=== PATIENT | female | born 1945 | race Caucasian/White ===

== ENCOUNTER 2020-10-18 05:17 | Emergency (ER) | payer MEDICARE, MEDICAID, SELFPAY ==
--- NOTE | ~2020-10-18 | CT_ITS ---
EXAMINATION: NONCONTRAST HEAD CT NONCONTRAST CERVICAL SPINE CT INDICATION INFORMATION: Fall COMPARISON: None TECHNIQUE: Separate noncontrast CT examinations of the head and cervical spine were performed. Coronal and sagittal images were created for each examination at the technologist workstation. This CT examination was performed using dose optimization techniques as appropriate, variously including the following: *Automated exposure control *Adjustment of mA and/or kV according to patient size (this includes techniques or standardized protocols for targeted exams where dose is matched to indication/reason for exam; i.e. extremities or head) *Use of iterative reconstruction technique DLP: 1184 mGy-cm FINDINGS: Head: There is no evidence of acute intracranial hemorrhage or territorial infarction. No abnormal mass effect or midline shift is seen. Osborne to white matter differentiation is well preserved. No extra-axial fluid collections are identified. No hydrocephalus. No significant volume loss. Patchy periventricular and deep white matter hypoattenuation is consistent with mild small vessel ischemic changes. No acute osseous or soft tissue abnormality. The mastoid air cells and visualized portions of the paranasal sinuses are well aerated. Cervical spine: Straightening of the normal cervical lordosis. There is otherwise anatomic alignment of the vertebral bodies and posterior elements. The atlantoaxial and atlantooccipital articulations are intact. Vertebral body heights are maintained. There is multilevel intervertebral disc space narrowing with endplate osteophyte formation and facet arthropathy. No evidence of acute fracture. No prevertebral soft tissue swelling. Emphysema noted at the lung apices.. The thyroid gland is unremarkable. CT/CT cervical spine wo con IMPRESSION: 1. No acute intracranial finding. 2. No fracture or malalignment of the cervical spine. Moderate degenerative change.
--- NOTE | ~2020-10-18 | XR_ITS ---
EXAMINATION: XR FOOT, RIGHT CLINICAL INFORMATION: Pain at the midfoot after fall COMPARISON: 07/18/2016 TECHNIQUE: AP, lateral, and oblique views of the right foot. FINDINGS: There is no fracture or dislocation. Alignment is maintained. Mild soft tissue swelling at the ankle and midfoot. Joint spaces are maintained. XR/XR foot RT 2V IMPRESSION: Soft tissue swelling. No fracture or malalignment.
[2020-10-18 05:33] VITALS: BP 108/72; BP 136/74; PULSE 71; PULSE 76; RESP 16; TEMP 36.4; O2SAT 94; O2SAT 95; BMI 31.9
--- NOTE | 2020-10-18 05:35 | ED.FALL ---
HPI - Fall General Chief Complaint: Fall Stated Complaint: FALL FROM WHEELCHAIR Time Seen by Provider: 10/18/20 05:33 Source: patient Mode of arrival: EMS History of Present Illness HPI Narrative: This is a 75-year-old female with history of cerebral palsy and lives at home alone and gets around the home with a wheelchair. Patient states that she takes a lot of medication at bedtime and when she got up to use the restroom states that she became weak resulting in her ?sliding out of her wheelchair and landing on the hard floor?. She denies head strike or loss of consciousness but states that her right foot hurts. Otherwise, she denies any recent fever, chills, cough, shortness of breath/chest pain, GI symptoms, or urinary pain/burning/frequency. Related Data Home Medications Medication Instructions Recorded Confirmed cyclobenzaprine 1 tab PO BID 10/18/20 10/18/20 diazepam 1 tab PO TID 10/18/20 10/18/20 gabapentin 1 - 2 cap PO BEDTIME PRN 10/18/20 10/18/20 metoprolol succinate 1 tab PO DAILY 10/18/20 10/18/20 simvastatin 1 tab PO DAILY 10/18/20 10/18/20 sulindac 1 tab PO BID 10/18/20 10/18/20 Allergies Allergy/AdvReac Type Severity Reaction Status Date / Time No Known Allergies Allergy Verified 10/18/20 05:39 [No Known Allergies*] Review of Systems Review of Systems: Pertinent positives and negatives as stated in HPI 10 point review of systems is otherwise negative. PMFSH Past Medical History Source: nursing notes reviewed Social History Social History Advance Directives: No Physical Exam Vital Signs: Vital Signs: Last Vital Signs Temp 97.6 F 10/18/20 05:33 Pulse 71 10/18/20 05:33 Resp 16 10/18/20 05:33 BP 108/72 10/18/20 05:33 Pulse Ox 94 10/18/20 05:33 Body Mass Index 31.9 VITAL SIGNS: Reviewed. GENERAL: Well developed, well nourished, in no acute distress. HEAD: Normocephalic/atraumatic, EYES: PERRLA, EOMI NOSE: Nares patent bilateral OROPHARYNX: no oral lesions noted, posterior pharynx clear NECK: C-collar in place without midline cervical spine tenderness on palpation LUNGS: Normal breath sounds. SpO2<> CARDIOVASCULAR: Regular rate and rhythm without noted murmurs ABDOMEN: Soft, non-tender, non-distended with bowel sounds. RIGHT FOOT: NO TENDERNESS ON PALPATION TO MEDIAL/LATERAL MALLEOLI/HEEL, BUT MID FOOT TENDERNESS NOTED WITHOUT OBVIOUS DEFORMITY, NO TOE TENDERNESS ON PALPATION, OTHERWISE NEUROVASCULARLY INTACT WITH CAPILLARY REFILL LESS THAN 3 SECONDS AND PALPABLE DP/PT. SKIN: Inspection of the skin reveals no rashes NEUROLOGIC: Alert and oriented x 4. Course Course Course Narrative: This is a 75-year-old female with history and clinical presentation consistent with minor fall from wheelchair without head strike or loss of consciousness, will evaluate for evidence of infection/anemia/arrhythmia for possible etiologies as she does live at home by herself. In addition, will obtain CT head/C-spine as well as x-ray of right foot. Signed out to Dr Gil: Plan to f/u labs/CT/EKG/UA and likely discharge to home. Discharge Plan Discharge Prescriptions: No Action metoprolol succinate 100 mg tablet extended release 24 hr 1 tab PO DAILY RF: 0 simvastatin 80 mg tablet 1 tab PO DAILY RF: 0 gabapentin 300 mg capsule 1 - 2 cap PO BEDTIME PRN (Reason: insomnia) RF: 0 sulindac 200 mg tablet 1 tab PO BID RF: 0 diazepam 5 mg tablet 1 tab PO TID RF: 0 cyclobenzaprine 5 mg tablet 1 tab PO BID RF: 0
--- NOTE | 2020-10-18 05:41 | ECG_ITS ---
Test Reason : FALL Blood Pressure : / mmHG Vent. Rate : 072 BPM Atrial Rate : 072 BPM P-R Int : 148 ms QRS Dur : 086 ms QT Int : 400 ms P-R-T Axes : 044 045 043 degrees QTc Int : 438 ms Normal sinus rhythm Normal ECG When compared with ECG of 01-MAR-2020 13:12, Vent. rate has decreased BY [address] elevation now present in Inferior leads Nonspecific T wave abnormality has replaced inverted T waves in Inferior leads Referred By: Heather Frias Electronically Signed By:DAPHNEY PORTER MD
[2020-10-18 06:00] VITALS: BP 127/55; PULSE 70; RESP 16; TEMP 37.1; O2SAT 95
[2020-10-18 06:31] LABS: Basophils Percent Auto 0.4 % (0-2); Eosinophils Absolute Auto 0.1 X10*3/uL (0.0-0.4); Eosinophils Percent Auto 2.1 % (0-4); Hematocrit 40.6 % (37-47); Hemoglobin 13.5 g/dl (12.0-16.0); Imm Gran Abs Auto 0.02 X10*3/uL (0.00-0.03); Imm Gran Pct Auto 0.3 % (0.0-0.4); Lymphocytes Absolute Auto 1.6 X10*3/uL (1.2-4.9); Lymphocytes Percent Auto 23.7 % (20-40); MANUAL DIFF FLAG NO; Mean Corpuscular HGB Conc 33.3 g/dl (31.0-35.0); Mean Corpuscular Hemoglobin 29.9 pg (27.0-33.0); Mean Platelet Volume 8.8 fL (9.4-12.3); Monocytes Absolute Auto 0.6 X10*3/uL (0.1-1.2); Monocytes Percent Auto 8.7 % (2-11); Neutrophils Absolute Auto 4.4 X10*3/uL (2.0-8.3); Neutrophils Percent Auto 64.8 % (45-73); Platelet Count 201 X10*3/uL (160-400); Red Blood Count 4.51 X10*6/uL (4.20-5.50); Red Cell Distribution Width 12.4 % (11.0-16.0); White Blood Count 6.8 X10*3/uL (4.8-10.8)
[2020-10-18 06:34] LABS: Glucose Urine UA NEG (NEG); Leukocyte Esterase Urine NEG (NEG); Nitrite Urine NEG (NEG); Specific Gravity - Urine >= 1.030 (1.005-1.025); Urine Blood NEG (NEG); Urine Ketones NEG (NEG); Urine Protein NEG (NEG-TRACE)
[2020-10-18 06:36] LABS: Appearance Urine CLEAR; Color Urine YELLOW
[2020-10-18 07:02] LABS: Alanine Aminotransferase 15 U/L (0-31); Albumin Level 4.1 g/dL (3.5-5.0); Alkaline Phosphatase 102 U/L (39-117); Anion Gap 10 (12-20); Aspartate Amino Transferase 15 U/L (5-31); Bilirubin Total 0.6 mg/dL (0.0-1.0); Blood Urea Nitrogen 19 mg/dL (9-16); Carbon Dioxide 26 mmol/L (22-29); Chloride 109 mmol/L (96-108); Creatinine Clr Calc Pharmacy 69.5; Estimated Glomerular Filt Rate > 60; Glucose Random 94 mg/dL (60-115); Sodium 141 mmol/L (135-145); Total Protein 6.3 g/dL (6.5-8.0)
[2020-10-18 10:16] VITALS: BP 127/55; PULSE 70; O2SAT 95
--- NOTE | 2020-10-18 10:18 | MHC.CM.ED ---
pt lives in [facility], she is wc bound, but trnfrs independently from bed to wc to toilet, etc...she does not use or own a walker c trnfrs. PT did see patient and they are recommending Acute Rehab, however despite this recommendation pt is choosing to return home c vna for nsg and home PT. a ref. for this has been made. pt says she will need ambulance c stretcher for transport back, she also says there is nobody we at [facility] need to contact at her [facility] prior to her returning. pt has [facility] for [employer] 4d/wk - 1-2 hrs per visit. she is also eligible for MOW which she may chose to start to recieve. dc plan is home c vna for nsg and home PT. [facility] and . are aware of this dc plan cm to cont to follow.
== END 2020-10-18 12:06 | disposition home or self-care (01) ==
PROVIDERS: Student in an Organized Health Care Education/Training Program; Emergency Provider Emergency Medicine Emergency Medical Services; PCP Internal Medicine
DX: S99.921A Unspecified injury of right foot, initial encounter (principal); M54.2 Cervicalgia; M79.671 Pain in right foot; G44.309 Post-traumatic headache, unspecified, not intractable; G80.9 Cerebral palsy, unspecified; W05.0XXA Fall from non-moving wheelchair, initial encounter; Y93.9 Activity, unspecified; Y92.002 Bathroom of unspecified non-institutional (private) residence as the place of occurrence of the external cause; Y99.9 Unspecified external cause status; Z79.899 Other long term (current) drug therapy
CPT/HCPCS: 36415; 51702; 70450; 72125; 73620; 80053; 81003; 85025; 93005; 97162; 99283; 99284

== ENCOUNTER 2021-04-27 18:27 | Emergency (ER) | payer MEDICARE, OTHER, SELFPAY ==
--- NOTE | ~2021-04-27 | CT_ITS ---
EXAMINATION: CT HEAD WITHOUT CONTRAST CLINICAL INFORMATION: Severe dizziness COMPARISON: 10/18/2020 TECHNIQUE: Contiguous axial imaging was performed from the skull base to vertex without intravenous administration of contrast. This CT examination was performed using dose optimization techniques as appropriate, variously including the following: *Automated exposure control *Adjustment of mA and/or kV according to patient size (this includes techniques or standardized protocols for targeted exams where dose is matched to indication/reason for exam; i.e. extremities or head) *Use of iterative reconstruction technique DLP: 763 mGy-cm FINDINGS: Cavitation is degraded by patient motion. There is no evidence of acute intracranial hemorrhage or territorial infarction. No abnormal mass effect or midline shift is seen. Chronic and age-related periventricular white matter changes are again seen. Osborne to white matter differentiation is well preserved. No extra-axial fluid collections are identified. The ventricles are normal in size. There is no abnormal attenuation within the brain parenchyma. The osseous structures and soft tissues are normal. The mastoid air cells and visualized portions of the paranasal sinuses are well aerated. CT/CT head/brain wo con IMPRESSION: Although degraded by motion, I do not appreciate any superimposed acute intracranial process. No mass lesion or hemorrhage identified.
--- NOTE | 2021-04-27 18:40 | ED_ITS ---
HPI - Dizziness General Chief Complaint: Dizziness Stated Complaint: Dizziness, Nausea Time Seen by Provider: 04/27/21 18:33 Source: patient Mode of arrival: EMS Limitations: no limitations History of Present Illness HPI Narrative: Patient history of cerebral palsy and dystonia with frequent head movements complaining of been feeling dizzy since a.m. today especially when she lays down associated with nausea no vomiting no focal deficits no headache no fever no chills no cough or shortness of breath Related Data Home Medications Medication Instructions Recorded Confirmed cyclobenzaprine 5 mg tablet 1 tab PO BID 10/18/20 10/18/20 diazepam 5 mg tablet 1 tab PO TID 10/18/20 10/18/20 gabapentin 300 mg capsule 1 - 2 cap PO BEDTIME PRN 10/18/20 10/18/20 metoprolol succinate 100 mg 1 tab PO DAILY 10/18/20 10/18/20 tablet,extended release 24 hr simvastatin 80 mg tablet 1 tab PO DAILY 10/18/20 10/18/20 sulindac 200 mg tablet 1 tab PO BID 10/18/20 10/18/20 Previous Rx's Medication Instructions Recorded meclizine 25 mg tablet 25 mg PO TID PRN #14 tab 04/27/21 Allergies Allergy/AdvReac Type Severity Reaction Status Date / Time No Known Allergies Allergy Verified 10/18/20 05:39 [No Known Allergies*] Review of Systems Review of Systems: Yes all other systems are reviewed and are negative [facility] Past Medical History Medical History (Updated 04/28/21 @ 00:02 by Marry Guallpa) Cerebral palsy Social History Social History Advance Directives: No Advance Directives Information Provided: No Physical Exam Vital Signs: Vital Signs: Last Vital Signs Temp 98.1 F 04/27/21 20:00 Pulse 84 04/27/21 21:27 Resp 20 04/27/21 21:27 BP 142/76 H 04/27/21 21:27 Pulse Ox 98 04/27/21 20:00 Body Mass Index 36.6 Appearance: Alert. Oriented X3. No acute distress. Moving her head frequently secondary dystonia Eyes: PERRLA, No Nystagmus ENT: Pharynx normal. Oral Mucosa moist Neck: Normal inspection. Neck supple. CVS: Normal heart rate and rhythm. Pulses normal. Respiratory: No respiratory distress. Equal air entry bilateral, no wheezing/rales/rhonchi Abdomen: Soft and nontender. Bowel sounds are present, no mass palpable and no CVA tenderness Skin: Skin warm and dry. Normal skin color. Normal skin turgor. Extremities: No lower extremity edema. No calf tenderness Neuro: Oriented X 3. No motor deficit. No sensory deficit.No cerebellar signs , cranial nerves II-XII intact MDM - Dizziness MDM Narrative Medical decision making narrative: Patient clinically with benign positional vertigo CT head is negative no headache no fever no any signs of infection responded to meclizine and Ativan will discharge patient on meclizine patient already taking Valium at home Lab Data Attestation: I reviewed the patient's lab results. Result diagrams: 04/27/21 19:04/27/21 19: Labs: Lab Results 04/27/21 04/27/21 Range/Units 19: 19: WBC 6.3 (4.8-10.8) X10*3/uL RBC 4.36 (4.20-5.50) X10*6/uL Hgb 13.2 (12.0-16.0) g/dl Hct 39.2 (37-47) % MCV 89.9 (80-98) fL MCH 30.3 (27.0-33.0) pg MCHC 33.7 (31.0-35.0) g/dl RDW 12.9 (11.0-16.0) % Plt Count 220 (160-400) X10*3/uL MPV 8.9 L (9.4-12.3) fL Immature Gran % (Auto) 0.3 (0.0-0.4) % Neut % (Auto) 63.3 (45-73) % Lymph % (Auto) 24.6 (20-40) % [place] % (Auto) 8.1 (2-11) % Eos % (Auto) 3.2 (0-4) % Baso % (Auto) 0.5 (0-2) % Lymph # (Auto) 1.5 (1.2-4.9) X10*3/uL [place] # (Auto) 0.5 (0.1-1.2) X10*3/uL Eos # (Auto) 0.2 (0.0-0.4) X10*3/uL Baso # (Auto) 0.0 (0.0-0.2) X10*3/uL Abs Immat Gran (auto) 0.02 (0.00-0.03) X10*3/uL Absolute Neuts (auto) 4.0 (2.0-8.3) X10*3/uL Absolute Nucleated RBC 0.000 (0.0-0.012) X10*3/uL Nucleated RBC % (auto) 0.0 (0.0-0.2) /100WBC Sodium 139 (135-145) mmol/L Potassium 4.0 (3.3-5.1) mmol/L Chloride 107 (96-108) mmol/L Carbon Dioxide 24 (22-29) mmol/L Anion Gap 12 (12-20) BUN 16 (9-16) mg/dL Creatinine 0.73 (0.5-1.4) mg/dL Estim Creat Clear Calc 71.8 Estimated GFR > 60 Random Glucose 105 (60-115) mg/dL Calcium 9.3 (8.4-10.2) mg/dL Discharge Plan Discharge Clinical Impression: Benign paroxysmal positional vertigo Patient Disposition: Home, Self-Care Instructions: Benign Paroxysmal Positional Vertigo (ED) Additional Instructions: Take medication as advised For the PCP if not better Prescriptions: New meclizine 25 mg tablet 25 mg PO TID PRN (Reason: dizziness) Qty: 14 RF: 0 No Action metoprolol succinate 100 mg tablet extended release 24 hr 1 tab PO DAILY RF: 0 simvastatin 80 mg tablet 1 tab PO DAILY RF: 0 gabapentin 300 mg capsule 1 - 2 cap PO BEDTIME PRN (Reason: insomnia) RF: 0 sulindac 200 mg tablet 1 tab PO BID RF: 0 diazepam 5 mg tablet 1 tab PO TID RF: 0 cyclobenzaprine 5 mg tablet 1 tab PO BID RF: 0 Interventions: ED Discharge Assessment Last Done: 04/27/21 21:27 Discharge Date/Time: 04/27/21 21:28
[2021-04-27 18:43] VITALS: BP 150/72; PULSE 77; RESP 16; TEMP 36.6; O2SAT 98; BMI 36.6
[2021-04-27] MEDS: Meclizine HCl 25 MG TABLET PO (19:00)
--- NOTE | 2021-04-27 19:01 | PC.NURSE ---
Pt medicated per OCT. NSR on the monitor. Labs obtained and sent.
[2021-04-27 19:05] LABS: MANUAL DIFF FLAG NO
[2021-04-27 19:17] LABS: Basophils Percent Auto 0.5 % (0-2); Eosinophils Absolute Auto 0.2 X10*3/uL (0.0-0.4); Eosinophils Percent Auto 3.2 % (0-4); Hematocrit 39.2 % (37-47); Hemoglobin 13.2 g/dl (12.0-16.0); Imm Gran Abs Auto 0.02 X10*3/uL (0.00-0.03); Imm Gran Pct Auto 0.3 % (0.0-0.4); Lymphocytes Absolute Auto 1.5 X10*3/uL (1.2-4.9); Lymphocytes Percent Auto 24.6 % (20-40); Mean Corpuscular HGB Conc 33.7 g/dl (31.0-35.0); Mean Corpuscular Hemoglobin 30.3 pg (27.0-33.0); Mean Corpuscular Volume 89.9 fL (80-98); Mean Platelet Volume 8.9 fL (9.4-12.3); Monocytes Absolute Auto 0.5 X10*3/uL (0.1-1.2); Monocytes Percent Auto 8.1 % (2-11); Neutrophils Percent Auto 63.3 % (45-73); Platelet Count 220 X10*3/uL (160-400); Red Blood Count 4.36 X10*6/uL (4.20-5.50); Red Cell Distribution Width 12.9 % (11.0-16.0); White Blood Count 6.3 X10*3/uL (4.8-10.8)
[2021-04-27 19:21] LABS: Anion Gap 12 (12-20); Blood Urea Nitrogen 16 mg/dL (9-16); Calcium 9.3 mg/dL (8.4-10.2); Carbon Dioxide 24 mmol/L (22-29); Chloride 107 mmol/L (96-108); Creatinine Clr Calc Pharmacy 71.8; Estimated Glomerular Filt Rate > 60; Glucose Random 105 mg/dL (60-115); Sodium 139 mmol/L (135-145)
--- NOTE | 2021-04-27 19:46 | PC.NURSE ---
Labs obtained and sent.
[2021-04-27 20:00] VITALS: BP 145/71; PULSE 72; RESP 18; TEMP 36.7; O2SAT 98
[2021-04-27] MEDS: LORazepam 1 MG TABLET PO (20:22)
--- NOTE | 2021-04-27 20:22 | PC.NURSE ---
Pt reports no relief after Meclizine, medicated with Ativan per OCT.
[2021-04-27 21:27] VITALS: BP 142/76; PULSE 84; RESP 20
== END 2021-04-27 21:28 | disposition home or self-care (01) ==
PROVIDERS: Emergency Provider Internal Medicine
DX: H81.13 Benign paroxysmal vertigo, bilateral (principal); Z79.899 Other long term (current) drug therapy
CPT/HCPCS: 36415; 70450; 80048; 85025; 99283; 99284

== ENCOUNTER 2021-11-11 05:38 | Outpatient (REF) | payer MEDICARE, MEDICAID, SELFPAY ==
[2021-11-11 10:33] LABS: MANUAL DIFF FLAG NO
[2021-11-11 10:36] LABS: Basophils Percent Auto 0.5 % (0-2); Eosinophils Absolute Auto 0.2 X10*3/uL (0.0-0.4); Eosinophils Percent Auto 2.3 % (0-4); Hematocrit 41.1 % (37.0-47.0); Hemoglobin 13.4 g/dl (12.0-16.0); Imm Gran Abs Auto 0.03 X10*3/uL (0.00-0.03); Imm Gran Pct Auto 0.5 % (0.0-0.4); Lymphocytes Absolute Auto 1.8 X10*3/uL (1.2-4.9); Mean Corpuscular HGB Conc 32.6 g/dl (31.0-35.0); Mean Corpuscular Hemoglobin 29.5 pg (27.0-33.0); Mean Corpuscular Volume 90.3 fL (80.0-98.0); Mean Platelet Volume 9.7 fL (9.4-12.3); Monocytes Absolute Auto 0.5 X10*3/uL (0.1-1.2); Monocytes Percent Auto 7.3 % (2-11); Neutrophils Absolute Auto 4.1 x10*3/uL (2.0-8.3); Neutrophils Percent Auto 62.4 % (45-73); Platelet Count 221 X10*3/uL (160-400); Red Blood Count 4.55 X10*6/uL (4.20-5.50); Red Cell Distribution Width 12.8 % (11.0-16.0); White Blood Count 6.5 X10*3/uL (4.8-10.8)
[2021-11-11 11:25] LABS: Anion Gap 13 (12-20); Blood Urea Nitrogen 14 mg/dL (9-16); Calcium 9.4 mg/dL (8.4-10.2); Carbon Dioxide 25 mmol/L (22-29); Chloride 108 mmol/L (96-108); Estimated Glomerular Filt Rate > 60; Glucose Fasting 83 mg/dL (60-99); Potassium 4.4 mmol/L (3.3-5.1); Sodium 142 mmol/L (135-145)
[2021-11-11 11:33] LABS: Free T4 (Free Thyroxine) 0.85 ng/dL (0.71-1.85); Thyroid Stimulating Hormone 4.37 uIU/mL (0.32-4.0)
[2021-11-12 14:39] LABS: Alanine Aminotransferase 31 U/L (0-31); Alkaline Phosphatase 118 U/L (39-117); Aspartate Amino Transferase 22 U/L (5-31); Bilirubin Direct 0.3 mg/dL (0.0-0.5); Bilirubin Total 0.9 mg/dL (0.0-1.0); Total Protein 6.3 g/dL (6.5-8.0)
== END 2021-11-11 05:39 | disposition home or self-care (01) ==
LOC: HO.LHD 05:38
PROVIDERS: Visit Provider Internal Medicine
DX: R53.83 Other fatigue (principal); E78.5 Hyperlipidemia, unspecified
CPT/HCPCS: 36415; 80048; 80076; 84439; 84443; 85025

== ENCOUNTER 2022-02-06 06:04 | Outpatient (REF) | payer MEDICARE, MEDICAID, SELFPAY ==
[2022-02-06 09:56] LABS: MANUAL DIFF FLAG NO
[2022-02-06 09:59] LABS: Basophils Percent Auto 0.5 % (0-2); Eosinophils Absolute Auto 0.2 X10*3/uL (0.0-0.4); Eosinophils Percent Auto 2.8 % (0-4); Hemoglobin 13.5 g/dl (12.0-16.0); Imm Gran Abs Auto 0.02 X10*3/uL (0.00-0.03); Imm Gran Pct Auto 0.3 % (0.0-0.4); Lymphocytes Absolute Auto 1.7 X10*3/uL (1.2-4.9); Mean Corpuscular HGB Conc 32.1 g/dl (31.0-35.0); Mean Corpuscular Hemoglobin 29.1 pg (27.0-33.0); Mean Corpuscular Volume 90.5 fL (80.0-98.0); Mean Platelet Volume 9.7 fL (9.4-12.3); Monocytes Absolute Auto 0.4 X10*3/uL (0.1-1.2); Monocytes Percent Auto 7.3 % (2-11); Neutrophils Absolute Auto 3.7 x10*3/uL (2.0-8.3); Neutrophils Percent Auto 61.1 % (45-73); Platelet Count 227 X10*3/uL (160-400); Red Blood Count 4.64 X10*6/uL (4.20-5.50); Red Cell Distribution Width 13.1 % (11.0-16.0)
[2022-02-06 10:56] LABS: Alanine Aminotransferase 39 U/L (0-31); Alkaline Phosphatase 128 U/L (39-117); Anion Gap 11 (12-20); Aspartate Amino Transferase 31 U/L (5-31); Bilirubin Total 0.7 mg/dL (0.0-1.0); Blood Urea Nitrogen 13 mg/dL (9-16); Carbon Dioxide 25 mmol/L (22-29); Chloride 110 mmol/L (96-108); Cholesterol 118 mg/dL; Estimated Glomerular Filt Rate > 60; Glucose Fasting 82 mg/dL (60-99); HDL Cholesterol 42 mg/dL; LDL Cholesterol Calculated 52 mg/dl; Potassium 4.3 mmol/L (3.3-5.1); Sodium 142 mmol/L (135-145); Total Protein 6.3 g/dL (6.5-8.0); Triglycerides 120 mg/dL
[2022-02-06 11:18] LABS: Free T4 (Free Thyroxine) 0.84 ng/dL (0.71-1.85); Thyroid Stimulating Hormone 2.85 uIU/mL (0.32-4.0)
== END 2022-02-06 06:05 | disposition home or self-care (01) ==
LOC: HO.LHD 06:04
PROVIDERS: Visit Provider Internal Medicine
DX: R53.83 Other fatigue (principal); E03.9 Hypothyroidism, unspecified
CPT/HCPCS: 36415; 80053; 80061; 84439; 84443; 85025

== ENCOUNTER 2022-03-09 10:51 | Inpatient (IN) | payer MEDICARE, OTHER, SELFPAY ==
[2022-03-09] VITALS (7 sets, daily range): BP systolic 133–167; BP diastolic 79–99; PULSE 77–124; RESP 18–28; TEMP 37.6; O2SAT 91–100; BMI 32.9
--- NOTE | ~2022-03-09 | XR_ITS ---
EXAMINATION: XR CHEST CLINICAL INFORMATION: Cough. COMPARISON: 03/01/2020 chest radiograph. TECHNIQUE: Frontal view of the chest was obtained. FINDINGS: Opacities are seen in the left lower lung. The right lung is clear. The heart and mediastinal structures are unremarkable. XR/XR chest 1V IMPRESSION: Left lower lung infiltrates.
--- NOTE | ~2022-03-09 | CT_ITS ---
EXAMINATION: CT head/brain wo con CLINICAL INFORMATION: Reason for Exam headache COMPARISON: CT head without contrast 04/27/2021 TECHNIQUE: Contiguous axial imaging was performed from the skull base to vertex without intravenous contrast. Sagittal and coronal reformatted images were obtained. This CT examination was performed using dose optimization techniques as appropriate, variously including the following: * Automated exposure control * Adjustment of mA and/or kV according to patient size (this includes techniques or standardized protocols for targeted exams where dose is matched to indication/reason for exam; i.e. extremities or head) Use of iterative reconstruction technique DLP: 785 mGy-cm FINDINGS: Significantly motion degraded examination. No acute osseous or soft tissue abnormality. The mastoid air cells and visualized portions of the paranasal sinuses are well aerated. There is no evidence of acute intracranial hemorrhage or territorial infarction. No abnormal mass effect or midline shift is seen. Osborne to white matter differentiation is well preserved. No extra-axial fluid collections are identified. No hydrocephalus. No significant volume loss. There is no abnormal attenuation within the brain parenchyma. CT/CT head/brain wo con IMPRESSION: Significantly motion degraded examination. Within this limitation, no acute intracranial abnormality is identified.
--- NOTE | ~2022-03-09 | CT_ITS ---
EXAMINATION: CT CHEST WITHOUT CONTRAST CLINICAL INFORMATION: Pneumonia. COMPARISON: None TECHNIQUE: Multidetector volumetric CT imaging of the chest was done. Axial MIP volume rendering provided. Sagittal and coronal reformatted images were obtained. This CT examination was performed using dose optimization techniques as appropriate, variously including the following: *Automated exposure control *Adjustment of mA and/or kV according to patient size (this includes techniques or standardized protocols for targeted exams where dose is matched to indication/reason for exam; i.e. extremities or head) *Use of iterative reconstruction technique DLP: 260 to mGy-cm FINDINGS: BOOM STICK MAN: There is elevated right hemidiaphragm. LUNGS: The lungs are well-inflated with patchy opacity in the lingular segment suggestive of infiltrate. Minimal stranding/airspace disease seen in the anterior segment of left lower lobe and left upper lobe. The right lung is clear. MEDIASTINUM: The heart size and the great vessels are normal caliber. There is no pericardial effusion. Central trachea and the bronchi are widely patent. Thyroid lobes are symmetrical and normal. No abnormal size mediastinal lymph nodes seen. PLEURA: There is no pleural effusion. No pleural mass or thickening. AXILLA: No lymphadenopathy. UPPER ABDOMEN: Unremarkable. OSSEOUS STRUCTURES: No lytic or sclerotic process seen. CT/CT chest wo con IMPRESSION: Lingular and minimal left upper and lower lower lobe anterior segment infiltrates concordant with chest x-ray findings. Fleischner guidelines were followed.
[2022-03-09 11:39] LABS: Hemoglobin 13.9 g/dl (12.0-16.0); Mean Corpuscular HGB Conc 33.1 g/dl (31.0-35.0); Mean Corpuscular Hemoglobin 28.9 pg (27.0-33.0); Mean Corpuscular Volume 87.3 fL (80.0-98.0); Mean Platelet Volume 9.3 fL (9.4-12.3); Platelet Count 159 X10*3/uL (160-400); Red Blood Count 4.81 X10*6/uL (4.20-5.50); Red Cell Distribution Width 13.2 % (11.0-16.0); White Blood Count 4.1 X10*3/uL (4.8-10.8)
[2022-03-09 11:55] LABS: Alanine Aminotransferase 32 U/L (0-31); Albumin Level 4.3 g/dL (3.5-5.0); Alkaline Phosphatase 134 U/L (39-117); Anion Gap 12 (12-20); Aspartate Amino Transferase 32 U/L (5-31); Bilirubin Total 0.6 mg/dL (0.0-1.0); Blood Urea Nitrogen 15 mg/dL (9-16); COVID-19 Test Negative (Negative); Calcium 8.5 mg/dL (8.4-10.2); Carbon Dioxide 23 mmol/L (22-29); Chloride 106 mmol/L (96-108); Creatinine Clr Calc Pharmacy 59.6; Estimated Glomerular Filt Rate > 60; Glucose Random 107 mg/dL (60-115); IDNOW Serial# 16C4AD1C; Potassium 3.9 mmol/L (3.3-5.1); Sodium 137 mmol/L (135-145)
--- NOTE | 2022-03-09 13:49 | ED_ITS ---
HPI - SOB/Dyspnea General Chief Complaint: Upper Respiratory Symptoms Stated Complaint: CP W/NONPROD COUGH Time Seen by Provider: 03/09/22 13:41 Source: patient Mode of arrival: ambulatory Limitations: no limitations History of Present Illness HPI Narrative: A 76-year-old female presents the emergency department with acute respiratory distress. Patient started with 3 days of productive cough patient had been fartun ting for some time before being brought back to room patient went and wheezing she denies having history of COPD or asthma he does have history of cerebral palsy MD elicited complaint: shortness of breath and cough Related Data Home Medications Medication Instructions Recorded Confirmed cyclobenzaprine 5 mg tablet 1 tab PO BID 10/18/20 03/09/22 metoprolol succinate 100 mg 1 tab PO DAILY 10/18/20 03/09/22 tablet,extended release 24 hr simvastatin 80 mg tablet 1 tab PO DAILY 10/18/20 03/09/22 pregabalin 50 mg capsule 1 cap PO BID 03/09/22 03/09/22 Allergies Allergy/AdvReac Type Severity Reaction Status Date / Time No Known Allergies Allergy Verified 10/18/20 05:39 [No Known Allergies*] Review of Systems Review of Systems: Review of systems: General: Patient denies any fever chills recent illness or falls Musculoskeletal: Denies back pain or body aches or other injuries HEENT: denies headache, runny nose, ear pain Respiratory: shortness of breath, cough Cardiovascular: no chest pain or palpitations : denies dysuria, frequency Abdomen: no nausea vomiting denies abdominal pain Extremities: no swelling, no pain Skin: no diaphoresis Yes all other systems are reviewed and are negative [facility] Past Medical History Attestation statement: The following information was validated with the patient. Medical History (Updated 03/09/22 @ 15:28 by Barrington Trevino DO) Cerebral palsy Social History Social History Advance Directives: Yes Advance Directives Information Provided: Yes Advance Directives on File: No Physical Exam Vital Signs: Vital Signs: Last Vital Signs Temp 99.6 F 03/09/22 15:04 Pulse 124 H 03/09/22 15:04 Resp 24 H 03/09/22 15:04 BP 133/99 H 03/09/22 15:04 Pulse Ox 98 03/09/22 15:04 O2 Del Method 03/09/22 15:04 O2 Flow Rate 4 03/09/22 15:04 Oxygen Flow Rate 4 03/09/22 15:02 BMI result Body Mass Index 32.9 General: Ill-appearing well-nourished in no signs of distress HEENT: Normocephalic atraumatic Neck: No signs of JVD, no masses no tenderness or lymphadenopathy Cardiovascular: Regular rate and rhythm Respiratory: Wheezing with rhonchi bilaterally Abdomen: Soft nontender no masses Extremities: Normal pedal pulses no signs of edema Skin: Dry warm no rashes Back: No tenderness full ROM MDM - SOB/Dyspnea MDM Narrative Medical decision making narrative: Concern for new onset of COPD or asthma exacerbation at least bronchitis x-ray does show infiltrate patient will likely require admission give patient some breathing treatments see things patient feeling better also the patient prednisone and doxycycline. Patient re-evaluated multiple times she did improve with breathing treatments though she is tachycardic now. I will give some ativan and zofran as she has some nausea at this time. She looks better but still with increased work of breathing. I think she will benefit from admission and continued breathing treatments. Differential Diagnosis Differential diagnosis: Likely acute exacerbation of chronic obstructive airways disease, congestive heart failure, pneumonia and asthma with exacerbation Lab Data Result diagrams: 03/09/22 11:28 03/09/22 11:28 Labs: Lab Results 03/09/22 03/09/22 03/09/22 Range/Units 11:28 11:28 11:28 WBC 4.1 L (4.8-10.8) X10*3/uL RBC 4.81 (4.20-5.50) X10*6/uL Hgb 13.9 (12.0-16.0) g/dl Hct 42.0 (37.0-47.0) % MCV 87.3 (80.0-98.0) fL MCH 28.9 (27.0-33.0) pg MCHC 33.1 (31.0-35.0) g/dl RDW 13.2 (11.0-16.0) % Plt Count 159 L D (160-400) X10*3/uL MPV 9.3 L (9.4-12.3) fL Absolute Nucleated RBC 0.000 (0.0-0.012) X10*3/uL Nucleated RBC % (auto) 0.0 (0.0-0.2) /100WBC Sodium 137 (135-145) mmol/L Potassium 3.9 (3.3-5.1) mmol/L Chloride 106 (96-108) mmol/L Carbon Dioxide 23 (22-29) mmol/L Anion Gap 12 (12-20) BUN 15 (9-16) mg/dL Creatinine 0.82 (0.5-1.4) mg/dL Estim Creat Clear Calc 59.6 Estimated GFR > 60 Random Glucose 107 (60-115) mg/dL Lactic Acid (0.5-2.0) mmol/L Calcium 8.5 (8.4-10.2) mg/dL Total Bilirubin 0.6 (0.0-1.0) mg/dL AST 32 H (5-31) U/L ALT 32 H (0-31) U/L Alkaline Phosphatase 134 H (39-117) U/L B-Natriuretic Peptide (<100) pg/mL Total Protein 7.0 (6.5-8.0) g/dL Albumin 4.3 (3.5-5.0) g/dL COVID-19 (LI) Negative (Negative) COVID-19 Clin Com See Note 03/09/22 03/09/22 Range/Units 14:12 14:12 WBC (4.8-10.8) X10*3/uL RBC (4.20-5.50) X10*6/uL Hgb (12.0-16.0) g/dl Hct (37.0-47.0) % MCV (80.0-98.0) fL MCH (27.0-33.0) pg MCHC (31.0-35.0) g/dl RDW (11.0-16.0) % Plt Count (160-400) X10*3/uL MPV (9.4-12.3) fL Absolute Nucleated RBC (0.0-0.012) X10*3/uL Nucleated RBC % (auto) (0.0-0.2) /100WBC Sodium (135-145) mmol/L Potassium (3.3-5.1) mmol/L Chloride (96-108) mmol/L Carbon Dioxide (22-29) mmol/L Anion Gap (12-20) BUN (9-16) mg/dL Creatinine (0.5-1.4) mg/dL Estim Creat Clear Calc Estimated GFR Random Glucose (60-115) mg/dL Lactic Acid 0.8 (0.5-2.0) mmol/L Calcium (8.4-10.2) mg/dL Total Bilirubin (0.0-1.0) mg/dL AST (5-31) U/L ALT (0-31) U/L Alkaline Phosphatase (39-117) U/L B-Natriuretic Peptide 18 (<100) pg/mL Total Protein (6.5-8.0) g/dL Albumin (3.5-5.0) g/dL COVID-19 (LI) (Negative) COVID-19 Clin Com Critical Care Time Critical Care Time Critical Care Time: Yes Total Critical Care Time: 35 Attestation: Patient with increased work of breathing requiring multiple visits patient also struck him some leg cramps had resolved with movement were able to also give the patient multiple breathing treatments and steroids as well as antibiotics for pneumonia. Discharge Plan Discharge Clinical Impression: Bronchitis, Cough, Bilateral wheezing, Pneumonia Patient Disposition: Admitted As Inpatient
[2022-03-09] MEDS: methylPREDNISolone Sod Succ 125 MG/2 ML VIAL IVPUSH (14:22)
[2022-03-09] MEDS: Lactated Ringers 1,000 ML 999 ML IV (14:23)
[2022-03-09 14:32] LABS: B Type Natriuretic Peptide 18 pg/mL (<100); Lactic Acid 0.8 mmol/L (0.5-2.0)
[2022-03-09] MEDS: Albuterol Sulfate (0.083%) 2.5 MG/3 ML VIAL.NEB 10 MG INHALE (14:33)
--- NOTE | 2022-03-09 15:07 | PHA.MEDREC ---
Pharmacy Consult ? Medication Reconciliation Pharmacy has completed the medication reconciliation. Patient brought in RX bottle. Patient reports she is no longer taking sulindac. Reports no OTC medications. Tiffany Kolb, SofiaD
[2022-03-09] MEDS: ondansetron HCL 4 MG/2 ML VIAL IVPUSH (15:23)
[2022-03-09] MEDS: LORazepam 1 MG TABLET PO (15:59)
[2022-03-09] MEDS: cefTRIAXone sodium 1 GM in 0.9 % Sodium Chloride 50 ML IV (16:30)
--- NOTE | 2022-03-09 16:45 | PM.IMHP ---
History of Present Illness Date of Service: 03/09/22 Chief Complaint: cough, dyspnea, wheeze 76yo F with cerebral palsy, HTN, and HLD who has lived at [facility] for the past 5 years. She is wheelchair-dependent. She presents with a 3-day history of worsening cough productive of thick sputum, dyspnea, and wheezing. She does not smoke and has no history of asthma or COPD. No fever, chills, headache, or chills. She does endorse tinnitus and ear pressure. No sore throat. No nausea or vomitin In the ED, she was found to be tachycardic at 111-124 and tachypneic at 24. She was hypoxic, requiring 4L O2 via nasal cannula to maintain normal SaO2. She had extensive inspiratory and expiratory wheezes and was given 125 mg of IV methylprednisolone as well as 10 mg of nebulized albuterol. Review of Systems Review of Systems: Yes all other systems are reviewed and are negative FORMERLY [facility], 1928–1983 Medical History (Updated 03/09/22 @ 16:51 by Macy Aguilera MD) Cerebral palsy Chronic pain Hyperlipidemia Hypertension Surgical History (Updated 03/09/22 @ 16:51 by Macy Aguilera MD) History of orthopedic surgery Social History Advance Directives: Yes Advance Directives Information Provided: Yes Advance Directives on File: No Meds Allergies Allergy/AdvReac Type Severity Reaction Status Date / Time No Known Allergies Allergy Verified 10/18/20 05:39 [No Known Allergies*] Active Medications: Current Medications Albuterol Sulfate (Albuterol Sulfate (0.083%) 2.5 Mg/3 Ml Vial.Neb) 2.5 mg INHALE Q2H PRN PRN Reason: Shortness of Breath/Wheezing Albuterol/Ipratropium (Albuterol/Iprat 2.5/0.5mg 3 Ml Ampul.Neb) 3 ml INHALE RQ4H WHILE AWAKE [facility] Atorvastatin Calcium (Atorvastatin Calcium 40 Mg Tablet) 40 mg PO BEDTIME [facility] Cyclobenzaprine HCl (Cyclobenzaprine Hcl 5 Mg Tablet) 5 mg PO BID [facility] Ceftriaxone Sodium 1 gm/ (Sodium Chloride) 50 mls @ 100 mls/hr IV ONCE ONE Stop: 03/09/22 16:48 Last Admin: 03/09/22 16:30 Dose: 100 mls/hr Ceftriaxone Sodium 1 gm/ (Sodium Chloride) 50 mls @ 100 mls/hr IV Q24H [facility] Doxycycline Hyclate 100 mg/ (Sodium Chloride) 250 mls @ 166.67 mls/hr IV Q12H [facility] Methylprednisolone Sodium Succinate (Methylprednisolone Sod Succ 40 Mg/Ml Vial) 40 mg IVPUSH Q24H [facility] Metoprolol Succinate (Metoprolol Succinate Er 100 Mg Tab.Er.24h) 100 mg PO DAILY [facility]; Protocol Pharmacy Consult (Consult Rx Perform Med Rec) 1 each MISCELLANE ONCE PRN PRN Reason: Consult order Pregabalin (Pregabalin 50 Mg Capsule) 50 mg PO BID [facility] Home Medications Medication Instructions Recorded Confirmed Last Taken Type cyclobenzaprine 5 mg tablet 1 tab PO BID 10/18/20 03/09/22 03/08/22 History metoprolol succinate 100 mg 1 tab PO DAILY 10/18/20 03/09/22 03/09/22 History tablet,extended release 24 hr simvastatin 80 mg tablet 1 tab PO DAILY 10/18/20 03/09/22 03/08/22 History pregabalin 50 mg capsule 1 cap PO BID 03/09/22 03/09/22 03/08/22 History Physical Exam Vital Signs and Narrative: Vital Signs: Last Vital Signs Temp 99.6 F 03/09/22 15:04 Pulse 124 H 03/09/22 15:04 Resp 24 H 03/09/22 15:04 BP 133/99 H 03/09/22 15:04 Pulse Ox 98 03/09/22 15:04 O2 Del Method 03/09/22 15:04 O2 Flow Rate 4 03/09/22 15:04 Oxygen Flow Rate 4 03/09/22 15:02 BMI result Body Mass Index 32.9 Gen: in moderate respiratory distress, awake, conversant HEENT: sclera anicteric, moist mucus membranes Neck: supple Lungs: diffuse expiratory and inspiratory wheezes Heart: tachycardic, no murmurs Abd: soft, non-tender, non-distended Ext: no edema Skin: warm/well-perfused Neuro: alert and oriented x3, multiple contractures Psych: appropriate affect Results Labs CBC and Chem 7: 03/09/22 11:28 03/09/22 11:28 Labs: Laboratory Results - last 24 hr 03/09/22 03/09/22 03/09/22 11:28 11:28 11:28 MCV 87.3 MCH 28.9 MCHC 33.1 RDW 13.2 Plt Count 159 L D MPV 9.3 L Absolute Nucleated RBC 0.000 Nucleated RBC % (auto) 0.0 Anion Gap 12 Estim Creat Clear Calc 59.6 Estimated GFR > 60 Random Glucose 107 Lactic Acid Calcium 8.5 Total Bilirubin 0.6 AST 32 H ALT 32 H Alkaline Phosphatase 134 H B-Natriuretic Peptide Total Protein 7.0 Albumin 4.3 COVID-19 (LI) Negative COVID-19 Clin Com See Note 03/09/22 03/09/22 14:12 14:12 MCV MCH MCHC RDW Plt Count MPV Absolute Nucleated RBC Nucleated RBC % (auto) Anion Gap Estim Creat Clear Calc Estimated GFR Random Glucose Lactic Acid 0.8 Calcium Total Bilirubin AST ALT Alkaline Phosphatase B-Natriuretic Peptide 18 Total Protein Albumin COVID-19 (LI) COVID-19 Clin Com Imaging Radiologist's Impressions: Impressions Chest X-Ray 03/09/22 11:45 IMPRESSION: Left lower lung infiltrates. Assessment and Plan (1) Pneumonia: Status: Acute Plan 76yo F long-term SNF resident with CP, HTN, and HLD presenting with productive cough, dyspnea, and wheezing, found to be septic and hypoxic from pneumonia. # sepsis due to pneumonia - PORT/PSI 74 (risk class III, 0.9-2.8% mortality) but she is hypoxic and thus has to be admitted. admit to M/S, check sputum + blood cultures along with respiratory virus panel and pneumococcal/Legionella urine antigens. give ceftriaxone + doxycycline. given severe wheezing, will also give IV methlylprednisolone and scheduled + prn bronchodilator nebulizations. # acute hypoxic respiratory failure - supplemental O2, wean as tolerated CHRONIC CONDITIONS # HTN: continue metoprolol succinate # HLD: continue statin # chronic pain: continue cyclobenzaprine + pregabalin # VTE prophylaxis: LMWH # code status: DNR/DNI I anticipate that the patient will stay at least 2 midnights in hospital due to the above reasons. It is neither reasonable nor safe to care for them in a less acute setting. Quality Stroke Does the patient have a stroke diagnosis?: No VTE Prior VTE?: No VTE Risk Level:: Medical - moderate - high VTE Device Contraindication: N/A - Device Ordered VTE Drug Contraindication: N/A - Med Ordered
[2022-03-09] MEDS: Enoxaparin Sodium 40 MG/0.4 ML SYRINGE SUBCUT (17:12)
[2022-03-09] MEDS: Albuterol/Iprat 2.5/0.5MG 3 ML AMPUL.NEB INHALE (19:27)
--- NOTE | 2022-03-09 20:10 | PC.NURSE ---
audible wheezing remains after receiving updraft treatment. Sitting up on stretcher, speaks in short sentences. Given soft food, tolerated well.
[2022-03-09] MEDS: Cyclobenzaprine HCl 5 MG TABLET PO (20:13)
[2022-03-09] MEDS: Pregabalin 50 MG CAPSULE PO (20:17)
[2022-03-10] VITALS (10 sets, daily range): BP systolic 111–187; BP diastolic 50–83; PULSE 76–106; RESP 12–23; TEMP 36.3–36.9; O2SAT 90–100
[2022-03-10] MEDS: 0.9 % Sodium Chloride Flush 3 ML SYRINGE IVFLUSH ×3 (02:20→17:30)
[2022-03-10] MEDS: Doxycycline Hyclate 100 MG in 0.9 % Sodium Chloride 250 ML 166.67 MG IV (02:20)
--- NOTE | 2022-03-10 06:47 | PC.NURSE ---
pt a&o, denies any increase of respiratory distress. Pt repositioned for comfort. Pt on bedside monitor. Will continue to monitor.
[2022-03-10 07:25] LABS: Hematocrit 38.1 % (37.0-47.0); Hemoglobin 12.6 g/dl (12.0-16.0); Mean Corpuscular HGB Conc 33.1 g/dl (31.0-35.0); Mean Corpuscular Hemoglobin 29.1 pg (27.0-33.0); Mean Platelet Volume 9.5 fL (9.4-12.3); Platelet Count 150 X10*3/uL (160-400); Red Blood Count 4.33 X10*6/uL (4.20-5.50); Red Cell Distribution Width 13.1 % (11.0-16.0); White Blood Count 3.3 X10*3/uL (4.8-10.8)
[2022-03-10 07:53] LABS: Anion Gap 14 (12-20); Blood Urea Nitrogen 18 mg/dL (9-16); Calcium 8.4 mg/dL (8.4-10.2); Carbon Dioxide 22 mmol/L (22-29); Chloride 108 mmol/L (96-108); Estimated Glomerular Filt Rate > 60; Glucose Random 162 mg/dL (60-115); Potassium 3.9 mmol/L (3.3-5.1); Sodium 140 mmol/L (135-145)
[2022-03-10] MEDS: Cyclobenzaprine HCl 5 MG TABLET PO ×2 (09:35→20:13)
[2022-03-10] MEDS: Metoprolol Succinate ER 100 MG TAB.ER.24H PO (09:35)
--- NOTE | 2022-03-10 09:52 | PC.NURSE ---
called to pharmacy for ella
[2022-03-10] MEDS: Albuterol/Iprat 2.5/0.5MG 3 ML AMPUL.NEB INHALE ×3 (10:04→20:28)
[2022-03-10] MEDS: methylPREDNISolone Sod Succ 40 MG/ML VIAL IVPUSH (11:28)
[2022-03-10] MEDS: ondansetron HCL 4 MG/2 ML VIAL IVPUSH (11:28)
--- NOTE | 2022-03-10 11:28 | MHC.CM.PN ---
CM met with Patient at Bedside and addressed IMM with her; Patient was too shaky to sign but form was discussed verbally with Patient and the original has been given to her and a copy has been placed on the chart.Patient is a LTC Resident of [facility] and the goal is for her to return there once medically cleared.
--- NOTE | 2022-03-10 13:39 | HO.PM.IMPN ---
Subjective Subjective Date of Service: 03/10/22 Interval History: Coughing + wheezing On Oxymask 4L Review of Systems Review of Systems: Yes all other systems are reviewed and are negative Physical Exam Vital Signs: Vital Signs: Last Vital Signs Temp 97.9 F 03/10/22 08:07 Pulse 80 03/10/22 10:12 Resp 15 03/10/22 10:12 BP 113/50 L 03/10/22 08:07 Pulse Ox 100 03/10/22 08:07 O2 Del Method 03/10/22 08:07 O2 Flow Rate 5 03/10/22 08:07 Oxygen Flow Rate 4 03/09/22 15:02 BMI result Body Mass Index 32.9 Gen: in mild respiratory distress, awake HEENT: sclera anicteric, moist mucus membranes Neck: supple Lungs: diffuse expiratory wheezes and inspiratory rhonchi Heart: RRR, no m/r/g Abd: soft, non-tender, non-distended Ext: no edema Skin: warm/well-perfused Neuro: alert and oriented x3, multiple contractures Psych: appropriate affect Objective Data Active Medications Acetaminophen (Acetaminophen 325 Mg Tablet) 650 mg PO Q6H PRN PRN Reason: Pain, Mild (Pain Scale 1-3) Albuterol Sulfate (Albuterol Sulfate (0.083%) 2.5 Mg/3 Ml Vial.Neb) 2.5 mg INHALE Q2H PRN PRN Reason: Shortness of Breath/Wheezing Albuterol/Ipratropium (Albuterol/Iprat 2.5/0.5mg 3 Ml Ampul.Neb) 3 ml INHALE RQ4H WHILE AWAKE [facility] Last Admin: 03/10/22 12:13 Dose: Not Given Documented By: LATOYA Non-Admin Reason: udn given at 1004 Atorvastatin Calcium (Atorvastatin Calcium 40 Mg Tablet) 40 mg PO BEDTIME [facility] Cyclobenzaprine HCl (Cyclobenzaprine Hcl 5 Mg Tablet) 5 mg PO BID [facility] Last Admin: 03/10/22 09:35 Dose: 5 mg Documented By: CECIL Enoxaparin Sodium (Enoxaparin Sodium 40 Mg/0.4 Ml Syringe) 40 mg SUBCUT Q24H [facility] Last Admin: 03/09/22 17:12 Dose: 40 mg Documented By: NADIA Ceftriaxone Sodium 1 gm/ (Sodium Chloride) 50 mls @ 100 mls/hr IV Q24H [facility] Doxycycline Hyclate 100 mg/ (Sodium Chloride) 250 mls @ 166.67 mls/hr IV Q12H [facility] Last Infusion: 03/10/22 09:04 Dose: 0 mls/hr Documented By: CECIL Methylprednisolone Sodium Succinate (Methylprednisolone Sod Succ 40 Mg/Ml Vial) 40 mg IVPUSH Q24H [facility] Last Admin: 03/10/22 11:28 Dose: 40 mg Documented By: VIVI Metoprolol Succinate (Metoprolol Succinate Er 100 Mg Tab.Er.24h) 100 mg PO DAILY [facility]; Protocol Last Admin: 03/10/22 09:35 Dose: 100 mg Documented By: CECIL Ondansetron HCl (Ondansetron Hcl 4 Mg/2 Ml Vial) 4 mg IVPUSH Q8H PRN PRN Reason: Nausea and Vomiting Last Admin: 03/10/22 11:28 Dose: 4 mg Documented By: VIVI Pharmacy Consult (Consult Rx Perform Med Rec) 1 each MISCELLANE ONCE PRN PRN Reason: Consult order Pregabalin (Pregabalin 50 Mg Capsule) 50 mg PO BID [facility] Last Admin: 03/10/22 11:16 Dose: Not Given Documented By: VIVI Non-Admin Reason: Med Not Available Sodium Chloride (0.9 % Sodium Chloride Flush 3 Ml Syringe) 3 ml IVFLUSH QSHIFT [facility] Last Admin: 03/10/22 09:35 Dose: 3 ml Documented By: CECIL Labs CBC & Chem 7: 03/10/22 07:09 03/10/22 07:09 Labs: Laboratory Results - last 24 hr 03/09/22 03/09/22 03/09/22 11:28 14:12 14:12 MCV MCH MCHC RDW Plt Count MPV Absolute Nucleated RBC Nucleated RBC % (auto) Anion Gap Estim Creat Clear Calc Estimated GFR Random Glucose Lactic Acid 0.8 Calcium B-Natriuretic Peptide 18 Procalcitonin 0.10 03/10/22 03/10/22 07:09 07:09 MCV 88.0 MCH 29.1 MCHC 33.1 RDW 13.1 Plt Count 150 L MPV 9.5 Absolute Nucleated RBC 0.000 Nucleated RBC % (auto) 0.0 Anion Gap 14 Estim Creat Clear Calc 61.0 Estimated GFR > 60 Random Glucose 162 H Lactic Acid Calcium 8.4 B-Natriuretic Peptide Procalcitonin Assessment and Plan (1) Pneumonia: Status: Acute Assessment and Plan: hospital d#2 76yo F long-term SNF resident with CP, HTN, and HLD presenting with productive cough, dyspnea, and wheezing, found to be septic and hypoxic from pneumonia # sepsis due to pneumonia - d#2 ceftriaxone + doxycycline - follow sputum + blood cultures along with respiratory virus panel and pneumococcal/Legionella urine antigens - IV methlylprednisolone and scheduled + prn bronchodilator nebulizations due to persistent wheezing # acute hypoxic respiratory failure - supplemental O2, wean as tolerated CHRONIC CONDITIONS # HTN: continue metoprolol succinate # HLD: continue statin # chronic pain: continue cyclobenzaprine + pregabalin # VTE prophylaxis: LMWH In my clinical judgment, the patient requires continued hospitalization for the following reasons: IV ABX, hypoxia Quality Stroke Does the patient have a stroke diagnosis?: No VTE Prior VTE?: No VTE Risk Level:: Medical - moderate - high VTE Device Contraindication: N/A - Device Ordered VTE Drug Contraindication: N/A - Med Ordered
[2022-03-10] MEDS: cefTRIAXone sodium 1 GM in 0.9 % Sodium Chloride 50 ML IV (17:30)
[2022-03-10] MEDS: Enoxaparin Sodium 40 MG/0.4 ML SYRINGE SUBCUT (18:51)
[2022-03-10] MEDS: Pregabalin 50 MG CAPSULE PO (20:13)
[2022-03-10] MEDS: amLODIPine Besylate 5 MG TABLET PO (20:14)
[2022-03-10] MEDS: Atorvastatin Calcium 40 MG TABLET PO (20:14)
--- NOTE | 2022-03-10 21:50 | PC.NURSE ---
Reported to Dr Maedra that patient did not tolerate head CT due to Cerebral palsy and twitching. Also notified him of possibility of patient aspirating with meals, gave verbal order for swallow eval.
[2022-03-11] VITALS (10 sets, daily range): BP systolic 101–151; BP diastolic 62–85; PULSE 57–87; RESP 16–20; TEMP 36.3–36.7; O2SAT 92–96
[2022-03-11] MEDS: 0.9 % Sodium Chloride Flush 3 ML SYRINGE IVFLUSH ×4 (01:23→23:54)
[2022-03-11] MEDS: Doxycycline Hyclate 100 MG in 0.9 % Sodium Chloride 250 ML 166.67 MG IV ×2 (02:33→13:46)
[2022-03-11 06:41] LABS: Hematocrit 38.5 % (37.0-47.0); Hemoglobin 12.5 g/dl (12.0-16.0); Mean Corpuscular HGB Conc 32.5 g/dl (31.0-35.0); Mean Corpuscular Hemoglobin 28.8 pg (27.0-33.0); Mean Corpuscular Volume 88.7 fL (80.0-98.0); Mean Platelet Volume 9.5 fL (9.4-12.3); Platelet Count 188 X10*3/uL (160-400); Red Blood Count 4.34 X10*6/uL (4.20-5.50); Red Cell Distribution Width 13.2 % (11.0-16.0); White Blood Count 7.3 X10*3/uL (4.8-10.8)
[2022-03-11 07:23] LABS: Procalcitonin 0.04 ng/mL
[2022-03-11] MEDS: Albuterol/Iprat 2.5/0.5MG 3 ML AMPUL.NEB INHALE ×4 (08:02→20:09)
[2022-03-11] MEDS: ondansetron HCL 4 MG/2 ML VIAL IVPUSH (09:32)
[2022-03-11] MEDS: Metoprolol Succinate ER 100 MG TAB.ER.24H PO (09:36)
[2022-03-11] MEDS: Cyclobenzaprine HCl 5 MG TABLET PO ×2 (09:36→21:13)
[2022-03-11] MEDS: Pregabalin 50 MG CAPSULE PO ×2 (09:36→21:13)
--- NOTE | 2022-03-11 11:45 | MHC.CM.PN ---
Addendum entered by Sarah Li 03/11/22 12:03: correction- PATIENT LIVES ON CAMPUS AT [facility] IN [facility] FOLLOWING IN THE EVENT A REHAB BED IS RECOMMENDED Original Note: REFERRAL PLACED TO [facility] WHERE PATIENT IS REPORTEDLY LTC UPDATES SENT POSSIBLE RETURN TO FACILITY Wednesday03/12/22
--- NOTE | 2022-03-11 13:38 | MHC.SL.SWA ---
Speech Pathologist Impression: Oropharyngeal dysphagia Risk of Aspiration Due to: Neurological Condition History of Pneumonia Dysphasia Diet Status: Downgrade Liquid Consistency and Strategies for Safe Swallow: Liquid Intake Recommendation: Thin Liquid Intake Strategies: Small Sips Solid Food Consistency: Dietary Recommendations: Grnd/Mech Altered (NDD2) Additional Modifications to Solid Foods: Recommend GROUND/MECH ALTERED diet (NDD2) with THIN liquids (straws ok), pills WHOLE in PUREE. D/t involuntary movements of extremities and head, pt requires total 1:1 assistance with tray set up and feeding. Aspiration precautions apply. Diet order in [facility]panse updated by [facility]. Sent [place] Message w/ recommendations to MD, RN, RD. [facility] will continue to follow. Oral Medication Intake: Whole with Puree Please contact the pharmacy regarding appropriate crushable or liquid drug formulations that are available whenever modified delivery is recommended. Compensatory Strategies and Precautions to be Taken for Safe Swallow: Sitting Upright (90 deg) Small Bites and Sips Alternate Liquids/Solids Rate of Ingestion Change Oral Check Avoid Specific Foods Supervision While Eating and Drinking for Safe Swallow: Total Assistance (1:1) Foods to Avoid: Hard, difficult to chew solids Swallowing Recommended Treatments: Compens. Strategy Educat. Recommendation for Speech: Inpatient Speech Therapy Strategy Associate Clinican/Clinical Fellow: No Supervisory Statement: I have reviewed and agree with the student/clinical fellow's documentation: N/A Speech Language Pathologist: Brittni Jovel M.A., [facility]
[2022-03-11] MEDS: methylPREDNISolone Sod Succ 40 MG/ML VIAL IVPUSH (13:46)
--- NOTE | 2022-03-11 14:06 | HO.PM.IMPN ---
Subjective Subjective Date of Service: 03/11/22 Interval History: In feeling better this morning, complaining of nausea, shortness of breath and coughing worse with with activity and talking, no other acute issues overnight. Review of Systems Review of Systems: Yes all other systems are reviewed and are negative Physical Exam Vital Signs: Vital Signs: Last Vital Signs Temp 97.4 F 03/11/22 11:20 Pulse 74 03/11/22 11:25 Resp 16 03/11/22 11:25 BP 104/79 03/11/22 11:20 Pulse Ox 92 03/11/22 11:20 O2 Del Method 03/11/22 11:20 O2 Flow Rate 2 03/11/22 07:41 Oxygen Flow Rate 4 03/09/22 15:02 BMI result Body Mass Index 32.9 Const: Other: Gen: Awake alert, no acute respiratory distress, HEENT: sclera anicteric, moist mucus membranes Neck: supple Lungs: Diminished breath sound with bilateral expiratory wheeze Heart: RRR, no m/r/g Abd: soft, non-tender, non-distended Ext: no edema Skin: warm/well-perfused Neuro: alert and oriented x3, multiple contractures Psych: appropriate affect Objective Data Active Medications Acetaminophen (Acetaminophen 325 Mg Tablet) 650 mg PO Q6H PRN PRN Reason: Pain, Mild (Pain Scale 1-3) Albuterol Sulfate (Albuterol Sulfate (0.083%) 2.5 Mg/3 Ml Vial.Neb) 2.5 mg INHALE Q2H PRN PRN Reason: Shortness of Breath/Wheezing Albuterol/Ipratropium (Albuterol/Iprat 2.5/0.5mg 3 Ml Ampul.Neb) 3 ml INHALE RQ4H WHILE AWAKE [facility] Last Admin: 03/11/22 11:22 Dose: 3 ml Documented By: RIGOBERTO Atorvastatin Calcium (Atorvastatin Calcium 40 Mg Tablet) 40 mg PO BEDTIME [facility] Last Admin: 03/10/22 20:14 Dose: 40 mg Documented By: AISSATOU Cyclobenzaprine HCl (Cyclobenzaprine Hcl 5 Mg Tablet) 5 mg PO BID [facility] Last Admin: 03/11/22 09:36 Dose: 5 mg Documented By: LENORE Enoxaparin Sodium (Enoxaparin Sodium 40 Mg/0.4 Ml Syringe) 40 mg SUBCUT Q24H [facility] Last Admin: 03/10/22 18:51 Dose: 40 mg Documented By: AISSATOU Ceftriaxone Sodium 1 gm/ (Sodium Chloride) 50 mls @ 100 mls/hr IV Q24H [facility] Last Infusion: 03/10/22 19:30 Dose: 0 mls/hr Documented By: AISSATOU Doxycycline Hyclate 100 mg/ (Sodium Chloride) 250 mls @ 166.67 mls/hr IV Q12H [facility] Last Admin: 03/11/22 13:46 Dose: 166.67 mls/hr Documented By: LENORE Methylprednisolone Sodium Succinate (Methylprednisolone Sod Succ 40 Mg/Ml Vial) 40 mg IVPUSH Q24H [facility] Last Admin: 03/11/22 13:46 Dose: 40 mg Documented By: LENORE Metoprolol Succinate (Metoprolol Succinate Er 100 Mg Tab.Er.24h) 100 mg PO DAILY [facility]; Protocol Last Admin: 03/11/22 09:36 Dose: 100 mg Documented By: LENORE Ondansetron HCl (Ondansetron Hcl 4 Mg/2 Ml Vial) 4 mg IVPUSH Q8H PRN PRN Reason: Nausea and Vomiting Last Admin: 03/11/22 09:32 Dose: 4 mg Documented By: LENORE Pharmacy Consult (Consult Rx Perform Med Rec) 1 each MISCELLANE ONCE PRN PRN Reason: Consult order Pregabalin (Pregabalin 50 Mg Capsule) 50 mg PO BID [facility] Last Admin: 03/11/22 09:36 Dose: 50 mg Documented By: LENORE Sodium Chloride (0.9 % Sodium Chloride Flush 3 Ml Syringe) 3 ml IVFLUSH QSHIFT [facility] Last Admin: 03/11/22 09:36 Dose: 3 ml Documented By: LEONRE Labs CBC & Chem 7: 03/11/22 05:36 03/10/22 07:09 Labs: Laboratory Results - last 24 hr 03/11/22 03/11/22 05:36 05:36 MCV 88.7 MCH 28.8 MCHC 32.5 RDW 13.2 Plt Count 188 D MPV 9.5 Absolute Nucleated RBC 0.000 Nucleated RBC % (auto) 0.0 Procalcitonin 0.04 Microbiology Microbiology Results: Microbiology 03/09/22 14:12 Blood Culture - Preliminary Blood - Venous No growth after 24 hours. 03/09/22 14:06 Blood Culture - Preliminary Blood - Venous No growth after 24 hours. Assessment and Plan (1) Pneumonia: Status: Acute Assessment and Plan: hospital d#3 76yo F long-term SNF resident with CP, HTN, and HLD presenting with productive cough, dyspnea, and wheezing, found to be septic and hypoxic from pneumonia # sepsis due to pneumonia - on IV ceftriaxone + doxycycline day 3 - blood cultures negative so far, respiratory virus panel not sent and pneumococcal/Legionella urine antigens pending -continue IV methlylprednisolone and scheduled + prn bronchodilator nebulizations due to persistent wheezing, add scheduled cough medication # acute hypoxic respiratory failure - supplemental O2, wean as tolerated CHRONIC CONDITIONS # HTN: BP stable, continue metoprolol succinate # HLD: continue statin # chronic pain: continue cyclobenzaprine + pregabalin # VTE prophylaxis: LMWH In my clinical judgment, the patient requires continued hospitalization for IV ABX, and hypoxia Quality Stroke Does the patient have a stroke diagnosis?: No VTE Prior VTE?: No VTE Risk Level:: Medical - moderate - high VTE Device Contraindication: N/A - Device Ordered VTE Drug Contraindication: N/A - Med Ordered
[2022-03-11] MEDS: guaiFENesin DM 100/10/5 ML 5 ML SYRUP 10 ML PO ×2 (14:57→21:14)
[2022-03-11] MEDS: cefTRIAXone sodium 1 GM in 0.9 % Sodium Chloride 50 ML IV (16:59)
[2022-03-11] MEDS: Enoxaparin Sodium 40 MG/0.4 ML SYRINGE SUBCUT (16:59)
[2022-03-11] MEDS: Atorvastatin Calcium 40 MG TABLET PO (21:13)
[2022-03-12] VITALS (12 sets, daily range): BP systolic 140–191; BP diastolic 65–86; PULSE 68–89; RESP 17–22; TEMP 36.1–36.7; O2SAT 92–96
[2022-03-12] MEDS: guaiFENesin DM 100/10/5 ML 5 ML SYRUP 10 ML PO ×4 (02:19→19:54)
[2022-03-12] MEDS: Doxycycline Hyclate 100 MG in 0.9 % Sodium Chloride 250 ML 166.67 MG IV ×2 (02:20→14:15)
[2022-03-12] MEDS: Albuterol/Iprat 2.5/0.5MG 3 ML AMPUL.NEB INHALE ×4 (07:39→19:59)
[2022-03-12] MEDS: methylPREDNISolone Sod Succ 40 MG/ML VIAL IVPUSH ×2 (08:58→16:37)
[2022-03-12] MEDS: Pregabalin 50 MG CAPSULE PO ×2 (08:58→19:54)
[2022-03-12] MEDS: Metoprolol Succinate ER 100 MG TAB.ER.24H PO (08:58)
[2022-03-12] MEDS: Cyclobenzaprine HCl 5 MG TABLET PO ×2 (08:59→19:54)
[2022-03-12] MEDS: 0.9 % Sodium Chloride Flush 3 ML SYRINGE IVFLUSH ×3 (09:08→19:57)
--- NOTE | 2022-03-12 12:47 | HO.PM.IMPN ---
Subjective Subjective Date of Service: 03/12/22 Interval History: Complaining of wheezing/shortness of breath, feels better sitting, denies fever, chills, no other acute issues overnight., Review of Systems Review of Systems: Yes all other systems are reviewed and are negative Physical Exam Vital Signs: Vital Signs: Last Vital Signs Temp 97.8 F 03/12/22 11:20 Pulse 82 03/12/22 11:20 Resp 20 03/12/22 11:20 BP 168/80 H 03/12/22 11:20 Pulse Ox 96 03/12/22 11:20 O2 Del Method 03/12/22 11:20 O2 Flow Rate 2 03/12/22 07:37 Oxygen Flow Rate 4 03/09/22 15:02 BMI result Body Mass Index 32.9 Const: Other: Gen:? Awake alert, no acute respiratory distress, able to talk in full sentences HEENT: sclera anicteric, moist mucus membranes Neck: supple Lungs:? Diminished breath sound with bilateral expiratory wheeze Heart: RRR, no m/r/g Abd: soft, non-tender, non-distended Ext: no edema Skin: warm/well-perfused Neuro: alert and oriented x3, multiple contractures Psych: appropriate affect ? Objective Data Active Medications Acetaminophen (Acetaminophen 325 Mg Tablet) 650 mg PO Q6H PRN PRN Reason: Pain, Mild (Pain Scale 1-3) Albuterol Sulfate (Albuterol Sulfate (0.083%) 2.5 Mg/3 Ml Vial.Neb) 2.5 mg INHALE Q2H PRN PRN Reason: Shortness of Breath/Wheezing Albuterol/Ipratropium (Albuterol/Iprat 2.5/0.5mg 3 Ml Ampul.Neb) 3 ml INHALE RQ4H WHILE AWAKE [facility] Last Admin: 03/12/22 11:16 Dose: 3 ml Documented By: RIGOBERTO Atorvastatin Calcium (Atorvastatin Calcium 40 Mg Tablet) 40 mg PO BEDTIME [facility] Last Admin: 03/11/22 21:13 Dose: 40 mg Documented By: HUE Cyclobenzaprine HCl (Cyclobenzaprine Hcl 5 Mg Tablet) 5 mg PO BID [facility] Last Admin: 03/12/22 08:59 Dose: 5 mg Documented By: LENORE Enoxaparin Sodium (Enoxaparin Sodium 40 Mg/0.4 Ml Syringe) 40 mg SUBCUT Q24H [facility] Last Admin: 03/11/22 16:59 Dose: 40 mg Documented By: HUE Guaifenesin/Dextromethorphan (Guaifenesin Dm 100/10/5 Ml 5 Ml Syrup) 10 ml PO Q6H [facility] Last Admin: 03/12/22 08:58 Dose: 10 ml Documented By: LENORE Ceftriaxone Sodium 1 gm/ (Sodium Chloride) 50 mls @ 100 mls/hr IV Q24H [facility] Last Infusion: 03/11/22 17:46 Dose: 0 mls/hr Documented By: HUE Doxycycline Hyclate 100 mg/ (Sodium Chloride) 250 mls @ 166.67 mls/hr IV Q12H [facility] Last Infusion: 03/12/22 03:51 Dose: 0 mls/hr Documented By: BOY Methylprednisolone Sodium Succinate (Methylprednisolone Sod Succ 40 Mg/Ml Vial) 40 mg IVPUSH Q8H [facility] Last Admin: 03/12/22 08:58 Dose: 40 mg Documented By: LENORE Metoprolol Succinate (Metoprolol Succinate Er 100 Mg Tab.Er.24h) 100 mg PO DAILY [facility]; Protocol Last Admin: 03/12/22 08:58 Dose: 100 mg Documented By: LENORE Ondansetron HCl (Ondansetron Hcl 4 Mg/2 Ml Vial) 4 mg IVPUSH Q8H PRN PRN Reason: Nausea and Vomiting Last Admin: 03/11/22 09:32 Dose: 4 mg Documented By: LENORE Pharmacy Consult (Consult Rx Perform Med Rec) 1 each MISCELLANE ONCE PRN PRN Reason: Consult order Pregabalin (Pregabalin 50 Mg Capsule) 50 mg PO BID [facility] Last Admin: 03/12/22 08:58 Dose: 50 mg Documented By: LENORE Sodium Chloride (0.9 % Sodium Chloride Flush 3 Ml Syringe) 3 ml IVFLUSH QSHIFT [facility] Last Admin: 03/12/22 09:08 Dose: 3 ml Documented By: LENORE Labs CBC & Chem 7: 03/11/22 05:36 03/10/22 07:09 Labs: Laboratory Results - last 24 hr 03/11/22 15:34 Respiratory Panel Garcia See note Adenovirus (Rapid PCR) TNP B.pert (TEM-PCR) TNP B.parapertussis DNA PCR TNP C. pneumoniae DNA (PCR) TNP Coronavirus OC43 (PCR) TNP Coronavirus HKU1 (PCR) TNP Coronavirus 229E (PCR) TNP Coronavirus NL63 (PCR) TNP Human Metapneumovir PCR TNP Influenza A (RT-PCR) TNP Influenza B (RT-PCR) TNP M. pneumoniae (PCR) TNP Parainfluenza 1 (PCR) TNP Parainfluenza 2 (PCR) TNP Parainfluenza 3 (PCR) TNP Parainfluenza 4 (PCR) TNP RSV (PCR) TNP Entero/Rhino (PCR) TNP SARS-CoV-2 RNA (RT-PCR) TNP Microbiology Microbiology Results: Microbiology 03/09/22 14:12 Blood Culture - Preliminary Blood - Venous No growth after 48 hours. 03/09/22 14:06 Blood Culture - Preliminary Blood - Venous No growth after 48 hours. Assessment and Plan (1) Pneumonia: Status: Acute Assessment and Plan: hospital d#3 76yo F long-term SNF resident with CP, HTN, and HLD presenting with productive cough, dyspnea, and wheezing, found to be septic and hypoxic from pneumonia # sepsis due to pneumonia - on IV ceftriaxone + doxycycline day 11/27 - blood cultures negative x48h, respiratory virus panel positive for human metapneumovirus, pneumococcal/Legionella urine antigens pending - continue IV methlylprednisolone increase dose to q.8 hours, continue scheduled + prn bronchodilator nebulizations due to persistent wheezing, continue cough medication, add incentive spirometry # acute hypoxic respiratory failure - supplemental O2, wean as tolerated # HTN: BP elevated on metoprolol succinate 100 mg daily home dose, follow blood pressure and adjust medications # HLD: continue statin # chronic pain: continue cyclobenzaprine + pregabalin # VTE prophylaxis: LMWH In my clinical judgment, the patient requires continued hospitalization for IV ABX, and persistent hypoxia Quality Stroke Does the patient have a stroke diagnosis?: No VTE Prior VTE?: No VTE Risk Level:: Medical - moderate - high VTE Device Contraindication: N/A - Device Ordered VTE Drug Contraindication: N/A - Med Ordered
[2022-03-12] MEDS: cefTRIAXone sodium 1 GM in 0.9 % Sodium Chloride 50 ML IV (16:37)
[2022-03-12 16:40] LABS: Adenovirus PCR Not Detected (Not Detect.); Bordetella parapertussis PCR Not Detected (Not Detect.); Bordetella pertussis PCR Not Detected (Not Detect.); Chlamydia pneumoniae PCR Not Detected (Not Detect.); Coronavirus 229E PCR Not Detected (Not Detect.); Coronavirus HKU1 PCR Not Detected (Not Detect.); Coronavirus NL63 PCR Not Detected (Not Detect.); Coronavirus OC43 PCR Not Detected (Not Detect.); Human metapneumovirus PCR Detected (Not Detect.); Influenza A PCR Not Detected (Not Detect.); Influenza B PCR Not Detected (Not Detect.); Mycoplasma pneumoniae PCR Not Detected (Not Detect.); Parainfluenza 1 PCR Not Detected (Not Detect.); Parainfluenza 2 PCR Not Detected (Not Detect.); Parainfluenza 3 PCR Not Detected (Not Detect.); Parainfluenza 4 PCR Not Detected (Not Detect.); RSV PCR Not Detected (Not Detect.); Rhino/Enterovirus PCR Not Detected (Not Detect.); SARS-CoV-2 PCR Not Detected (Not Detect.)
[2022-03-12] MEDS: Enoxaparin Sodium 40 MG/0.4 ML SYRINGE SUBCUT (16:41)
--- NOTE | 2022-03-12 19:03 | MHC.SL.SWA ---
Speech Pathologist Impression: Risk of Aspiration Due to: Neurological Condition History of Pneumonia Dysphasia Diet Status: Continue on diet of Ground/Mechanical/Altered w/ Thin liquids, Pills whole in puree Liquid Consistency and Strategies for Safe Swallow: Liquid Intake Recommendation: Thin Liquid Intake Strategies: Small Sips Solid Food Consistency: Dietary Recommendations: Grnd/Mech Altered (NDD2) Additional Modifications to Solid Foods: Recommend GROUND/MECH ALTERED diet (NDD2) with THIN liquids (straws ok), pills WHOLE in PUREE. D/t involuntary movements of extremities and head, pt requires total 1:1 assistance with tray set up and feeding. Aspiration precautions apply. Oral Medication Intake: Whole with Puree Please contact the pharmacy regarding appropriate crushable or liquid drug formulations that are available whenever modified delivery is recommended. Compensatory Strategies and Precautions to be Taken for Safe Swallow: Sitting Upright (90 deg) Liquids from Cup Liquids from Straw Alternate Liquids/Solids Rate of Ingestion Change Supervision While Eating and Drinking for Safe Swallow: Intermittent Supervision Foods to Avoid: Hard, difficult to chew solids Swallowing Recommended Treatments: Compens. Strategy Educat. Recommendation for Speech: Inpatient Speech Therapy Comment: Pt seen during lunch. Pt was pleasant and cooperative, but commented that she felt awkward being watched. Offered to assist Pt with feeding, as patient has tremor/fasciculation w/CP, but patient declined, accepting assistance only with holding liquid/straw so that she could access. Pt took forkfuls of ground consistencies, producing mild delay of oral phase, timely swallow, no clinical signs of aspiration. Pt stated that she had liked chicken meat loaf last night and this meal of ground pork was also to her liking. Pt took straw sips of liquid, with good labial closure on straw, good bolus management, timely swallow, no clinical signs of aspiration. Patient is tolerating current diet consistencies well. Frequency/Duration: Date Range for Service Req: Timeline to reassess: Academic Tutor Clinican/Clinical Fellow: No Supervisory Statement: I have reviewed and agree with the student/clinical fellow's documentation: N/A Speech Language Pathologist: Laly Castro M.A., CCC-DIRECTOR SYSTEMS
[2022-03-12] MEDS: Atorvastatin Calcium 40 MG TABLET PO (19:54)
[2022-03-13] VITALS (7 sets, daily range): BP systolic 115–149; BP diastolic 59–80; PULSE 67–88; RESP 16–19; TEMP 36.2–36.7; O2SAT 93–97
[2022-03-13] MEDS: guaiFENesin DM 100/10/5 ML 5 ML SYRUP 10 ML PO ×4 (00:49→21:52)
[2022-03-13] MEDS: Doxycycline Hyclate 100 MG in 0.9 % Sodium Chloride 250 ML 166.67 MG IV ×2 (00:49→13:14)
[2022-03-13] MEDS: methylPREDNISolone Sod Succ 40 MG/ML VIAL IVPUSH ×3 (00:49→21:56)
[2022-03-13] MEDS: Albuterol/Iprat 2.5/0.5MG 3 ML AMPUL.NEB INHALE ×4 (08:41→19:49)
--- NOTE | 2022-03-13 12:43 | MHC.SLORD ---
Speech Language Pathology Order Status: RADIUS CORNER MACHINE OPERATOR attempted to see pt for PO trials this morning- Pt unavailable, on commode waiting for assistance from RN. Pt currently on ground/[facility] altered (NDD2) diet with THIN liquids- appropriate.
[2022-03-13] MEDS: ondansetron HCL 4 MG/2 ML VIAL IVPUSH (13:09)
[2022-03-13] MEDS: Cyclobenzaprine HCl 5 MG TABLET PO ×2 (13:13→21:54)
[2022-03-13] MEDS: 0.9 % Sodium Chloride Flush 3 ML SYRINGE IVFLUSH ×3 (13:13→22:24)
[2022-03-13] MEDS: Pregabalin 50 MG CAPSULE PO ×2 (13:13→21:54)
[2022-03-13] MEDS: Metoprolol Succinate ER 100 MG TAB.ER.24H PO (13:13)
--- NOTE | 2022-03-13 13:43 | HO.PM.IMPN ---
Subjective Subjective Date of Service: 03/13/22 Interval History: feeling little better this morning, less cough and shortness of breath, denies fever chills no other acute issues overnight, stable oxygenation on 2 L, denies nausea vomiting tolerating diet Review of Systems Review of Systems: Yes all other systems are reviewed and are negative Physical Exam Vital Signs: Vital Signs: Last Vital Signs Temp 98.1 F 03/13/22 11:50 Pulse 75 03/13/22 12:26 Resp 18 03/13/22 12:26 BP 149/70 H 03/13/22 03:32 Pulse Ox 93 03/13/22 11:50 O2 Del Method 03/13/22 11:50 O2 Flow Rate 2 03/13/22 03:32 Oxygen Flow Rate 4 03/09/22 15:02 BMI result Body Mass Index 32.9 Const: Other: Gen:? Awake alert, no acute respiratory distress, able to talk in full sentences HEENT: sclera anicteric, moist mucus membranes Neck: supple Lungs:? Diminished breath sound with bilateral expiratory wheeze Heart: RRR, no m/r/g Abd: soft, non-tender, non-distended Ext: no edema Skin: warm/well-perfused Neuro: alert and oriented x3, multiple contractures Psych: appropriate affect ? Objective Data Active Medications Acetaminophen (Acetaminophen 325 Mg Tablet) 650 mg PO Q6H PRN PRN Reason: Pain, Mild (Pain Scale 1-3) Albuterol Sulfate (Albuterol Sulfate (0.083%) 2.5 Mg/3 Ml Vial.Neb) 2.5 mg INHALE Q2H PRN PRN Reason: Shortness of Breath/Wheezing Albuterol/Ipratropium (Albuterol/Iprat 2.5/0.5mg 3 Ml Ampul.Neb) 3 ml INHALE RQ4H WHILE AWAKE [facility] Last Admin: 03/13/22 12:24 Dose: 3 ml Documented By: EVERARDO Atorvastatin Calcium (Atorvastatin Calcium 40 Mg Tablet) 40 mg PO BEDTIME [facility] Last Admin: 03/12/22 19:54 Dose: 40 mg Documented By: ASMITA Cyclobenzaprine HCl (Cyclobenzaprine Hcl 5 Mg Tablet) 5 mg PO BID [facility] Last Admin: 03/13/22 13:13 Dose: 5 mg Documented By: LENORE Enoxaparin Sodium (Enoxaparin Sodium 40 Mg/0.4 Ml Syringe) 40 mg SUBCUT Q24H [facility] Last Admin: 03/12/22 16:41 Dose: 40 mg Documented By: RUFINO Guaifenesin/Dextromethorphan (Guaifenesin Dm 100/10/5 Ml 5 Ml Syrup) 10 ml PO Q6H [facility] Last Admin: 03/13/22 13:13 Dose: 10 ml Documented By: LENORE Ceftriaxone Sodium 1 gm/ (Sodium Chloride) 50 mls @ 100 mls/hr IV Q24H [facility] Last Infusion: 03/12/22 18:19 Dose: 0 mls/hr Documented By: RUFINO Doxycycline Hyclate 100 mg/ (Sodium Chloride) 250 mls @ 166.67 mls/hr IV Q12H [facility] Last Admin: 03/13/22 13:14 Dose: 166.67 mls/hr Documented By: LENORE Methylprednisolone Sodium Succinate (Methylprednisolone Sod Succ 40 Mg/Ml Vial) 40 mg IVPUSH Q8H [facility] Last Admin: 03/13/22 13:11 Dose: 40 mg Documented By: LENORE Metoprolol Succinate (Metoprolol Succinate Er 100 Mg Tab.Er.24h) 100 mg PO DAILY [facility]; Protocol Last Admin: 03/13/22 13:13 Dose: 100 mg Documented By: LENORE Ondansetron HCl (Ondansetron Hcl 4 Mg/2 Ml Vial) 4 mg IVPUSH Q8H PRN PRN Reason: Nausea and Vomiting Last Admin: 03/13/22 13:09 Dose: 4 mg Documented By: LENORE Pharmacy Consult (Consult Rx Perform Med Rec) 1 each MISCELLANE ONCE PRN PRN Reason: Consult order Pregabalin (Pregabalin 50 Mg Capsule) 50 mg PO BID [facility] Last Admin: 03/13/22 13:13 Dose: 50 mg Documented By: LENORE Sodium Chloride (0.9 % Sodium Chloride Flush 3 Ml Syringe) 3 ml IVFLUSH QSHIFT [facility] Last Admin: 03/13/22 13:13 Dose: 3 ml Documented By: LENORE Labs CBC & Chem 7: 03/11/22 05:36 03/10/22 07:09 Labs: Laboratory Results - last 24 hr 03/12/22 14:23 Respiratory Panel Garcia See Note Adenovirus (Rapid PCR) Not Detected B.pert (TEM-PCR) Not Detected B.parapertussis DNA PCR Not Detected C. pneumoniae DNA (PCR) Not Detected Coronavirus OC43 (PCR) Not Detected Coronavirus HKU1 (PCR) Not Detected Coronavirus 229E (PCR) Not Detected Coronavirus NL63 (PCR) Not Detected Human Metapneumovir PCR Detected A Influenza A (RT-PCR) Not Detected Influenza B (RT-PCR) Not Detected M. pneumoniae (PCR) Not Detected Parainfluenza 1 (PCR) Not Detected Parainfluenza 2 (PCR) Not Detected Parainfluenza 3 (PCR) Not Detected Parainfluenza 4 (PCR) Not Detected RSV (PCR) Not Detected Entero/Rhino (PCR) Not Detected SARS-CoV-2 RNA (RT-PCR) Not Detected Assessment and Plan (1) Pneumonia: Status: Acute Assessment and Plan: hospital d#3 76yo F long-term SNF resident with CP, HTN, and HLD presenting with productive cough, dyspnea, and wheezing, found to be septic and hypoxic from pneumonia # sepsis due to pneumonia Slowly improving - on IV ceftriaxone + doxycycline day 12/27, will switch to by mouth doxycycline - blood cultures negative x48h, respiratory virus panel positive for human metapneumovirus, pneumococcal/Legionella urine antigens pending - continue IV methlylprednisolone q.8 hours, continue scheduled + prn bronchodilator nebulizations due to persistent wheezing, continue cough medication, encourage incentive spirometry Will gradually wean steroids recommend out of bed to chair id # acute hypoxic respiratory failure - supplemental O2, wean as tolerated, not on home oxygen # HTN: BP elevated on metoprolol succinate 100 mg daily home dose, follow blood pressure and adjust medications # HLD: continue statin # chronic pain: continue cyclobenzaprine + pregabalin # VTE prophylaxis: LMWH In my clinical judgment, the patient requires continued hospitalization for IV ABX, and persistent hypoxia Quality Stroke Does the patient have a stroke diagnosis?: No VTE Prior VTE?: No VTE Risk Level:: Medical - moderate - high VTE Device Contraindication: N/A - Device Ordered VTE Drug Contraindication: N/A - Med Ordered
[2022-03-13] MEDS: cefTRIAXone sodium 1 GM in 0.9 % Sodium Chloride 50 ML IV (16:19)
[2022-03-13] MEDS: Enoxaparin Sodium 40 MG/0.4 ML SYRINGE SUBCUT (16:19)
[2022-03-13] MEDS: Atorvastatin Calcium 40 MG TABLET PO (21:55)
[2022-03-14] VITALS (10 sets, daily range): BP systolic 140–160; BP diastolic 72–93; PULSE 58–85; RESP 14–20; TEMP 36.2–37.3; O2SAT 93–98
[2022-03-14] MEDS: guaiFENesin DM 100/10/5 ML 5 ML SYRUP 10 ML PO ×4 (02:00→21:23)
[2022-03-14] MEDS: methylPREDNISolone Sod Succ 40 MG/ML VIAL IVPUSH ×2 (04:41→17:04)
[2022-03-14] MEDS: Albuterol/Iprat 2.5/0.5MG 3 ML AMPUL.NEB INHALE ×4 (09:39→19:38)
[2022-03-14] MEDS: Cyclobenzaprine HCl 5 MG TABLET PO ×2 (09:50→21:25)
[2022-03-14] MEDS: Pregabalin 50 MG CAPSULE PO ×2 (09:50→21:27)
[2022-03-14] MEDS: Metoprolol Succinate ER 100 MG TAB.ER.24H PO (09:50)
[2022-03-14] MEDS: 0.9 % Sodium Chloride Flush 3 ML SYRINGE IVFLUSH ×2 (09:50→17:04)
--- NOTE | 2022-03-14 12:56 | HO.PM.IMPN ---
Subjective Subjective Date of Service: 03/14/22 Interval History: Feeling better this morning less shortness of breath, less cough, denies fever, no chills no other acute issues overnight, denies nausea, vomiting , diarrhea tolerating diet. Review of Systems Review of Systems: Yes all other systems are reviewed and are negative Physical Exam Vital Signs: Vital Signs: Last Vital Signs Temp 97.5 F 03/14/22 08:45 Pulse 58 03/14/22 12:08 Resp 20 03/14/22 12:08 BP 152/93 H 03/14/22 08:45 Pulse Ox 97 03/14/22 08:45 O2 Del Method 03/14/22 08:45 O2 Flow Rate 3 03/14/22 08:45 Oxygen Flow Rate 4 03/09/22 15:02 BMI result Body Mass Index 32.9 Const: Other: Gen:? Awake alert, no acute respiratory distress, able to talk in full sentences HEENT: sclera anicteric, moist mucus membranes Neck: supple Lungs:? Good air entry, scattered expiratory wheeze, no crackles, no use of accessory muscles Heart: RRR, no m/r/g Abd: soft, non-tender, non-distended Ext: no edema Skin: warm/well-perfused Neuro: alert and oriented x3, multiple contractures Psych: appropriate affect Objective Data Active Medications Acetaminophen (Acetaminophen 325 Mg Tablet) 650 mg PO Q6H PRN PRN Reason: Pain, Mild (Pain Scale 1-3) Albuterol Sulfate (Albuterol Sulfate (0.083%) 2.5 Mg/3 Ml Vial.Neb) 2.5 mg INHALE Q2H PRN PRN Reason: Shortness of Breath/Wheezing Albuterol/Ipratropium (Albuterol/Iprat 2.5/0.5mg 3 Ml Ampul.Neb) 3 ml INHALE RQ4H WHILE AWAKE [facility] Last Admin: 03/14/22 12:05 Dose: 3 ml Documented By: TOYA Atorvastatin Calcium (Atorvastatin Calcium 40 Mg Tablet) 40 mg PO BEDTIME [facility] Last Admin: 03/13/22 21:55 Dose: 40 mg Documented By: ADAMRINShahid Cyclobenzaprine HCl (Cyclobenzaprine Hcl 5 Mg Tablet) 5 mg PO BID [facility] Last Admin: 03/14/22 09:50 Dose: 5 mg Documented By: MANJU Doxycycline Hyclate (Doxycycline Hyclate 100 Mg Tablet) 100 mg PO Q12H [facility] Last Admin: 03/14/22 09:51 Dose: 100 mg Documented By: MANJU Enoxaparin Sodium (Enoxaparin Sodium 40 Mg/0.4 Ml Syringe) 40 mg SUBCUT Q24H [facility] Last Admin: 03/13/22 16:19 Dose: 40 mg Documented By: LENORE Guaifenesin/Dextromethorphan (Guaifenesin Dm 100/10/5 Ml 5 Ml Syrup) 10 ml PO Q6H [facility] Last Admin: 03/14/22 09:50 Dose: 10 ml Documented By: MANJU Ceftriaxone Sodium 1 gm/ (Sodium Chloride) 50 mls @ 100 mls/hr IV Q24H [facility] Last Infusion: 03/13/22 17:29 Dose: 0 mls/hr Documented By: UDAY-SOFFA Methylprednisolone Sodium Succinate (Methylprednisolone Sod Succ 40 Mg/Ml Vial) 40 mg IVPUSH Q8H [facility] Last Admin: 03/14/22 04:41 Dose: 40 mg Documented By: MORRINL Metoprolol Succinate (Metoprolol Succinate Er 100 Mg Tab.Er.24h) 100 mg PO DAILY [facility]; Protocol Last Admin: 03/14/22 09:50 Dose: 100 mg Documented By: MANJU Ondansetron HCl (Ondansetron Hcl 4 Mg/2 Ml Vial) 4 mg IVPUSH Q8H PRN PRN Reason: Nausea and Vomiting Last Admin: 03/13/22 13:09 Dose: 4 mg Documented By: LENORE Pharmacy Consult (Consult Rx Perform Med Rec) 1 each MISCELLANE ONCE PRN PRN Reason: Consult order Pregabalin (Pregabalin 50 Mg Capsule) 50 mg PO BID [facility] Last Admin: 03/14/22 09:50 Dose: 50 mg Documented By: MANJU Sodium Chloride (0.9 % Sodium Chloride Flush 3 Ml Syringe) 3 ml IVFLUSH QSHIFT [facility] Last Admin: 03/14/22 09:50 Dose: 3 ml Documented By: MANJU Labs CBC & Chem 7: 03/11/22 05:36 03/10/22 07:09 Assessment and Plan (1) Pneumonia: Status: Acute Assessment and Plan: hospital d#3 76yo F long-term SNF resident with CP, HTN, and HLD presenting with productive cough, dyspnea, and wheezing, found to be septic and hypoxic from pneumonia # sepsis due to pneumonia Slowly improving with less shortness of breath - on IV ceftriaxone +po doxycycline day 6/, will change antibiotic to by mouth - blood cultures negative x48h, respiratory virus panel positive for human metapneumovirus, pneumococcal/Legionella urine antigens pending - will wean IV methlylprednisolone 40mg q.8 hours, continue scheduled + prn bronchodilator nebulizations , continue cough medication, encourage incentive spirometry recommend out of bed to chair /recommend ambulation # acute hypoxic respiratory failure - on 2L supplemental O2, wean as tolerated, not on home oxygen # HTN: on metoprolol succinate 100 mg daily home dose, follow blood pressure # HLD: continue statin # chronic pain: continue cyclobenzaprine + pregabalin # VTE prophylaxis: LMWH In my clinical judgment, the patient requires continued hospitalization for IV ABX, and persistent hypoxia. Quality Stroke Does the patient have a stroke diagnosis?: No VTE Prior VTE?: No VTE Risk Level:: Medical - moderate - high VTE Device Contraindication: N/A - Device Ordered VTE Drug Contraindication: N/A - Med Ordered
[2022-03-14] MEDS: Enoxaparin Sodium 40 MG/0.4 ML SYRINGE SUBCUT (17:04)
[2022-03-14] MEDS: Atorvastatin Calcium 40 MG TABLET PO (21:27)
[2022-03-14 22:37] LABS: Strep Pneumo Ag urine Not Detected (Not Detected)
[2022-03-15] MEDS: 0.9 % Sodium Chloride Flush 3 ML SYRINGE IVFLUSH ×4 (01:14→19:54)
[2022-03-15] MEDS: guaiFENesin DM 100/10/5 ML 5 ML SYRUP 10 ML PO ×4 (01:14→19:54)
[2022-03-15 04:00] VITALS: BP 138/72; PULSE 73; RESP 18; TEMP 36.1; O2SAT 99
[2022-03-15] MEDS: methylPREDNISolone Sod Succ 40 MG/ML VIAL IVPUSH (05:01)
[2022-03-15 08:00] VITALS: BP 139/86; PULSE 76; RESP 14; TEMP 36; O2SAT 98
[2022-03-15 08:38] VITALS: PULSE 76; RESP 16; O2SAT 98
[2022-03-15] MEDS: Albuterol/Iprat 2.5/0.5MG 3 ML AMPUL.NEB INHALE ×2 (08:38→15:56)
--- NOTE | 2022-03-15 09:49 | MHC.CM.PN ---
Addendum entered by Sarah Li 03/15/22 09:59: PATIENT'S [facility] CARDIOVASCULAR PHYSICIAN ASSISTANT IS SADIE SELBY Original Note: PATIENT REFUSES REHAB PLACEMENT SHE WANTS TO GO HOME BUT IS UNABLE TO CONTACT HER HOME HEALTH AIDE/DEPUTY SHERIFF GENERALIST/BAILIFF (THROUGH [facility]) T/W EXPERIENCING DIFFICULTY FINDING [facility] IN [place]. CALL TO BE MADE TO HER CARDIOVASCULAR PHYSICIAN ASSISTANT TOMORROW TO RE-SECURE HER SERVICES. PATIENT WILL NEED BLS HOME. IMM 03/15 IN CHART
--- NOTE | 2022-03-15 10:02 | HO.PM.IMPN ---
Subjective Subjective Date of Service: 03/15/22 Interval History: Feeling better this morning, no acute overnight events, no fevers no chills no worsening shortness of breath, shortness of breath and cough has improved, tolerating diet. Review of Systems Review of Systems: Yes all other systems are reviewed and are negative Physical Exam Vital Signs: Vital Signs: Last Vital Signs Temp 96.8 F 03/15/22 08:00 Pulse 76 03/15/22 08:38 Resp 16 03/15/22 08:38 BP 139/86 03/15/22 08:00 Pulse Ox 98 03/15/22 08:00 O2 Del Method 03/15/22 08:00 O2 Flow Rate 3.0 03/15/22 08:00 Oxygen Flow Rate 4 03/09/22 15:02 BMI result Body Mass Index 32.9 Const: Other: Gen:? Awake alert, no acute respiratory distress, able to talk in full sentences HEENT: sclera anicteric, moist mucus membranes Neck: supple Lungs:? Good air entry, few scattered expiratory wheeze, no crackles, no use of accessory muscles Heart: RRR, no m/r/g Abd: soft, non-tender, non-distended Ext: no edema Skin: warm/well-perfused Neuro: alert and oriented x3, multiple contractures Psych: appropriate affect Objective Data Active Medications Acetaminophen (Acetaminophen 325 Mg Tablet) 650 mg PO Q6H PRN PRN Reason: Pain, Mild (Pain Scale 1-3) Albuterol Sulfate (Albuterol Sulfate (0.083%) 2.5 Mg/3 Ml Vial.Neb) 2.5 mg INHALE Q2H PRN PRN Reason: Shortness of Breath/Wheezing Albuterol/Ipratropium (Albuterol/Iprat 2.5/0.5mg 3 Ml Ampul.Neb) 3 ml INHALE RQ4H WHILE AWAKE XIAO Last Admin: 03/15/22 08:38 Dose: 3 ml Documented By: EVERARDO Atorvastatin Calcium (Atorvastatin Calcium 40 Mg Tablet) 40 mg PO BEDTIME [facility] Last Admin: 03/14/22 21:27 Dose: 40 mg Documented By: АННА Cefuroxime Axetil (Cefuroxime Axetil 500 Mg Tablet) 500 mg PO Q12H [facility] Last Admin: 03/15/22 01:14 Dose: 500 mg Documented By: АННА Cyclobenzaprine HCl (Cyclobenzaprine Hcl 5 Mg Tablet) 5 mg PO BID [facility] Last Admin: 03/14/22 21:25 Dose: 5 mg Documented By: АННА Doxycycline Hyclate (Doxycycline Hyclate 100 Mg Tablet) 100 mg PO Q12H [facility] Last Admin: 03/14/22 21:26 Dose: 100 mg Documented By: АННА Enoxaparin Sodium (Enoxaparin Sodium 40 Mg/0.4 Ml Syringe) 40 mg SUBCUT Q24H [facility] Last Admin: 03/14/22 17:04 Dose: 40 mg Documented By: MANJU Guaifenesin/Dextromethorphan (Guaifenesin Dm 100/10/5 Ml 5 Ml Syrup) 10 ml PO Q6H [facility] Last Admin: 03/15/22 01:14 Dose: 10 ml Documented By: АННА Metoprolol Succinate (Metoprolol Succinate Er 100 Mg Tab.Er.24h) 100 mg PO DAILY [facility]; Protocol Last Admin: 03/14/22 09:50 Dose: 100 mg Documented By: MANJU Ondansetron HCl (Ondansetron Hcl 4 Mg/2 Ml Vial) 4 mg IVPUSH Q8H PRN PRN Reason: Nausea and Vomiting Last Admin: 03/13/22 13:09 Dose: 4 mg Documented By: LENORE Pharmacy Consult (Consult Rx Perform Med Rec) 1 each MISCELLANE ONCE PRN PRN Reason: Consult order Prednisone (Prednisone 10 Mg Tablet) 30 mg PO DAILY [facility] Pregabalin (Pregabalin 50 Mg Capsule) 50 mg PO BID [facility] Last Admin: 03/14/22 21:27 Dose: 50 mg Documented By: АННА Sodium Chloride (0.9 % Sodium Chloride Flush 3 Ml Syringe) 3 ml IVFLUSH QSHIFT [facility] Last Admin: 03/15/22 01:14 Dose: 3 ml Documented By: АННА Labs CBC & Chem 7: 03/11/22 05:36 03/10/22 07:09 Labs: Laboratory Results - last 24 hr 03/10/22 12:19 Ur Strep pneumoniae Ag Not Detected Microbiology Microbiology Results: Microbiology 03/09/22 14:12 Blood Culture - Final Blood - Venous No growth after 5 days. 03/09/22 14:06 Blood Culture - Final Blood - Venous No growth after 5 days. Assessment and Plan (1) Pneumonia: Status: Acute Assessment and Plan: hospital d#3 76yo F long-term SNF resident with CP, HTN, and HLD presenting with productive cough, dyspnea, and wheezing, found to be septic and hypoxic from pneumonia # sepsis due to pneumonia Improved significantly, less shortness of breath cough - on by mouth ceftin +po doxycycline day 02/26, - blood cultures negative x48h, respiratory virus panel positive for human metapneumovirus, pneumococcal antigen negative/Legionella urine antigens pending - will dc IV methlylprednisolone and change to by mouth prednisone, continue scheduled + prn bronchodilator nebulizations , continue cough medication, encourage incentive spirometry recommend out of bed to chair Patient lives in independent living use wheelchair for longer duration otherwise ambulate holding on to furniture, refusing to go to rehab # acute hypoxic respiratory failure - DC oxygen, follow finger oximetry, not on home oxygen # HTN: on metoprolol succinate 100 mg daily home dose, follow blood pressure # HLD: continue statin # chronic pain: continue cyclobenzaprine + pregabalin # VTE prophylaxis: LMWH In my clinical judgment, the patient requires continued hospitalization due to hypoxia, pneumonia, viral syndrome, generalized weakness being weaned of Oxygen and to arrange for safe discharge with VNA and hot saw operator services patient declined rehab. Quality Stroke Does the patient have a stroke diagnosis?: No VTE Prior VTE?: No VTE Risk Level:: Medical - moderate - high VTE Device Contraindication: N/A - Device Ordered VTE Drug Contraindication: N/A - Med Ordered
[2022-03-15] MEDS: Pregabalin 50 MG CAPSULE PO ×2 (10:09→19:54)
[2022-03-15] MEDS: Metoprolol Succinate ER 100 MG TAB.ER.24H PO (10:09)
[2022-03-15] MEDS: Cyclobenzaprine HCl 5 MG TABLET PO ×2 (10:09→19:54)
[2022-03-15 11:40] VITALS: BP 132/80; PULSE 59; RESP 16; TEMP 36.2; O2SAT 96
[2022-03-15 15:14] VITALS: BP 150/40; PULSE 67; RESP 16; TEMP 36.2; O2SAT 95
[2022-03-15 15:57] VITALS: PULSE 67; RESP 16; O2SAT 97
[2022-03-15] MEDS: Enoxaparin Sodium 40 MG/0.4 ML SYRINGE SUBCUT (16:13)
[2022-03-15] MEDS: Atorvastatin Calcium 40 MG TABLET PO (19:54)
[2022-03-16] VITALS: BP 150/80; PULSE 62; RESP 20; TEMP 36.2; O2SAT 92
[2022-03-16 04:00] VITALS: BP 124/81; PULSE 65; RESP 17; TEMP 36.4; O2SAT 93
[2022-03-16 08:00] VITALS: BP 144/74; PULSE 59; RESP 15; TEMP 36.4; O2SAT 94
[2022-03-16] MEDS: Metoprolol Succinate ER 100 MG TAB.ER.24H PO (09:29)
[2022-03-16] MEDS: Pregabalin 50 MG CAPSULE PO (09:29)
[2022-03-16] MEDS: guaiFENesin DM 100/10/5 ML 5 ML SYRUP 10 ML PO (09:29)
[2022-03-16] MEDS: predniSONE 10 MG TABLET 30 MG PO (09:30)
[2022-03-16] MEDS: 0.9 % Sodium Chloride Flush 3 ML SYRINGE IVFLUSH (09:30)
[2022-03-16] MEDS: Cyclobenzaprine HCl 5 MG TABLET PO (09:30)
--- NOTE | 2022-03-16 10:24 | PM.DS ---
DS: Providers Provider Date of Service: 03/16/22 Date of admission: 03/09/22 16:39 Primary care physician: Patrick Barron MD DS: Diagnosis Discharge Diagnosis (1) Pneumonia: Status: Acute DS: Summary Hospital Course Hospital Course: Chief Complaint: cough, dyspnea, wheeze 76yo F with cerebral palsy, HTN, and HLD who has lived at [facility] for the past 5 years.? She is wheelchair-dependent.? She presents with a 3-day history of worsening cough productive of thick sputum, dyspnea, and wheezing.? She does not smoke and has no history of asthma or COPD.? No fever, chills, headache, or chills.? She does endorse tinnitus and ear pressure.? No sore throat.? No nausea or vomitin In the ED, she was found to be tachycardic at 111-124 and tachypneic at 24.? She was hypoxic, requiring 4L O2 via nasal cannula to maintain normal SaO2.? She had extensive inspiratory and expiratory wheezes and was given 125 mg of IV methylprednisolone as well as 10 mg of nebulized albuterol. Hospital course: 76yo F long-term SNF resident with CP, HTN, and HLD presenting with productive cough, dyspnea, and wheezing, found to be septic and hypoxic from pneumonia # patient admitted with diagnosis of sepsis due to pneumonia patient treated with IV ceftriaxone and doxycycline, blood cultures came back negative times 48 hours, respiratory viral panel showed human metapneumovirus, Pneumococcal antigen came back negative, Legionella urine antigen remains pending, patient was also treated with IV steroids scheduled and as needed bronchodilators and cough medication patient symptoms of shortness of breath cough and wheezing significantly improved patient oxygenation is stable on room air she finish 7 day course of antibiotics, she is now being discharged home on as needed cough medication 3 more days of steroids Due to hyper reactive airways, she is recommended to continue all other home medications as before patient was recommended to go to rehab but she is adamant she is going to go back to independent living will arrange for VNA services. ? # Acute hypoxic respiratory failure resolved was due to pneumonia # HLD: continue statin # Chronic pain: continue cyclobenzaprine + pregabalin Time Spent with Patient Time attestation: Total time spent providing and/or coordinating discharge services: Discharge coordination time: Greater than 30 minutes Quality: Safe Use of Opioids Does Pt have an Active Cancer Diagnosis on the Problem List?: No Quality: Stroke Does the patient have a stroke diagnosis?: No Physical Exam Vital Signs: Vital Signs: Last Vital Signs Temp 97.5 F 03/16/22 08:00 Pulse 59 03/16/22 08:00 Resp 15 03/16/22 08:00 BP 144/74 H 03/16/22 08:00 Pulse Ox 94 03/16/22 08:00 O2 Del Method 03/16/22 08:00 O2 Flow Rate 3.0 03/15/22 08:00 Oxygen Flow Rate 4 03/09/22 15:02 BMI result Body Mass Index 32.9 Const: Other: Gen:? Awake alert, no acute respiratory distress, able to talk in full sentences HEENT: sclera anicteric, moist mucus membranes Neck: supple Lungs:? Good air entry, no wheeze, no crackles, no use of accessory muscles Heart: RRR, no m/r/g Abd: soft, non-tender, non-distended Ext: no edema Skin: warm/well-perfused Neuro: alert and oriented x3, multiple contractures Psych: appropriate affect Discharge Plan Discharge Patient Disposition: Home Health Service Discharge Diagnosis: Sepsis due to pneumonia Acute hypoxic respiratory failure Hypertension Chronic pain Referrals: Patrick Barron MD [Primary Care Provider] - 1 Week Discharge Medications: New dextromethorphan-guaifenesin 10-100 mg/5 mL Syrup 10 ml PO Q6H PRN (Reason: cough) Qty: 237 0RF prednisone 20 mg tablet 20 mg PO DAILY Qty: 3 0RF Continued metoprolol succinate 100 mg tablet extended release 24 hr 1 tab PO DAILY simvastatin 80 mg tablet 1 tab PO DAILY cyclobenzaprine 5 mg tablet 1 tab PO BID pregabalin 50 mg capsule 1 cap PO BID Discharge Orders: Discharge Order (Routine); Ordered 03/16/22 Ordered By: Fifi Ness Diet: Low fat, low cholesterol Activity on Discharge: As tolerated Stand Alone Forms: Patient Portal Discharge page Care Plan Goals: Take as needed cough syrup, take prednisone 20 mg 1 tablet daily with food for 3 more days, you finished course of antibiotics Health Concerns: Continue all home medication Plan of Treatment: Outpatient follow-up with primary care physician 1 week. Assessment: As per discharge summary
--- NOTE | 2022-03-16 11:39 | W.MHC.F2F ---
Service Date Service Date: 03/16/22 Encounter Date of encounter: 03/16/22 Reasons for Services Signs and symptoms assessed: Shortness of breath, cough, chronic pain Reason for retirement: medication management and teach disease management Homebound: Leaving the home is medically contraindicated at this time without the asist of a device and/or another person due th the listed conditions above and below. Reason homebound: weakness related to hospital stay Certification: Based on the above findings, I certify that this patient is confined to the home and needs intermittent retirement care, physical therapy and/or speech therapy, or continues to need occupational therapy. The patient is under my care, and I have initiated the establishment of the plan of care. The patient will be followed by a physician who will periodically review the plan of care.
--- NOTE | 2022-03-16 11:39 | MHC.CM.PN ---
PATIENT RETURNING HOME TODAY WITH RESUMPTION OF HER HOME HEALTH AIDE SERVICES (THROUGH [facility]). CALL TO [facility] ) DIRECTOR COMMUNITY HEALTH NURSING SADIE SELBY [phone]. SADIE IS NOT AVAILABLE TODAY SO HER COVERING DIRECTOR COMMUNITY HEALTH NURSING GIOVANNY WILL INFORM [facility] AIDE [facility]. SHE WILL ALSO RETURN HOME WITH [facility]. PATIENT AWARE AND IN AGREEMENT ACTION BLS TRANSPORT REQUESTED FOR 1600 TODAY IMM 03/15 IN CHART
[2022-03-16] MEDS: Albuterol/Iprat 2.5/0.5MG 3 ML AMPUL.NEB INHALE (11:45)
--- NOTE | 2022-03-16 11:45 | MHC.SLORD ---
Speech Language Pathology Order Status: Pt on [facility] altered solids (NDD2) with thin liquids. Per chart review, pt tolerating diet; plan for d/c w/ VNA + POCKET SETTER LOCKSTITCH, pt declined rehab. PHERESIS NURSE will continue to follow.
[2022-03-16 11:47] VITALS: BP 144/84; PULSE 62; RESP 17; TEMP 36.3; O2SAT 92
[2022-03-16 11:48] VITALS: PULSE 60; RESP 17; O2SAT 94
--- NOTE | 2022-03-16 11:48 | MHC.SLORD ---
Speech Language Pathology Order Status: Pt on [facility] altered solids (NDD2) with thin liquids. Per chart review, pt tolerating diet; plan for d/c w/ VNA + COOK HELPER JUICE, pt declined rehab.
[2022-03-18 04:57] LABS: Legionella Ag Urine Not Detected (Not Detected)
== END 2022-03-16 16:38 | disposition home health service (06) | DRG 871 ==
LOC: HO.ED 15:28 → HO.EDOVER 17:10 → HO.S3 03-10 13:12
PROVIDERS: Admitting Provider Family Medicine; Emergency Provider Student in an Organized Health Care Education/Training Program; PCP Internal Medicine; Visit Provider Hospitalist
DX: A41.9 Sepsis, unspecified organism (principal); J18.9 Pneumonia, unspecified organism; J96.01 Acute respiratory failure with hypoxia; B97.81 Human metapneumovirus as the cause of diseases classified elsewhere; Z66 Do not resuscitate; G80.9 Cerebral palsy, unspecified; E78.5 Hyperlipidemia, unspecified; I10 Essential (primary) hypertension; G89.29 Other chronic pain; Z99.3 Dependence on wheelchair; Z79.52 Long term (current) use of systemic steroids; Z79.899 Other long term (current) drug therapy
CPT/HCPCS: 36415; 70450; 71045; 71250; 80048; 80053; 83605; 83880; 84145; 85027; 87040; 87449; 87633; 87635; 87899; 92526; 92610; 94640; 94644; 94664; 96361; 96374; 96375; 99285; J0696; J1650; J2405; J2920; J2930

== ENCOUNTER 2022-04-18 09:42 | Emergency (ER) | payer MEDICARE, MEDICAID, SELFPAY ==
--- NOTE | ~2022-04-18 | XR_ITS ---
EXAMINATION: XR CHEST CLINICAL INFORMATION: Dizziness with weakness COMPARISON: March 09, 2022 TECHNIQUE: 2 views of the chest were obtained. FINDINGS: There are small lung volumes present. There appears be some discoid atelectasis present within the right middle lobe with elevation of the right hemidiaphragm. No pneumothorax or pleural effusion. Heart normal size. No evidence of pulmonary edema. There is left subcoracoid calcific bursitis. XR/XR chest 2V IMPRESSION: No significant acute parenchymal disease.
--- NOTE | ~2022-04-18 | CT_ITS ---
EXAMINATION: CT HEAD WITHOUT CONTRAST CLINICAL INFORMATION: Weakness and dizziness COMPARISON: March 10, 2022 TECHNIQUE: Contiguous axial imaging was performed from the skull base to vertex without intravenous administration of contrast. This CT examination was performed using dose optimization techniques as appropriate, variously including the following: *Automated exposure control *Adjustment of mA and/or kV according to patient size (this includes techniques or standardized protocols for targeted exams where dose is matched to indication/reason for exam; i.e. extremities or head) *Use of iterative reconstruction technique DLP: 758 mGy-cm FINDINGS: No intracranial hemorrhage, significant mass effect or midline structure shift, or abnormal intracranial the ventricles, sulci, and cisterns appear unremarkable. Osborne-white matter interface is maintained. No abnormal extra-axial fluid collections identified. Paranasal sinuses and mastoid air cells unremarkable. CT/CT head/brain wo con IMPRESSION: No acute intracranial pathology.
[2022-04-18 09:55] VITALS: BP 137/72; BP 155/87; PULSE 73; PULSE 75; RESP 18; O2SAT 95; O2SAT 96; BMI 36.6
--- NOTE | 2022-04-18 10:16 | ED_ITS ---
HPI - Weakness General Chief complaint: Weakness Stated complaint: WEAKNESS Time Seen by Provider: 04/18/22 10:16 Source: patient and EMS Mode of arrival: EMS Limitations: no limitations History of Present Illness HPI Narrative: Patient is a 76 year old female presenting to the emergency department today with dizziness and general weakness. Patient states that she has a history of vertigo and this feels like another vertigo episode. Patient states that she feels somewhat nauseous. Patient denies any dizziness, lightheadedness, abdominal pain, vomiting, fever, chills, blurry vision, double vision, loss of vision, chest pain, difficulty breathing, shortness of breath, back pain, night sweats, pain with urination, increased urinary frequency, increased urinary urgency, blood in her urine or stool, syncope or a near syncopal episode, recent trauma or falls, bowel incontinence, bladder incontinence, bowel retention, bladder retention, or any other complaints at this time. MD Complaint: generalized weakness Location: generalized Migration: none Severity: mild Relieving factors: none Exacerbating factors: none Associated symptoms: nausea/vomiting Related Data Home Medications Medication Instructions Recorded Confirmed cyclobenzaprine 5 mg tablet 1 tab PO BID 10/18/20 03/09/22 metoprolol succinate 100 mg 1 tab PO DAILY 10/18/20 03/09/22 tablet,extended release 24 hr simvastatin 80 mg tablet 1 tab PO DAILY 10/18/20 03/09/22 pregabalin 50 mg capsule 1 cap PO BID 03/09/22 03/09/22 Previous Rx's Medication Instructions Recorded dextromethorphan-guaifenesin 10 10 ml PO Q6H PRN cough #237 mL 03/16/22 mg-100 mg/5 mL oral syrup prednisone 20 mg tablet 20 mg PO DAILY #3 tabs 03/16/22 Allergies Allergy/AdvReac Type Severity Reaction Status Date / Time No Known Allergies Allergy Verified 10/18/20 05:39 [No Known Allergies*] Review of Systems Constitutional: Constitutional: Reports no additional constitutional complaints, Denies chills, Denies fever(s), Denies night sweats and Reports weakness Eyes: Eyes: Reports no additional eye complaints, Denies blurry vision, Denies change in vision, Denies diplopia, Denies eye discharge, Denies loss of vision and Denies eye pain ENT: Reports dizziness Cardiovascular: Cardiovascular: Reports no additional cardiovascular complaints, Denies chest pain, Denies lightheadedness, Denies Loss of Consciousness and Denies dyspnea Respiratory: Respiratory: Reports no additional respiratory complaints and Denies dyspnea Gastrointestinal: Gastrointestinal: Reports no additional gastrointestinal complaints, Denies abdominal pain, Denies melena, Denies hematochezia, Denies ch pattie in bowel habits, Denies change in stool character, Reports nausea and Reports vomiting Genitourinary: Genitourinary: Denies hematuria, Denies urinary frequency, Denies dysuria, Denies urinary incontinence, Denies urinary hesitancy and Denies urinary urgency Musculoskeletal: Musculoskeletal: Reports no additional musculoskeletal complaints, Denies numbness and Denies tingling Neurologic: Reports dizziness, Denies loss of vision, Denies numbness, Denies tingling and Reports weakness Psychiatric: Psychiatric: Reports no additional psychiatric complaints Endocrine: Endocrine: Reports no additional endocrine complaints Hematologic/Lymphatic: Hematologic/Lymphatic: Reports no additional hemat ologic/lymphatic complaints Allergic/Immunologic: Allergic/Immunologic: Reports no additional allergic/immunologic complaints PMFSH Past Medical History Attestation statement: The following information was validated with the patient. Source: old records reviewed Medical History Cerebral palsy Chronic pain Hyperlipidemia Hypertension Surgical History History of orthopedic surgery Social History Social History Household Members: None Housing: Skilled Nursing Do you presently have visiting nurse or other home services: No (lives in [facility]) Patient Tobacco Use Status: Never used Tobacco Advance Directives: Yes Advance Directives Information Provided: No Advance Directives on File: No service: No Current occupational status: retired Physical Exam Vital Signs: Vital Signs: Last Vital Signs Temp 97.4 F 04/18/22 13:45 Pulse 76 04/18/22 13:45 Resp 20 04/18/22 13:45 BP 126/91 H 04/18/22 13:45 Pulse Ox 96 04/18/22 13:45 O2 Del Method 04/18/22 13:45 BMI result Body Mass Index 36.6 Const: General: cooperative, no acute distress, alert and awake Nutritional Appearance: well nourished Orientation/consciousness: patient oriented x3 Limitations: no limitations HEENT: Head: Yes normal to inspection and Yes atraumatic Ears: hearing grossly normal bilaterally and external ears normal General nose exam: Normal external nose present, no nasal discharge noted and no epistaxis Face and sinus: Yes normal facial exam, No abrasion and No laceration Mouth: Normal oral and palatal mucosa present, no drooling and no muffled voice Eyes: General: appearance normal, both eyes and all related structures Periorbital: periorbital findings normal Eyelids: Yes eyelids normal Conjunctivae: conjunctivae normal Pupils: Equal, round and reactive pupils present EOM: EOMs intact bilaterally Neck: Neck: Yes normal visual inspection, Yes full ROM and Yes no lymphadenopathy Chest: Chest palpation & inspection: normal inspection of the chest Resp: Effort & Inspection: normal respiratory effort and able to speak in complete sentences Auscultation: clear to auscultation bilaterally Cardio: Rate: regular rate Rhythm: regular rhythm GI: Inspection: Yes normal to inspection Palpation (GI): Soft to palpation, not firm, nontender and no guarding Neuro: General: patient oriented x3 and moves all extremities Cranial nerves: Yes Equal, round and reactive pupils present Cognition (Neuro): normal cognition Motor exam (neuro): 5/5 motor strength present throughout Sensory Exam: Normal double simultaneous stimulation for sensation Coordination: [id number] test normal Extrem: General: Yes normal to inspection, Yes full ROM and Yes capillary refill normal Psych: Appearance: grossly normal Mental Status: mental status grossly normal Affect: normal affect Attitude: cooperative Thought process: Normal thought process present Thought content: Normal thought content present Insight: Good insight present (Psych) NIH Stroke Scale Internal: Initial- Upon Arrival Time: 10:16 Level of Consciousness: Alert Level of Consciousness Questions: Answers both questions correctly Level of Consciousness Commands: Performs both tasks correctly Best Gaze: Normal Visual: No visual loss Facial Palsy: Normal Motor Arm (Right): No drift Motor Arm (Left): No drift Motor Leg (Right): No drift Motor Leg (Left): No drift Limb Ataxia: Absent Sensory: Normal Best Language: No aphasia Dysarthia: Normal Extinction and Inattention: No abnormality Score: 0 MDM - Weakness MDM Narrative Medical decision making narrative: Patient is a 76 year old female presenting to the emergency department today with general weakness, nausea, and dizziness. Patient's physical exam was unremarkable. Patient's blood work was unremarkable. Patient's urine showed no acute process. Patient's EKG was unremarkable. Patient's chest x-ray and head CT showed no acute process. I explained my physical exam findings as well as all test results to the patient. I answered all questions asked by the patient. Patient received IV fluids, zofran, and meclazine which she stated helped her symptoms significantly. I stressed the importance of the patient taking her medication as prescribed. I stressed the importance of the patient following up with her primary care provider. I stressed the importance of the patient returning to the emergency department immediately if her symptoms were to worsen or if she were to develop any dizziness, shortness of breath, difficulty breathing, chest pain, blurry vision, loss of vision, nausea, vomiting, abdominal pain, fever, chills, back pain, or any other complaints. Patient verbalized agreement and understanding with this treatment plan and discharge. Medical Records Attestation: I reviewed the patient's medical records. Lab Data Attestation: I reviewed the patient's lab results. Result diagrams: 04/18/22 10:54 04/18/22 10:54 Labs: Lab Results 04/18/22 04/18/22 04/18/22 Range/Units 10:54 10:54 10:54 WBC 9.8 (4.8-10.8) X10*3/uL RBC 4.62 (4.20-5.50) X10*6/uL Hgb 13.4 (12.0-16.0) g/dl Hct 40.9 (37.0-47.0) % MCV 88.5 (80.0-98.0) fL MCH 29.0 (27.0-33.0) pg MCHC 32.8 (31.0-35.0) g/dl RDW 13.6 (11.0-16.0) % Plt Count 232 (160-400) X10*3/uL MPV 9.1 L (9.4-12.3) fL Immature Gran % (Auto) 0.6 H (0.0-0.4) % Neut % (Auto) 81.2 H (45-73) % Lymph % (Auto) 11.5 L (20-40) % Apache % (Auto) 5.7 (2-11) % Eos % (Auto) 0.7 (0-4) % Baso % (Auto) 0.3 (0-2) % Lymph # (Auto) 1.1 L (1.2-4.9) X10*3/uL [place] # (Auto) 0.6 (0.1-1.2) X10*3/uL Eos # (Auto) 0.1 (0.0-0.4) X10*3/uL Baso # (Auto) 0.0 (0.0-0.2) X10*3/uL Abs Immat Gran (auto) 0.06 H (0.00-0.03) X10*3/uL Absolute Neuts (auto) 8.0 (2.0-8.3) x10*3/uL Absolute Nucleated RBC 0.000 (0.0-0.012) X10*3/uL Nucleated RBC % (auto) 0.0 (0.0-0.2) /100WBC Sodium 143 (135-145) mmol/L Potassium 4.4 (3.3-5.1) mmol/L Chloride 107 (96-108) mmol/L Carbon Dioxide 26 (22-29) mmol/L Anion Gap 14 (12-20) BUN 18 H (9-16) mg/dL Creatinine 0.79 (0.5-1.4) mg/dL Estim Creat Clear Calc 65.5 Estimated GFR > 60 Random Glucose 108 (60-115) mg/dL Calcium 9.3 D (8.4-10.2) mg/dL Magnesium 2.3 (1.6-2.6) mg/dL Total Bilirubin 0.7 (0.0-1.0) mg/dL AST 22 (5-31) U/L ALT 27 (0-31) U/L Alkaline Phosphatase 141 H (39-117) U/L Troponin I High Sens < 3.5 (<3.5-17.0) ng/L Total Protein 6.4 L (6.5-8.0) g/dL Albumin 4.1 (3.5-5.0) g/dL Urine Color Urine Appearance Urine pH (5.0-8.0) Ur Specific Lake (1.005-1.025) Urine Protein (Neg-Trace) mg/dL Urine Glucose (UA) (Negative) mg/dL Urine Ketones (Negative) mg/dL Urine Blood (Negative) Urine Nitrite (Negative) Ur Leukocyte Esterase (Negative) Urine RBC (0-2) /HPF Urine WBC (0-5) /HPF Ur Squamous Epith Cells (0-2) /HPF Urine Bacteria (None Seen) Hyaline Casts (0-2) /LPF COVID-19 (LI) (Negative) COVID-19 Clin Com 04/18/22 04/18/22 Range/Units 10:54 12:44 WBC (4.8-10.8) X10*3/uL RBC (4.20-5.50) X10*6/uL Hgb (12.0-16.0) g/dl Hct (37.0-47.0) % MCV (80.0-98.0) fL MCH (27.0-33.0) pg MCHC (31.0-35.0) g/dl RDW (11.0-16.0) % Plt Count (160-400) X10*3/uL MPV (9.4-12.3) fL Immature Gran % (Auto) (0.0-0.4) % Neut % (Auto) (45-73) % Lymph % (Auto) (20-40) % [place] % (Auto) (2-11) % Eos % (Auto) (0-4) % Baso % (Auto) (0-2) % Lymph # (Auto) (1.2-4.9) X10*3/uL [place] # (Auto) (0.1-1.2) X10*3/uL Eos # (Auto) (0.0-0.4) X10*3/uL Baso # (Auto) (0.0-0.2) X10*3/uL Abs Immat Gran (auto) (0.00-0.03) X10*3/uL Absolute Neuts (auto) (2.0-8.3) x10*3/uL Absolute Nucleated RBC (0.0-0.012) X10*3/uL Nucleated RBC % (auto) (0.0-0.2) /100WBC Sodium (135-145) mmol/L Potassium (3.3-5.1) mmol/L Chloride (96-108) mmol/L Carbon Dioxide (22-29) mmol/L Anion Gap (12-20) BUN (9-16) mg/dL Creatinine (0.5-1.4) mg/dL Estim Creat Clear Calc Estimated GFR Random Glucose (60-115) mg/dL Calcium (8.4-10.2) mg/dL Magnesium (1.6-2.6) mg/dL Total Bilirubin (0.0-1.0) mg/dL AST (5-31) U/L ALT (0-31) U/L Alkaline Phosphatase (39-117) U/L Troponin I High Sens (<3.5-17.0) ng/L Total Protein (6.5-8.0) g/dL Albumin (3.5-5.0) g/dL Urine Color Yellow Urine Appearance Clear Urine pH 6.0 (5.0-8.0) Ur Specific Lake 1.015 (1.005-1.025) Urine Protein Negative (Neg-Trace) mg/dL Urine Glucose (UA) Negative (Negative) mg/dL Urine Ketones Negative (Negative) mg/dL Urine Blood Negative (Negative) Urine Nitrite Negative (Negative) Ur Leukocyte Esterase Small (1+) H (Negative) Urine RBC 0-2 (0-2) /HPF Urine WBC 0-5 (0-5) /HPF Ur Squamous Epith Cells 6-10 (0-2) /HPF Urine Bacteria Trace (None Seen) Hyaline Casts 0-2 (0-2) /LPF COVID-19 (LI) Negative (Negative) COVID-19 Clin Com See Note Imaging Data Chest x-ray: Attestation: I personally reviewed and interpreted this imaging study as follows: My impression: No acute process. Radiologist's impression: EXAMINATION: XR CHEST CLINICAL INFORMATION: Dizziness with weakness COMPARISON: March 09, 2022 TECHNIQUE: 2 views of the chest were obtained. FINDINGS: There are small lung volumes present. There appears be some discoid atelectasis present within the right middle lobe with elevation of the right hemidiaphragm. No pneumothorax or pleural effusion. Heart normal size. No evidence of pulmonary edema. There is left subcoracoid calcific bursitis. XR/XR chest 2V IMPRESSION: No significant acute parenchymal disease. Dictated By: Chau Lucas MD Signed By: Electronically signed by Chau Lucas MD 04/18/[address] scan - head: Attestation: I personally reviewed and interpreted this imaging study as follows: My impression: No acute process. Radiologist's impression: EXAMINATION: CT HEAD WITHOUT CONTRAST CLINICAL INFORMATION: Weakness and dizziness? COMPARISON: March 10, 2022 TECHNIQUE: Contiguous axial imaging was performed from the skull base to vertex without intravenous administration of contrast. This CT examination was performed using dose optimization techniques as appropriate, variously including the following: *Automated exposure control *Adjustment of mA and/or kV according to patient size (this includes techniques or standardized protocols for targeted exams where dose is matched to indication/reason for exam; i.e. extremities or head) *Use of iterative reconstruction technique DLP: 758 mGy-cm FINDINGS: No intracranial hemorrhage, significant mass effect or midline structure shift, or abnormal intracranial the ventricles, sulci, and cisterns appear unremarkable. Osborne-white matter interface is maintained. No abnormal extra-axial fluid collections identified. Paranasal sinuses and mastoid air cells unremarkable. ? CT/CT head/brain wo con IMPRESSION: No acute intracranial pathology. Dictated By: Chau Lucas MD Signed By: Electronically signed by Chau Lucas MD 04/18/22 1058 ECG Data Attestation: I personally reviewed and interpreted this ECG as follows: ECG interpretation date: 04/18/22 ECG interpretation time: 10:47 Prior ECG tracings: available for review Interpretation: Vent. Rate: 078 BPM ? ? Atrial Rate: 078 BPM P-R Int: 160 ms? QRS Dur: 080 ms QT Int: 392 ms ? ? ? P-R-T Axes: 054 057 042 degrees QTc Int: 446 ms ? Normal sinus rhythm Normal ECG When compared with ECG of 18-OCT-2020 06:14, No significant change was found Discharge Plan Discharge Clinical Impression: Vertigo Patient Disposition: Home, Self-Care Instructions: Vertigo (ED), Dizziness (ED) Additional Instructions: Follow up with your primary care provider. Return to the emergency department immediately if your symptoms worsen or if you develop any dizziness, shortness of breath, difficulty breathing, chest pain, blurry vision, loss of vision, nausea, vomiting, abdominal pain, fever, chills, back pain, or any other complaints. Prescriptions: No Action metoprolol succinate 100 mg tablet extended release 24 hr 1 tab PO DAILY simvastatin 80 mg tablet 1 tab PO DAILY cyclobenzaprine 5 mg tablet 1 tab PO BID pregabalin 50 mg capsule 1 cap PO BID dextromethorphan-guaifenesin 10-100 mg/5 mL Syrup 10 ml PO Q6H PRN (Reason: cough) Qty: 237 0RF prednisone 20 mg tablet 20 mg PO DAILY Qty: 3 0RF Referrals: Patrick Barron MD [Primary Care Provider] -
--- NOTE | 2022-04-18 10:23 | ECG_ITS ---
Test Reason : weakness Blood Pressure : / mmHG Vent. Rate : 078 BPM Atrial Rate : 078 BPM P-R Int : 160 ms QRS Dur : 080 ms QT Int : 392 ms P-R-T Axes : 054 057 042 degrees QTc Int : 446 ms Normal sinus rhythm Normal ECG When compared with ECG of 18-OCT-2020 06:14, No significant change was found Referred By: Aidee Stiles Electronically Signed By:TREVON MOTA
[2022-04-18] MEDS: 0.9 % Sodium Chloride 1,000 ML 999 ML IV (10:55)
[2022-04-18] MEDS: Meclizine HCl 25 MG TABLET PO (10:56)
[2022-04-18] MEDS: ondansetron HCL 4 MG/2 ML VIAL IVPUSH (10:56)
[2022-04-18 10:59] LABS: MANUAL DIFF FLAG NO
[2022-04-18 11:01] LABS: Basophils Percent Auto 0.3 % (0-2); Eosinophils Absolute Auto 0.1 X10*3/uL (0.0-0.4); Eosinophils Percent Auto 0.7 % (0-4); Hematocrit 40.9 % (37.0-47.0); Hemoglobin 13.4 g/dl (12.0-16.0); Imm Gran Abs Auto 0.06 X10*3/uL (0.00-0.03); Imm Gran Pct Auto 0.6 % (0.0-0.4); Lymphocytes Absolute Auto 1.1 X10*3/uL (1.2-4.9); Lymphocytes Percent Auto 11.5 % (20-40); Mean Corpuscular HGB Conc 32.8 g/dl (31.0-35.0); Mean Corpuscular Volume 88.5 fL (80.0-98.0); Mean Platelet Volume 9.1 fL (9.4-12.3); Monocytes Absolute Auto 0.6 X10*3/uL (0.1-1.2); Monocytes Percent Auto 5.7 % (2-11); Neutrophils Percent Auto 81.2 % (45-73); Platelet Count 232 X10*3/uL (160-400); Red Blood Count 4.62 X10*6/uL (4.20-5.50); Red Cell Distribution Width 13.6 % (11.0-16.0); White Blood Count 9.8 X10*3/uL (4.8-10.8)
[2022-04-18 11:27] LABS: Alanine Aminotransferase 27 U/L (0-31); Albumin Level 4.1 g/dL (3.5-5.0); Alkaline Phosphatase 141 U/L (39-117); Anion Gap 14 (12-20); Aspartate Amino Transferase 22 U/L (5-31); Bilirubin Total 0.7 mg/dL (0.0-1.0); Blood Urea Nitrogen 18 mg/dL (9-16); Calcium 9.3 mg/dL (8.4-10.2); Carbon Dioxide 26 mmol/L (22-29); Chloride 107 mmol/L (96-108); Creatinine Clr Calc Pharmacy 65.5; Estimated Glomerular Filt Rate > 60; Glucose Random 108 mg/dL (60-115); Potassium 4.4 mmol/L (3.3-5.1); Sodium 143 mmol/L (135-145); Total Protein 6.4 g/dL (6.5-8.0)
[2022-04-18 11:29] LABS: COVID-19 Test Negative (Negative); IDNOW Serial# 16C4AD1C
[2022-04-18 11:33] LABS: Magnesium 2.3 mg/dL (1.6-2.6)
[2022-04-18 11:35] LABS: Troponin-I High Sensitivity < 3.5 ng/L (<3.5-17.0)
[2022-04-18 12:52] LABS: Appearance Urine Clear; Color Urine Yellow; Glucose Urine UA Negative (Negative); Leukocyte Esterase Urine Small (1+) (Negative); Nitrite Urine Negative (Negative); Specific Gravity - Urine 1.015 (1.005-1.025); Urine Blood Negative (Negative); Urine Ketones Negative (Negative); Urine Protein Negative (Neg-Trace)
[2022-04-18 13:09] LABS: Bacteria Urine Trace (None Seen); Hyaline Casts Urine 0-2 /LPF (0-2); RBC Urine 0-2 /HPF (0-2); UACC Culture Trigger YES; WBC Urine 0-5 /HPF (0-5)
[2022-04-18 13:45] VITALS: BP 126/91; PULSE 76; RESP 20; TEMP 36.3; O2SAT 96
[2022-04-18 16:00] VITALS: BP 150/54; PULSE 81; RESP 18; O2SAT 97
--- NOTE | 2022-04-18 17:01 | PC.NURSE ---
pt a&ox3, vss, denies any pain at this time, assisted pt onto bedpan. pt pending transport back to [facility].
--- NOTE | 2022-04-18 17:12 | PC.NURSE ---
pt assisted off of bed akhtar - urinated large unmeasured amount.
--- NOTE | 2022-04-18 22:04 | PC.NURSE ---
call out to [facility] @1806 I WAS INITIALLY GIVEN AN ETA OF @2000 [facility] WAS CALLED BACK @2200 AND WAS GIVEN AN ETA OF WITHIN THE HOUR
== END 2022-04-19 00:30 | disposition home or self-care (01) ==
PROVIDERS: Physician Assistant Medical; Emergency Provider Emergency Medicine; PCP Internal Medicine
DX: R42 Dizziness and giddiness (principal); R53.1 Weakness; Z20.822 Contact with and (suspected) exposure to COVID-19; I10 Essential (primary) hypertension; E78.5 Hyperlipidemia, unspecified; G80.9 Cerebral palsy, unspecified; Z79.02 Long term (current) use of antithrombotics/antiplatelets; Z79.899 Other long term (current) drug therapy
CPT/HCPCS: 70450; 71046; 80053; 81001; 83735; 84484; 85025; 87086; 87635; 93005; 96361; 96374; 99284; J2405

== ENCOUNTER 2022-04-28 17:25 | Emergency (ER) | payer MEDICARE, MEDICAID, OTHER, SELFPAY ==
--- NOTE | ~2022-04-28 | CT_ITS ---
EXAMINATION: CT ABDOMEN AND PELVIS WITHOUT CONTRAST CLINICAL INFORMATION: Right lower quadrant pain with history of prior appendectomy COMPARISON: CT chest 03/10/2022, CT abdomen pelvis 07/18/2016 TECHNIQUE: Multidetector volumetric imaging was performed from the superior aspect of the liver through the pubic symphysis. Sagittal and coronal reformatted images were obtained on the technologist's workstation. This CT examination was performed using dose optimization techniques as appropriate, variously including the following: *Automated exposure control *Adjustment of mA and/or kV according to patient size (this includes techniques or standardized protocols for targeted exams where dose is matched to indication/reason for exam; i.e. extremities or head) *Use of iterative reconstruction technique DLP: 883 mGy-cm FINDINGS: LUNG BASES: Emphysematous changes may be present but there is significant respiratory artifact limiting assessment. There is been interval improvement/resolution of previously seen lingular infiltrate. The right hemidiaphragm is mildly elevated. LIVER, GALLBLADDER, AND BILIARY TREE: The liver is normal in size, shape, and attenuation. No focal hepatic lesion or biliary ductal dilatation is present. The gallbladder is unremarkable aside from the presence of a tiny calcification in the gallbladder wall (3:29), new when compared to prior. With no evidence of wall radiopaque gallstones, gallbladder wall thickening, or obvious pericholecystic inflammatory changes. PANCREAS: Unremarkable. SPLEEN: Unremarkable. ADRENAL GLANDS: Unremarkable. KIDNEYS AND URETERS: The kidneys are normal in size, shape, and attenuation. Again seen is a benign Bosniak class I cyst arising from the lower pole kidney which needs no further imaging or follow-up. No solid renal masses are seen. No hydronephrosis, hydroureter, or calculi seen. No perinephric stranding. BLADDER: Unremarkable. GASTROINTESTINAL TRACT: The small and large bowel are unremarkable. The appendix is not seen. ABDOMINAL WALL: No significant hernia is appreciated. LYMPH NODES: Normal. VASCULAR: Unremarkable. PELVIC VISCERA: There is a right ovarian/adnexal cyst measuring 4.6 x 4.3 x 5.0 cm which appears unchanged when compared to the 2016 study. A small septation may be present at its base. The left ovary remains unremarkable. The uterus is not present. OSSEOUS STRUCTURES: Degenerative changes are seen in the lower thoracic spine. No bony destructive lesions. CT/CT abdomen pelvis wo IV con IMPRESSION: 1. New punctate calcification gallbladder. If gallbladder disease is a consideration, would recommend abdominal ultrasound. 2. Appearance of the right ovarian cyst is unchanged when compared to 2016 stability of over 5 years is consistent with probable benignity. Fleischner guidelines were followed.
[2022-04-28 17:29] VITALS: BP 141/118; BP 160/80; PULSE 83; PULSE 84; RESP 22; TEMP 36.8; O2SAT 98; BMI 37.8
--- NOTE | 2022-04-28 17:44 | ECG_ITS ---
Test Reason : abd pain Blood Pressure : / mmHG Vent. Rate : 075 BPM Atrial Rate : 075 BPM P-R Int : 148 ms QRS Dur : 076 ms QT Int : 388 ms P-R-T Axes : 048 042 052 degrees QTc Int : 433 ms Normal sinus rhythm Normal ECG When compared with ECG of 18-APR-2022 10:47, No significant change was found Referred By: Cesar Tolliver Electronically Signed By:TREVON MOTA
--- NOTE | 2022-04-28 17:47 | ED.ABDPAIN ---
HPI - Abdominal Pain General Chief Complaint: Abdominal Pain Stated Complaint: DIFF BREATHINF, ABD PAIN Time Seen by Provider: 04/28/22 17:44 Source: patient Limitations: no limitations History of Present Illness HPI narrative: This is a 76-year-old female with a history of an underlying movement disorder, who lives independently, who complains of pain in her right lower abdomen which is intermittent, not present currently, but she has had for 3 days. She denies any associated fever, nausea vomiting, change in appetite, constipation or diarrhea, urinary symptoms. Pain is not worse with movement. Patient denies any prior history of kidney stones. She has had prior appendectomy. The patient denies any cough or shortness of breath. She notes that she had been in the hospital in March for pneumonia. Related Data Home Medications Medication Instructions Recorded Confirmed cyclobenzaprine 5 mg tablet 1 tab PO BID 10/18/20 03/09/22 metoprolol succinate 100 mg 1 tab PO DAILY 10/18/20 03/09/22 tablet,extended release 24 hr simvastatin 80 mg tablet 1 tab PO DAILY 10/18/20 03/09/22 pregabalin 50 mg capsule 1 cap PO BID 03/09/22 03/09/22 Previous Rx's Medication Instructions Recorded dextromethorphan-guaifenesin 10 10 ml PO Q6H PRN cough #237 mL 03/16/22 mg-100 mg/5 mL oral syrup prednisone 20 mg tablet 20 mg PO DAILY #3 tabs 03/16/22 baclofen 10 mg tablet 10 mg PO TID #20 tabs 04/29/22 Allergies Allergy/AdvReac Type Severity Reaction Status Date / Time No Known Allergies Allergy Verified 10/18/20 05:39 [No Known Allergies*] Review of Systems Review of Systems Yes all other systems are reviewed and are negative Constitutional: Reports as per HPI and Denies fever(s) Eyes: Reports as per HPI and Reports no additional eye complaints Reports system reviewed and no additional complaints, except as documented, Reports as per HPI, Denies nasal congestion, Denies nasal discharge and Denies sore throat Cardiovascular: Reports as per HPI, Denies chest pain and Denies dyspnea Respiratory: Reports as per HPI, Denies cough and Denies dyspnea Gastrointestinal: Reports as per HPI, Reports abdominal pain, Denies diarrhea and Denies vomiting Genitourinary: Reports as per HPI, Denies hematuria, Denies urinary frequency and Denies dysuria Musculoskeletal: Reports no additional musculoskeletal complaints and Denies numbness Skin/Breast: Reports as per HPI and Denies rash Reports as per HPI, Denies focal weakness and Denies numbness Psychiatric: Reports no additional psychiatric complaints and Reports as per HPI Endocrine: Reports no additional endocrine complaints and Reports as per HPI Hematologic/Lymphatic: Reports no additional hematologic/lymphatic complaints, Reports as per HPI and Reports other (No peripheral edema) [facility] Past Medical History Medical History Cerebral palsy Chronic pain Hyperlipidemia Hypertension Surgical History History of orthopedic surgery Social History Social History Household Members: None Housing: [facility] Do you presently have visiting nurse or other home services: No (lives in facility) Patient Tobacco Use Status: Never used Tobacco Use of substances other than those prescribed or required for medical reasons: No Advance Directives: No Advance Directives Information Provided: No service: No Current occupational status: retired Physical Exam ED Vital Signs: Vital Signs - 24 hr 04/28/22 17:29 04/28/22 18:26 04/29/22 00:00 Temperature 98.3 F Pulse Rate 84 88 Respiratory Rate 22 H Blood Pressure 141/118 H 143/92 H 131/98 H Pulse Oximetry 98 97 Oxygen Delivery Method Room Air Room Air BMI result Body Mass Index 37.8 Const Other: Underlying movement disorder with some lack of control of head movements but overall pleasant and able to answer questions completely appropriately General: no acute distress Orientation/consciousness: patient oriented x3 HENMT Head: Yes normal to inspection General nose exam: Normal external nose present Mouth: moist mucous membranes Throat: Yes posterior oropharynx normal, Yes tonsils normal and Yes uvula midline Eyes Eyelids: Yes eyelids normal Conjunctivae: conjunctivae normal Pupils: Equal, round and reactive pupils present Neck Neck: Yes supple Resp Effort & Inspection: normal respiratory effort Auscultation: clear to auscultation bilaterally Cardio Rate: regular rate Rhythm: regular rhythm Heart sounds: S1 normal heart sound present, S2 normal heart sound present, no gallops, no murmurs and no rubs GI Inspection: No distended Palpation (GI): Soft to palpation and nontender Auscultation: normal bowel sounds Skin General skin exam: other (Warm and dry) Neuro General: patient oriented x3 and CN's II-XI intact bilaterally Cranial nerves: Yes Equal, round and reactive pupils present Extrem General: Yes no pedal edema Psych Affect: normal affect Attitude: cooperative MDM - Abdominal Pain MDM Narrative Medical decision making narrative: Patient with abdominal pain for 3 days. Patient later described it as a feeling of spasms which may start in her back, around her abdomen. She states in the past she was put on cyclobenzaprine but this has not helped recently. When I initially saw the patient she denied any pain at all and had no abdominal tenderness. Insert knee not localize throat upper quadrant and CT scan finding of a tiny opacity in the gallbladder wall is likely not related to the patient's pain. LFTs unremarkable. Urinalysis negative. Will start the patient on baclofen and she can follow up with her primary care physician and/orneurologist Lab Data Attestation: I reviewed the patient's lab results. Result diagrams: 04/28/22 18:24 04/28/22 20:57 Labs: Lab Results 04/28/22 04/28/22 04/28/22 Range/Units 18:24 20:57 23:35 WBC 8.9 (4.8-10.8) X10*3/uL RBC 4.76 (4.20-5.50) X10*6/uL Hgb 13.9 (12.0-16.0) g/dl Hct 42.2 (37.0-47.0) % MCV 88.7 (80.0-98.0) fL MCH 29.2 (27.0-33.0) pg MCHC 32.9 (31.0-35.0) g/dl RDW 13.5 (11.0-16.0) % Plt Count 221 (160-400) X10*3/uL MPV 9.6 (9.4-12.3) fL Immature Gran % (Auto) 0.6 H (0.0-0.4) % Neut % (Auto) 70.4 (45-73) % Lymph % (Auto) 18.4 L (20-40) % [place] % (Auto) 8.7 (2-11) % Eos % (Auto) 1.4 (0-4) % Baso % (Auto) 0.5 (0-2) % Lymph # (Auto) 1.6 (1.2-4.9) X10*3/uL [place] # (Auto) 0.8 (0.1-1.2) X10*3/uL Eos # (Auto) 0.1 (0.0-0.4) X10*3/uL Baso # (Auto) 0.0 (0.0-0.2) X10*3/uL Abs Immat Gran (auto) 0.05 H (0.00-0.03) X10*3/uL Absolute Neuts (auto) 6.3 (2.0-8.3) x10*3/uL Absolute Nucleated RBC 0.000 (0.0-0.012) X10*3/uL Nucleated RBC % (auto) 0.0 (0.0-0.2) /100WBC Sodium 142 (135-145) mmol/L Potassium 4.4 (3.3-5.1) mmol/L Chloride 108 (96-108) mmol/L Carbon Dioxide 25 (22-29) mmol/L Anion Gap 13 (12-20) BUN 14 (9-16) mg/dL Creatinine 0.74 (0.5-1.4) mg/dL Estim Creat Clear Calc 71.1 Estimated GFR > 60 Random Glucose 98 (60-115) mg/dL Calcium 8.8 (8.4-10.2) mg/dL Total Bilirubin 0.7 (0.0-1.0) mg/dL AST 21 (5-31) U/L ALT 25 (0-31) U/L Alkaline Phosphatase 141 H (39-117) U/L Total Protein 6.0 L (6.5-8.0) g/dL Albumin 3.8 (3.5-5.0) g/dL Urine Color Yellow Urine Appearance Clear Urine pH 5.5 (5.0-9.0) Ur Specific [place] 1.015 (1.005-1.025) Urine Protein Negative (Neg-Trace) mg/dL Urine Glucose (UA) Negative (Negative) mg/dL Urine Ketones Negative (Negative) mg/dL Urine Blood Negative (Negative) Urine Nitrite Negative (Negative) Ur Leukocyte Esterase Negative (Negative) Imaging Data CT scan - abdomen: Radiologist's impression: Patient: Claudia Godfrey MR#: [id number] : 1945 Acct:[id number] Age/Sex: 76 / F ADM Date: 04/28/22 Loc: HO.ED Ordering Physician: Cesar Tolliver MD Date of Service: 04/28/22 Procedure(s): CT abdomen pelvis wo IV con Accession Number(s): [id number] cc: Cesar Tolliver MD~ EXAMINATION: CT ABDOMEN AND PELVIS WITHOUT CONTRAST? CLINICAL INFORMATION: Right lower quadrant pain with history of prior appendectomy? COMPARISON: CT chest 03/10/2022, CT abdomen pelvis 07/18/2016? TECHNIQUE: Multidetector volumetric imaging was performed from the superior aspect of the liver through the pubic symphysis. Sagittal and coronal reformatted images were obtained on the technologist's workstation.? This CT examination was performed using dose optimization techniques as appropriate, variously including the following: *Automated exposure control *Adjustment of mA and/or kV according to patient size (this includes techniques or standardized protocols for targeted exams where dose is matched to indication/reason for exam; i.e. extremities or head) *Use of iterative reconstruction technique DLP: 883 mGy-cm FINDINGS: LUNG BASES: Emphysematous changes may be present but there is significant respiratory artifact limiting assessment. There is been interval improvement/resolution of previously seen lingular infiltrate. The right hemidiaphragm is mildly elevated. LIVER, GALLBLADDER, AND BILIARY TREE: The liver is normal in size, shape, and attenuation. No focal hepatic lesion or biliary ductal dilatation is present. The gallbladder is unremarkable aside from the presence of a tiny calcification in the gallbladder wall (3:29), new when compared to prior. With no evidence of wall radiopaque gallstones, gallbladder wall thickening, or obvious pericholecystic inflammatory changes.? PANCREAS: Unremarkable.? SPLEEN: Unremarkable.? ADRENAL GLANDS: Unremarkable.? KIDNEYS AND URETERS: The kidneys are normal in size, shape, and attenuation. Again seen is a benign Bosniak class I cyst arising from the lower pole kidney which needs no further imaging or follow-up. No solid renal masses are seen. No hydronephrosis, hydroureter, or calculi seen. No perinephric stranding. ? BLADDER: Unremarkable.? GASTROINTESTINAL TRACT: The small and large bowel are unremarkable. The appendix is not seen.? ABDOMINAL WALL: No significant hernia is appreciated.? LYMPH NODES: Normal. VASCULAR: Unremarkable. PELVIC VISCERA: There is a right ovarian/adnexal cyst measuring 4.6 x 4.3 x 5.0 cm which appears unchanged when compared to the 2016 study. A small septation may be present at its base. The left ovary remains unremarkable. The uterus is not present. OSSEOUS STRUCTURES: Degenerative changes are seen in the lower thoracic spine. No bony destructive lesions.? CT/CT abdomen pelvis wo IV con IMPRESSION: 1.? New punctate calcification gallbladder. If gallbladder disease is a consideration, would recommend abdominal ultrasound. 2.? Appearance of the right ovarian cyst is unchanged when compared to 2016 stability of over 5 years is consistent with probable benignity. ? Dictated By: Fredo Gar MD ECG Data Attestation: I personally reviewed and interpreted this ECG as follows: ECG interpretation date: 04/28/22 ECG interpretation time: 19:56 Interpretation: Normal sinus rhythm with a rate of 75. No ST elevation or depression. Normal gross axis. No ectopy. Normal EKG. Discharge Plan Discharge Clinical Impression: Abdominal pain, Back spasm Patient Disposition: Home, Self-Care Instructions: Abdominal Pain (ED), Muscle Spasm (ED) Additional Instructions: Follow-up with your primary care physician. Use baclofen as prescribed instead of cyclobenzaprine. He can also use acetaminophen. Return for any new or worsened symptoms. Prescriptions: New baclofen 10 mg tablet 10 mg PO TID Qty: 20 0RF No Action metoprolol succinate 100 mg tablet extended release 24 hr 1 tab PO DAILY simvastatin 80 mg tablet 1 tab PO DAILY cyclobenzaprine 5 mg tablet 1 tab PO BID pregabalin 50 mg capsule 1 cap PO BID dextromethorphan-guaifenesin 10-100 mg/5 mL Syrup 10 ml PO Q6H PRN (Reason: cough) Qty: 237 0RF prednisone 20 mg tablet 20 mg PO DAILY Qty: 3 0RF
[2022-04-28 18:26] VITALS: BP 143/92
[2022-04-28 18:28] LABS: MANUAL DIFF FLAG NO
[2022-04-28 18:48] LABS: Basophils Percent Auto 0.5 % (0-2); Eosinophils Absolute Auto 0.1 X10*3/uL (0.0-0.4); Eosinophils Percent Auto 1.4 % (0-4); Hematocrit 42.2 % (37.0-47.0); Hemoglobin 13.9 g/dl (12.0-16.0); Imm Gran Abs Auto 0.05 X10*3/uL (0.00-0.03); Imm Gran Pct Auto 0.6 % (0.0-0.4); Lymphocytes Absolute Auto 1.6 X10*3/uL (1.2-4.9); Lymphocytes Percent Auto 18.4 % (20-40); Mean Corpuscular HGB Conc 32.9 g/dl (31.0-35.0); Mean Corpuscular Hemoglobin 29.2 pg (27.0-33.0); Mean Corpuscular Volume 88.7 fL (80.0-98.0); Mean Platelet Volume 9.6 fL (9.4-12.3); Monocytes Absolute Auto 0.8 X10*3/uL (0.1-1.2); Monocytes Percent Auto 8.7 % (2-11); Neutrophils Absolute Auto 6.3 x10*3/uL (2.0-8.3); Neutrophils Percent Auto 70.4 % (45-73); Platelet Count 221 X10*3/uL (160-400); Red Blood Count 4.76 X10*6/uL (4.20-5.50); Red Cell Distribution Width 13.5 % (11.0-16.0); White Blood Count 8.9 X10*3/uL (4.8-10.8)
[2022-04-28 21:20] LABS: Alanine Aminotransferase 25 U/L (0-31); Albumin Level 3.8 g/dL (3.5-5.0); Alkaline Phosphatase 141 U/L (39-117); Anion Gap 13 (12-20); Aspartate Amino Transferase 21 U/L (5-31); Bilirubin Total 0.7 mg/dL (0.0-1.0); Blood Urea Nitrogen 14 mg/dL (9-16); Calcium 8.8 mg/dL (8.4-10.2); Carbon Dioxide 25 mmol/L (22-29); Chloride 108 mmol/L (96-108); Creatinine Clr Calc Pharmacy 71.1; Estimated Glomerular Filt Rate > 60; Glucose Random 98 mg/dL (60-115); Potassium 4.4 mmol/L (3.3-5.1); Sodium 142 mmol/L (135-145)
[2022-04-29] VITALS: BP 131/98; PULSE 88; O2SAT 97
[2022-04-29 00:07] LABS: Appearance Urine Clear; Color Urine Yellow; Glucose Urine UA Negative (Negative); Leukocyte Esterase Urine Negative (Negative); Nitrite Urine Negative (Negative); PH 5.5 (5.0-9.0); Specific Gravity - Urine 1.015 (1.005-1.025); Urine Blood Negative (Negative); Urine Ketones Negative (Negative); Urine Protein Negative (Neg-Trace)
--- NOTE | 2022-04-29 00:33 | PC.NURSE ---
[facility] booked for d/c home, ambulance not available until 04/29/22 @0900.
[2022-04-29] MEDS: Baclofen 20 MG TABLET PO (00:35)
[2022-04-29 08:41] LABS: Glucose, Whole Blood 128 mg/dL (60-115)
--- NOTE | 2022-04-29 08:53 | PC.NURSE ---
Pt report dizziness and recent Vertigo diagnosis. VSS, POC 128. Dr Gil aware, new order for Meclizine, awaits transport back to [facility]
[2022-04-29 08:54] VITALS: BP 126/71; PULSE 82; RESP 16; O2SAT 95
[2022-04-29] MEDS: Meclizine HCl 25 MG TABLET PO (08:55)
== END 2022-04-29 10:11 | disposition home or self-care (01) ==
PROVIDERS: Emergency Provider Emergency Medicine; PCP Internal Medicine
DX: R10.31 Right lower quadrant pain (principal); R06.02 Shortness of breath; M54.50 Low back pain, unspecified; Z79.899 Other long term (current) drug therapy
CPT/HCPCS: 36415; 74176; 80053; 81003; 82947; 85025; 93005; 99284; 99285

== ENCOUNTER 2022-09-11 09:57 | Outpatient (REF) | payer MEDICARE, MEDICAID, OTHER, SELFPAY ==
[2022-09-11 10:01] LABS: MANUAL DIFF FLAG NO
[2022-09-11 10:03] LABS: Basophils Absolute Auto 0.1 X10*3/uL (0.0-0.2); Basophils Percent Auto 0.6 % (0-2); Eosinophils Absolute Auto 0.3 X10*3/uL (0.0-0.4); Eosinophils Percent Auto 3.6 % (0-4); Hematocrit 44.5 % (37.0-47.0); Hemoglobin 14.9 g/dl (12.0-16.0); Imm Gran Abs Auto 0.05 X10*3/uL (0.00-0.03); Imm Gran Pct Auto 0.6 % (0.0-0.4); Lymphocytes Absolute Auto 2.4 X10*3/uL (1.2-4.9); Lymphocytes Percent Auto 29.9 % (20-40); Mean Corpuscular HGB Conc 33.5 g/dl (31.0-35.0); Mean Corpuscular Hemoglobin 28.9 pg (27.0-33.0); Mean Corpuscular Volume 86.4 fL (80.0-98.0); Mean Platelet Volume 9.1 fL (9.4-12.3); Monocytes Absolute Auto 0.6 X10*3/uL (0.1-1.2); Monocytes Percent Auto 7.7 % (2-11); Neutrophils Absolute Auto 4.5 x10*3/uL (2.0-8.3); Neutrophils Percent Auto 57.6 % (45-73); Platelet Count 242 X10*3/uL (160-400); Red Blood Count 5.15 X10*6/uL (4.20-5.50); Red Cell Distribution Width 13.2 % (11.0-16.0); White Blood Count 7.9 X10*3/uL (4.8-10.8)
[2022-09-11 10:21] LABS: Alanine Aminotransferase 32 U/L (0-31); Albumin Level 4.3 g/dL (3.5-5.0); Alkaline Phosphatase 147 U/L (39-117); Anion Gap 16 (12-20); Aspartate Amino Transferase 26 U/L (5-31); Blood Urea Nitrogen 17 mg/dL (9-16); Calcium 9.6 mg/dL (8.4-10.2); Carbon Dioxide 22 mmol/L (22-29); Chloride 110 mmol/L (96-108); Estimated Glomerular Filt Rate > 60; Glucose Fasting 91 mg/dL (60-99); Potassium 4.9 mmol/L (3.3-5.1); Sodium 143 mmol/L (135-145); Total Protein 6.7 g/dL (6.5-8.0)
== END 2022-09-11 09:58 | disposition home or self-care (01) ==
LOC: HO.LNP 09:57
PROVIDERS: Visit Provider Internal Medicine
DX: G80.9 Cerebral palsy, unspecified (principal)
CPT/HCPCS: 80053; 85025

== ENCOUNTER 2024-09-28 20:33 | Emergency (ER) | payer MEDICARE, SELFPAY ==
[2024-09-28 20:39] VITALS: BP 150/110; PULSE 88; O2SAT 95
[2024-09-28 20:42] VITALS: BP 133/116; PULSE 78; RESP 22; TEMP 36.8; O2SAT 96; BMI 42.1
[2024-09-28 22:02] LABS: Alanine Aminotransferase 27 U/L (0-31); Albumin Level 4.3 g/dL (3.5-5.0); Alkaline Phosphatase 119 U/L (39-117); Anion Gap 12 (12-20); Aspartate Amino Transferase 31 U/L (5-31); Blood Urea Nitrogen 24 mg/dL (9-16); Calcium 9.5 mg/dL (8.4-10.2); Carbon Dioxide 22 mmol/L (22-29); Chloride 111 mmol/L (96-108); Creatinine Clr Calc Pharmacy 77.4; Estimated Glomerular Filt Rate > 60; Glucose Random 117 mg/dL (60-115); Lipase 19 U/L (8-78); Potassium 4.2 mmol/L (3.3-5.1); Sodium 141 mmol/L (135-145); Total Protein 7.2 g/dL (6.5-8.0)
[2024-09-28 22:30] LABS: Basophils Percent Auto 0.4 % (0-2); Eosinophils Absolute Auto 0.1 X10*3/uL (0.0-0.4); Eosinophils Percent Auto 1.1 % (0-4); Hematocrit 41.3 % (37.0-47.0); Hemoglobin 14.1 g/dl (12.0-16.0); Imm Gran Abs Auto 0.04 X10*3/uL (0.00-0.03); Imm Gran Pct Auto 0.4 % (0.0-0.4); Lymphocytes Absolute Auto 1.4 X10*3/uL (1.2-4.9); Lymphocytes Percent Auto 14.8 % (20-40); Mean Corpuscular HGB Conc 34.1 g/dl (31.0-35.0); Mean Corpuscular Hemoglobin 29.8 pg (27.0-33.0); Mean Corpuscular Volume 87.3 fL (80.0-98.0); Mean Platelet Volume 9.5 fL (9.4-12.3); Monocytes Absolute Auto 0.6 X10*3/uL (0.1-1.2); Monocytes Percent Auto 6.3 % (2-11); Neutrophils Absolute Auto 7.2 x10*3/uL (2.0-8.3); Platelet Count 184 X10*3/uL (160-400); Red Blood Count 4.73 X10*6/uL (4.20-5.50); Red Cell Distribution Width 13.4 % (11.0-16.0); White Blood Count 9.3 X10*3/uL (4.8-10.8)
[2024-09-28 22:53] LABS: Influenza A PCR NEGATIVE (Negative); Influenza B PCR NEGATIVE (Negative); Resp Syncy Virus RNA Qual PCR NEGATIVE (Negative); SARS COV2 PCR INHOUSE NEGATIVE (Negative)
--- NOTE | 2024-09-29 01:18 | ED.NAVMDI ---
HPI - Nausea/Vomiting/Diarrhea General Chief complaint: Nausea/Vomiting/Diarrhea Stated complaint: nausea x 2days,vomiting, cerebral palsy Time Seen by Provider: 09/29/24 01:18 Source: patient Mode of arrival: ambulatory Limitations: no limitations History of Present Illness ED Provider: HPI Narrative: Patient's history of cerebral palsy not eating for last 2 days feeling weak denies any abdominal pain no cold symptoms feel nauseated and dizzy unable to take her medication for last few days no fever no chills Related Data Home Medications ?Medication ?Instructions ?Recorded ?Confirmed cyclobenzaprine 5 mg tablet 1 tab PO BID 10/18/20 03/09/22 metoprolol succinate 100 mg 1 tab PO DAILY 10/18/20 03/09/22 tablet,extended release 24 hr simvastatin 80 mg tablet 1 tab PO DAILY 10/18/20 03/09/22 pregabalin 50 mg capsule 1 cap PO BID 03/09/22 03/09/22 Previous Rx's ?Medication ?Instructions ?Recorded dextromethorphan-guaifenesin 10 10 ml PO Q6H PRN cough #237 mL 03/16/22 mg-100 mg/5 mL oral syrup prednisone 20 mg tablet 20 mg PO DAILY #3 tabs 03/16/22 baclofen 10 mg tablet 10 mg PO TID #20 tabs 04/29/22 ondansetron 4 mg disintegrating 4 mg PO Q6-8H PRN nausea and 09/29/24 tablet vomiting #7 tabs Allergies Allergy/AdvReac Type Severity Reaction Status Date / Time No Known Allergies Allergy Verified 09/28/24 20:42 [No Known Allergies*] Review of Systems Review of Systems: Yes all other systems are reviewed and are negative PMFSH Past Medical History Medical History Chronic pain Hyperlipidemia Hypertension Cerebral palsy Surgical History History of orthopedic surgery Social History Social History Household Members: None Housing: [facility]f Do you presently have visiting nurse or other home services: No (lives in facility) Alcohol intake: never Patient Tobacco Use Status: Never used Tobacco Smoked in Last 30 Days: No Use of substances other than those prescribed or required for medical reasons: No Advance Directives: No Advance Directives Information Provided: No service: No Current occupational status: retired Physical Exam Vital Signs: Vital Signs: Last Vital Signs Temp 98.3 F 09/28/24 20:42 Pulse 78 09/28/24 20:42 Resp 22 H 09/28/24 20:42 BP 133/116 H 09/28/24 20:42 Pulse Ox 96 09/28/24 20:42 O2 Del Method Room Air 09/28/24 20:42 BMI result Body Mass Index 42.1 Appearance: Alert. Oriented X3. No acute distress. anxious Eyes: PERRLA, No Nystagmus no pallor or icterus ENT: Pharynx normal. Oral Mucosa moist Neck: Normal inspection. Neck supple. CVS: Normal heart rate and rhythm. Pulses normal. Respiratory: No respiratory distress. Equal air entry bilateral, no wheezing/rales/rhonchi Abdomen: Soft and nontender. Bowel sounds are present, no mass palpable, no CVA tenderness Skin: Skin warm and dry. Normal skin color. Normal skin turgor. Extremities: No lower extremity edema. No calf tenderness Neuro: Oriented X 3. No focal deficits Medications Administered Discontinued Medications Generic Name Dose Route Start Last Admin Trade Name Freq PRN Reason Stop Dose Admin Ondansetron HCl 4 mg 09/29/24 01:51 09/29/24 02:04 Ondansetron Odt 4 Mg Tab.Rapdis TRANSLINGU 09/29/24 01:52 4 mg ONCE ONE Administration Medical Decision Making Medical Decision Making [facility] Narrative: Patient nonspecific nausea with increased anxiety noted to be not in any distress with mild tenderness in epigastric area patient has slept very well in the ER had p.o. fluids will discharge patient home for nonspecific nausea which has not improved Differential Diagnosis Differential Diagnoses: The differential diagnosis associated with the presentation includes Anxiety/depression/pancreatitis/gastritis Lab Data [facility] Lab Attestation statement: I reviewed the patient's lab results. 09/28/24 22:05 09/28/24 21:32 Labs: Lab Results 09/28/24 09/28/24 Range/Units 21:32 22:05 WBC 9.3 (4.8-10.8) X10*3/uL RBC 4.73 (4.20-5.50) X10*6/uL Hgb 14.1 (12.0-16.0) g/dl Hct 41.3 (37.0-47.0) % MCV 87.3 (80.0-98.0) fL MCH 29.8 (27.0-33.0) pg MCHC 34.1 (31.0-35.0) g/dl RDW 13.4 (11.0-16.0) % Plt Count 184 (160-400) X10*3/uL MPV 9.5 (9.4-12.3) fL Immature Gran % (Auto) 0.4 (0.0-0.4) % Neut % (Auto) 77.0 H (45-73) % Lymph % (Auto) 14.8 L (20-40) % [place] % (Auto) 6.3 (2-11) % Eos % (Auto) 1.1 (0-4) % Baso % (Auto) 0.4 (0-2) % Lymph # (Auto) 1.4 (1.2-4.9) X10*3/uL [place] # (Auto) 0.6 (0.1-1.2) X10*3/uL Eos # (Auto) 0.1 (0.0-0.4) X10*3/uL Baso # (Auto) 0.0 (0.0-0.2) X10*3/uL Abs Immat Gran (auto) 0.04 H (0.00-0.03) X10*3/uL Absolute Neuts (auto) 7.2 (2.0-8.3) x10*3/uL Absolute Nucleated RBC 0.000 (0.0-0.012) X10*3/uL Nucleated RBC % (auto) 0.0 (0.0-0.2) /100WBC Sodium 141 (135-145) mmol/L Potassium 4.2 (3.3-5.1) mmol/L Chloride 111 H (96-108) mmol/L Carbon Dioxide 22 (22-29) mmol/L Anion Gap 12 (12-20) BUN 24 H (9-16) mg/dL Creatinine 0.69 (0.5-1.4) mg/dL Estim Creat Clear Calc 77.4 Estimated GFR > 60 Random Glucose 117 H (60-115) mg/dL Calcium 9.5 (8.4-10.2) mg/dL Total Bilirubin 1.0 (0.0-1.0) mg/dL AST 31 (5-31) U/L ALT 27 (0-31) U/L Alkaline Phosphatase 119 H (39-117) U/L Total Protein 7.2 (6.5-8.0) g/dL Albumin 4.3 (3.5-5.0) g/dL Lipase 19 (8-78) U/L Influenza Type A (PCR) NEGATIVE (Negative) Influenza Type B (PCR) NEGATIVE (Negative) RSV RNA Qual (PCR) NEGATIVE (Negative) SARS-CoV-2 RNA (RT-PCR) NEGATIVE (Negative) Discharge Plan Discharge Clinical Impression: Anxiety, Nausea Patient Disposition: Home, Self-Care Instructions: Acute Nausea and Vomiting (ED), Anxiety (ED) Additional Instructions: Drink plenty of fluids Zofran for nausea as prescribed Follow with your PCP Prescriptions: New ondansetron 4 mg tablet,disintegrating 4 mg PO Q6-8H PRN (Reason: nausea and vomiting) Qty: 7 0RF No Action metoprolol succinate 100 mg tablet extended release 24 hr 1 tab PO DAILY simvastatin 80 mg tablet 1 tab PO DAILY cyclobenzaprine 5 mg tablet 1 tab PO BID pregabalin 50 mg capsule 1 cap PO BID dextromethorphan-guaifenesin 10-100 mg/5 mL Syrup 10 ml PO Q6H PRN (Reason: cough) Qty: 237 0RF prednisone 20 mg tablet 20 mg PO DAILY Qty: 3 0RF baclofen 10 mg tablet 10 mg PO TID Qty: 20 0RF Print Language: Citizen [place]
[2024-09-29] MEDS: Ondansetron ODT 4 MG TAB.RAPDIS TRANSLINGU (02:04)
--- NOTE | 2024-09-29 05:25 | PC.NURSE ---
pt given cracker and vani krissy. kept intake down, denies nausea at this time
[2024-09-29 06:45] VITALS: BP 165/84; PULSE 110; RESP 18; TEMP 36.4; O2SAT 95
--- NOTE | 2024-09-29 09:15 | PC.NURSE ---
Pt. refusing VS prior to discharge, stating that she doesn't like this RN's face
[2024-09-29 10:26] VITALS: BP 165/84; PULSE 110; RESP 18; TEMP 36.4; O2SAT 95
== END 2024-09-29 10:26 | disposition home or self-care (01) ==
PROVIDERS: Emergency Provider Internal Medicine; PCP Internal Medicine
DX: R11.2 Nausea with vomiting, unspecified (principal); R42 Dizziness and giddiness; F41.1 Generalized anxiety disorder; F43.0 Acute stress reaction; Z03.818 Encounter for observation for suspected exposure to other biological agents ruled out; Z79.899 Other long term (current) drug therapy
CPT/HCPCS: 0241U; 80053; 83690; 85025; 99283; 99284

== ENCOUNTER 2025-03-14 15:46 | Outpatient (AMB) | payer MEDICARE, SELFPAY ==
--- NOTE | 2025-03-14 15:35 | A.OFFPC_ITS ---
Vital Signs 03/14/25 15:37 BMI Reason not done Patient refused/unable BP 126/60 Respiration 18 Pulse 80 Pulse Source Pulse Oximeter Temp 97.8 F Temp Source Temporal Artery Scan Pulse Oximetry (%) 95 Oxygen Delivery Method Room Air Comment patient in wheelchair Intake Visit Reasons: Establish care Escrow Clerk Required: No Accompanied by: home health aid Allergies No Known Allergies (No Known Allergies*) Allergy (Verified 03/14/25 16:06) Medication List - Last Reconciled 03/14/25 by Latonia Richardson PA-C acetaminophen-codeine 300-30 mg 1 tab PO TID PRN cyclobenzaprine 10 mg PO BID meclizine 25 mg PO TID PRN metoprolol succinate ER 1 tab PO DAILY pregabalin 300 mg PO BID simvastatin 1 tab PO DAILY sulindac 200 mg PO BID Tobacco use date assessed: 03/14/25 Fall risk assessment: 1 Fall in past year Last assessed Fall Risk: 03/14/25 Dental Screening Dental Screen Date: 03/14/25 Did you have a dental visit in the last 12 months?: No Did you have a dental problem in the last 6 months where you did not have access to dental care?: No Was dental information given to patient?: Patient has dentist (patient has dentures) HPI Establish care HPI Details The patient is a 79-year-old female presenting for a primary care appointment. The patient has a history of cerebral palsy, which necessitates the use of a wheelchair for mobility. She resides at [facility] and has b [facility] living there for the past 8 to 10 years. She also has a history of hypertension and hyperlipidemia, for which she is on medication. The patient reports chronic pain, which has been worsening over time. She is currently prescribed Tylenol with Codeine, but she does not take it as frequently as prescribed due to its ineffectiveness. She also takes pregabalin 300 mg twice a day for pain management. Recently, she has experienced headaches, which she attributes to hitting her head. She denies any dizziness, changes in vision, or weakness on one side of the body. The patient also reports leg swelling, which is attributed to her difficulty in positioning herself in bed and during transfers. Social History - Housing: Resides at [facility] for the past 8 to 10 years - Functional Status: Wheelchair dependen t due to cerebral palsy [facility] Medical History Wheelchair dependence Headache Establishing care with new doctor, encounter for Depression Leg swelling Neck pain on right side Right shoulder pain Chronic pain Hyperlipidemia Hypertension Cerebral palsy Surgical History History of orthopedic surgery Family History Mother No problems noted. Father No problems noted. Social History Household Members: None Housing: Apartment Alcohol intake: current Alcohol intake frequency: does not drink Patient Tobacco Use Status: Never used Tobacco service: No Current occupational status: retired Cognitive needs: Yes (patient in wheelchair due to cerebral palsy) Hearing needs: No Vision needs: Yes (reading glasses) Questionnaire PHQ-9 Over the last 2 weeks, how often have you been bothered by any of the following problems? 1. Little interest or pleasure in doing things: not at all 2. Feeling down, depressed, or hopeless: not at all 3. Trouble falling or staying asleep, or sleeping too much: not at all 4. Feeling tired or having little energy: not at all 5. Poor appetite or overeating: not at all 6. Feeling bad about yourself - or that you are a failure or have let yourself or your family down: not at all 7. Trouble concentrating on things, such as reading the newspaper or watching television: not at all 8. Moving or speaking so slowly that other people could have noticed. Or the opposite - being so fidgety or restless that you have been moving around a lot more than usual: not at all 9. Thoughts that you would be better off or of hurting yourself in some way: not at all Total score: 0 Depression Screening Interpretation: Negative Depression Screening Done: Yes 95682 - PHQ-9 Billing: Yes Source: Developed by Drs. Jose Perdomo, Tenisha Uribe, Jose Carballo and colleagues, with an educational david from [employer]. Thrive Questionnaire Date Thrive assessed: 03/14/25 I am a: Patient What is your living situation today?: I have a steady place to live Within the past 12 months, did the food you bought not last and you didn't have the money to get more?: Never true Within the past 12 months, did you worry whether your food would run out before you got money to buy more?: Never true Do you have trouble paying for medicines?: No Do you have trouble getting transportation to medical appointments?: No Do you have trouble paying your heating and electricity bill?: No Do you have trouble taking care of your child, family member or friend?: No Do you have trouble with day-to-day activities such as bathing, preparing meals, shopping, managing finances, etc.?: Yes (patient has home health aid) Are you currently unemployed and looking for a job?: No Are you interested in more education?: No Please select the resources that you would like help with: None THRIVE Score: 0 AUDIT C Alcohol Use Questionnaire (AUDIT-C) 1. How often do you have a drink containing alcohol?: Never 3. How often do you have six or more drinks on one occasion?: Never Total Score: 0 Score Reviewed/Action Taken: No MICHELLE-7 AMB Questionnaire MICHELLE-7 Date MICHELLE - 7 assessed: 03/14/25 Feeling nervous, anxious, or on edge: 0 = Not at all Not being able to stop or control worryin = Not at all Worrying too much about different things: 0 = Not at all Trouble relaxin = Not at all Being so restless that it is hard to sit still: 0 = Not at all Becoming easily annoyed or irritable: 0 = Not at all Feeling afraid as if something awful might happen: 0 = Not at all Total MICHELLE-7 score (0-4 normal; 5-9 mild; 10-14 moderate; 15-21 severe): 0 Source: Developed by Drs. Jose Perdomo, Tenisha Uribe, Jose Carballo and colleagues, with an educational david from [employer]. MICHELLE-7 Assessment Billing MICHELLE-7 Assessment Tool: MICHELLE-7 Assessment 25699 Review of Systems Const Details: - Neurological: Reports headaches, denies dizziness, changes in vision, or weakness on one side of the body - Musculoskeletal: Reports chronic pain and leg swelling All systems reviewed & are unremarkable except as noted in HPI and below Physical exam (Primary Care) Vital Signs: Last Vital Signs Temp 97.8 F 03/14/25 15:37 Pulse 80 03/14/25 15:37 Resp 18 03/14/25 15:37 BP 126/60 03/14/25 15:37 Pulse Ox 95 03/14/25 15:37 Oxygen Delivery Method Room Air 03/14/25 15:37 Care Plan Goal for BP management: <140/90 at Goal BMI Assessment/Plan discussion: High BMI High, discussed plan: lifestyle, weight reduction, dietary, physical activity and alcohol moderation Tobacco/Smoking Status: Tobacco use Status Tobacco use date assessed 03/14/25 03/14/25 15:38 Patient Tobacco Use Status Never used Tobacco 03/14/25 16:01 PHQ-9: PHQ-9 Score PHQ-9: Total score 0 03/14/25 16:07 Depression Screening Interpretation: Negative Thrive Assessment: Date of Thrive Assessment Date Thrive assessed 03/14/25 03/14/25 15:38 Const Other: Appearance: Alert. Oriented X3. No acute distress. Head: Normal external exam. Normocephalic. Atraumatic. Reports pain in the head, right trapezius/right paracervical musculature and right shoulder, but no dizziness or changes in vision. No weakness noted. Eyes: Pupils are equal, round, and reactive to light. Extraocular movements intact. Conjunctiva and sclera normal. Eyelids normal. Throat: Pharynx normal. Uvula midline. Moist mucous membranes. Neck: Normal inspection. Neck supple. Full range of motion. No adenopathy. Thyroid Normal. No meningeal signs. No neck mass noted. Reports pain on the right side of the neck. Cardiovascular: Normal heart rate and rhythm. Heart sound normal. No murmurs noted. Pulses normal throughout. Respiratory: No respiratory distress. Painless inspiration. Breath sounds normal. No wheezes/rales/rhonchi noted. Chest nontender. No accessory muscle usage noted or decreased air movement noted. Abdomen: Soft and nontender. Back:Full range of motion noted. Skin: Skin warm and dry. Normal skin color. Normal skin turgor. No rashes/lesions/lacerations noted. Extremities: Reports leg swelling, likely due to positioning. Extremities exhibit normal range of motion. Moving all extremities no obvious focal deficits noted. Neuro: Oriented X 3. Wheelchair-bound due to cerebral palsy at baseline. Reports chronic pain and worsening pain. Results AMB Hemoglobin A1c AMB Hemoglobin A1c 5.1 % Last Edit by TAVO Lugo on 03/14/25 16:30 Results Reviewed Results Reviewed: - Labs: CBC normal, no anemia, normal white blood cell count, chloride 111 (chronic), normal sodium and potassium, anion gap 12, BUN 24, random glucose 117, normal liver enzymes, alkaline phosphatase 119 Coding Level of Care Code New Pt Level 5 (44273) Complex EM visit Add On G2211 Diagnoses Establishing care with new doctor, encounter for Z76.89 Cerebral palsy G80.9 Hypertension I10 Hyperlipidemia E78.5 Chronic pain G89.29 Headache R51.9 Leg swelling M79.89 Wheelchair dependence Z99.3 Depression F32.A Additional Codes PHQ-9 - 37149 - PHQ-9 Billing: Yes ([id number]) MICHELLE-7 Assessment Billing - MICHELLE-7 Assessment Tool: MICHELLE-7 Assessment 01437 ([id number]) Time Spent (min) 60 Assessment & Plan Assessment & Plan (1) Establishing care with new doctor, encounter for: Code(s): Z76.89 - Persons encountering health services in other specified circumstances Category: Medical (2) Cerebral palsy: Code(s): G80.9 - Cerebral palsy, unspecified Category: Medical Plan: The patient will continue to receive support for mobility and daily activities due to her cerebral palsy. A referral to physical therapy has been made to assist with mobility and to address any musculoskeletal issues. (3) Hypertension: Code(s): I10 - Essential (primary) hypertension Category: Medical Plan: The patient is on metoprolol for blood pressure management and will continue this medication. (4) Hyperlipidemia: Code(s): E78.5 - Hyperlipidemia, unspecified Category: Medical Plan: The patient is on simvastatin for lipid management and will continue this medication. (5) Chronic pain: Code(s): G89.29 - Other chronic pain Category: Medical Plan: The patient reports worsening chronic pain and is currently on Tylenol with Codeine and pregabalin. A referral to pain management has been made to explore additional pain control options. (6) Headache: Code(s): R51.9 - Headache, unspecified Category: Medical Plan: The patient reports headaches following a head injury, but denies any neurological deficits. Monitoring and symptomatic treatment are advised. (7) Leg swelling: Code(s): M79.89 - Other specified soft tissue disorders Category: Medical Plan: The patient reports leg swelling, likely due to positioning issues during sleep and transfers. Physical therapy has been recommended to address this issue. (8) Wheelchair dependence: Code(s): Z99.3 - Dependence on wheelchair Category: Medical Plan: Patient requiring additional services only has 2 hours of home health aide services 3 times a week. She is wheelchair-bound. She is having difficulty transferring from the bed to the wheelchair. She is at risk for falls. Will place a PT, OT, VNA, home health aide referral. (9) Depression: Code(s): F32.A - Depression, unspecified Category: Medical Plan: Patient reports some depression. Denies any SI or HI. Is agreeable to having a consult with psychiatrist for treatment options. Condition is chronic and stable continue to monitor. Plan Plan Patient was informed and verbally consented to the use of an ambient scribe for clinic note documentation during this visit. 1. Cerebral Palsy The patient will continue to receive support for mobility and daily activities due to her cerebral palsy. A referral to physical therapy has been made to assist with mobility and to address any musculoskeletal issues. 2. Hypertension The patient is on metoprolol for blood pressure management and will continue this medication. 3. Hyperlipidemia The patient is on simvastatin for lipid management and will continue this medication. 4. Chronic Pain The patient reports worsening chronic pain and is currently on Tylenol with Codeine and pregabalin. A referral to pain management has been made to explore additional pain control options. 5. Headache The patient reports headaches following a head injury, but denies any neurological deficits. Monitoring and symptomatic treatment are advised. 6. Leg Swelling The patient reports leg swelling, likely due to positioning issues during sleep and transfers. Physical therapy has been recommended to address this issue. I discussed with the patient the management of her chronic pain, including the current use of Tylenol with Codeine and pregabalin, and the referral to pain management for further evaluation. We also talked about the importance of continuing her current medications for hypertension and hyperlipidemia. I recommended physical therapy to help with mobility issues related to cerebral palsy and to address leg swelling. The patient was informed about the need for fasting blood work to check cholesterol levels. Orders: Orders Vitamin B12 and Folate Today Z00.00 - Encounter for general adult medical examination without abnormal findings TSH reflex Free T4 Today Z00.00 - Encounter for general adult medical examination without abnormal findings Magnesium Today Z00.00 - Encounter for general adult medical examination without abnormal findings Vitamin D 25-OH Total Today Z00.00 - Encounter for general adult medical examination without abnormal findings PT Evaluation and Treatment Today G80.9 - Cerebral palsy, unspecified, M25.511 - Pain in right shoulder, M54.2 - Cervicalgia, M79.89 - Other specified soft tissue disorders Lipid Panel Today Z00.00 - Encounter for general adult medical examination without abnormal findings AMB Hemoglobin A1c Today Z13.9 - Encounter for screening, unspecified Referrals Psychiatry Outpatient Consultation Service F32.A - Depression, unspecified [facility]ospice Referral F32.A - Depression, unspecified, G80.9 - Cerebral palsy, unspecified, M25.511 - Pain in right shoulder, M54.2 - Cervicalgia, M79.89 - Other specified soft tissue disorders Home Health Referral F32.A - Depression, unspecified, G80.9 - Cerebral palsy, unspecified, M25.511 - Pain in right shoulder, M54.2 - Cervicalgia, M79.89 - Other specified soft tissue disorders Medications: New pregabalin 300 mg PO BID 180 caps 0RF 90 days Discontinued dextromethorphan-guaifenesin 10-100 mg/5 mL Discontinued Reason: Patient no longer taking 10 mL PO Q6H PRN 237 mL 0RF cough prednisone Discontinued Reason: Patient no longer taking 20 mg PO DAILY 3 tabs 0RF baclofen Discontinued Reason: Patient no longer taking 10 mg PO TID 20 tabs 0RF ondansetron Discontinued Reason: Patient no longer taking 4 mg PO Q6-8H PRN 7 tabs 0RF nausea and vomiting Patient Instructions: - Continue taking prescribed medications as directed. - Attend physical therapy sessions as scheduled. - Follow up with pain management for chronic pain evaluation. - Schedule and complete fasting blood work for cholesterol check. - Monitor for any new or worsening symptoms and report them promptly.
[2025-03-14 15:37] VITALS: BP 126/60; PULSE 80; RESP 18; TEMP 36.6; O2SAT 95
--- OUTSIDE RECORDS SUMMARY | 2025-03-14 15:52 | XMS_ITS ---
Author Organization [facility] Support Name Relationship Address Phone Claudia Godfrey Guarantor Unknown Unavailable Claudia Godfrey Personal Relationship Unknown Macey vailaDillon [place] [facility] Contact Unknown Unavai lable Allergies and adverse reactions No Known Allergies Immunizations Immunization Status Vaccine Details Vaccine Code CodeSystem Date Notes Influenza completed Influenza, split virus, trivalent, injectable, contains preservative 141 CVX created date: 07/12/2016 administere d date: 06/12/2016 PCV13 (Pneumococcal Conjugate)Vaccine cancelled pneumococcal conjugate vaccine, 13 valent 133 CVX created date: 07/12/2016 consent date: 07/12/2016 PPSV23 (Previous Pneumococcal Polysaccharide)Va ccine completed pneumococcal polysaccharide vaccine, 23 valent 33 CVX created date: 07/29/2016 administere d date: 07/18/2016 Mental Status Section Date Assessment Total Score Description 08/13/2016 BIMS 15 cognitively int act CAM 0 No delirium ind icated PHQ-9 05 mild depression 08/05/2016 BIMS 15 cognitively int act CAM 0 No delirium ind icated PHQ-9 07 mild depression Problems Problem # Description Date of onset Resolved Date Code CodeSystem Concern Status 1 CEREBRAL PALSY, UNSPECIFIED 06/30/[address] active 2 COGNITIVE COMMUNICATION DEFICIT 06/30/[address] active 3 DISPLACED TRANSVERSE FRACTURE OF SHAFT OF RIGHT FIBULA, SUBSEQUENT ENCOUNTER FOR CLOSED FRACTURE WITH ROUTINE HEALING 06/30/[address] active 4 DYSARTHRIA FOLLOWING UNSPECIFIED CEREBROVASCULAR DISEASE 06/30/[id number] active 5 DYSPHAGIA, UNSPECIFIED 06/30/[address] active 6 ESSENTIAL (PRIMARY) HYPERTENSION 06/30/[address] active 7 FEEDING DIFFICULTIES 06/30/[address] active 8 MUSCLE WEAKNESS (GENERALIZED) 06/30/[address] active 9 OTHER ABNORMALITIES OF GAIT AND MOBILITY 06/30/[address] active 10 OTHER DYSPHAGIA 06/30/[address] active 11 OTHER LACK OF COORDINATION 06/30/[address] active 12 OTHER SPECIFIED FORMS OF TREMOR 06/30/[address] active 13 RETENTION OF URINE, UNSPECIFIED 06/30/[address] active 14 URINARY TRACT INFECTION, SITE NOT SPECIFIED 06/30/[address] active Reason for Referral No Reasons for Referral Entered Social History Social History Observation Description Start Date End Date Code Code System Current Smoking Status Tobacco smoking consumption unknown 933790628 SNOMED CT Sex Assigned At Female 1945 20437-2 [facility] Gender Identity Vital Signs Code Code System Vitals Name Values and Units Timing Information 9279-1 [facility] Respiratory Rate Value=20.0 Units=/m in 08/06/2016 8462-4 [facility] Blood Pressure-Diastolic Value=87 Un its=mmHg 08/06/2016 8480-6 [facility] Blood Pressure-Systolic Rccgg=813 Un its=mmHg 08/06/2016 8310-5 [facility] Body Temperature Value=97.0 Units= F 08/06/2016 8867-4 [facility] Heart rate Value=78.0 Units=/min 26384-5 [facility] O2 % BldC Oximetry Value=93.0 Units= % 08/06/2016 36984-8 [facility] Pain Level Value=0.0 08/06/2016 95189-7 [facility] Weight Nwzto=808.0 Units=Lbs 07/2016 8302-2 [facility] Height Value=62.0 Units=Inches 06/30/2016
== END 2025-03-14 17:21 | disposition home or self-care (01) ==
LOC: HO.HMCSH 15:46
PROVIDERS: PCP Internal Medicine; Visit Provider Physician Assistant Medical
DX: G80.9 Cerebral palsy, unspecified (principal); I10 Essential (primary) hypertension; E78.5 Hyperlipidemia, unspecified; G89.29 Other chronic pain; R51.9 Headache, unspecified; M79.89 Other specified soft tissue disorders; Z99.3 Dependence on wheelchair; F32.A Depression, unspecified

== ENCOUNTER → 2025-03-14 15:46 | Outpatient (BNVA) | payer MEDICARE, SELFPAY | PROVIDERS: PCP Internal Medicine; Visit Provider Physician Assistant Medical | DX: Z76.89 Persons encountering health services in other specified circumstances (principal); Z13.1 Encounter for screening for diabetes mellitus; G80.9 Cerebral palsy, unspecified; I10 Essential (primary) hypertension; E78.5 Hyperlipidemia, unspecified; G89.29 Other chronic pain; R51.9 Headache, unspecified; R60.0 Localized edema; F32.A Depression, unspecified; Z99.3 Dependence on wheelchair | CPT/HCPCS: 83036; 96127; 99202 ==

== ENCOUNTER 2025-03-28 13:22 | Outpatient (REF) | payer MEDICARE, SELFPAY ==
[2025-03-28 14:22] LABS: Cholesterol 122 mg/dL (<200); HDL Cholesterol 50 mg/dL (>40); Magnesium 2.1 mg/dL (1.6-2.6); Triglycerides 157 mg/dL (<150)
[2025-03-28 14:34] LABS: Free T4 (Free Thyroxine) 1.01 ng/dL (0.71-1.85); Thyroid Stimulating Hormone 2.23 uIU/mL (0.32-4.0)
[2025-03-28 14:46] LABS: Folate 3.0 ng/mL (> or = 4.0); Vitamin B12 428 pg/mL (200-900)
== END 2025-03-28 13:23 | disposition home or self-care (01) ==
LOC: HO.HVNA 13:22
PROVIDERS: Visit Provider Physician Assistant Medical
DX: Z13.6 Encounter for screening for cardiovascular disorders (principal); G80.9 Cerebral palsy, unspecified
CPT/HCPCS: 36415; 80061; 82306; 82607; 82746; 83735; 84439; 84443

== ENCOUNTER 2025-05-15 23:03 | Emergency (ER) | payer MEDICARE, SELFPAY ==
--- NOTE | 2025-05-15 | ECG_ITS ---
Test Reason : FALL Blood Pressure : */* mmHG Vent. Rate : 76 BPM Atrial Rate : 76 BPM P-R Int : 162 ms QRS Dur : 70 ms QT Int : 368 ms P-R-T Axes : 45 36 49 degrees QTcB Int : 414 ms Normal sinus rhythm Junctional ST depression, probably abnormal Abnormal ECG When compared with ECG of 28-Apr-2022 19:25, No significant change was found Referred By: Generic ED Physician Electronically Signed By: Irvin Watkins
--- NOTE | ~2025-05-15 | CT_ITS ---
CLINICAL HISTORY: fall, head trauma CT cervical spine without contrast Comparison: None provided Findings: There is generalized straightening of the normal cervical lordosis. There is 1-2 mm of anterolisthesis at C2-3, C3-4, and C4-5. No acute fracture or prevertebral soft tissue swelling is identified. [id number] multilevel degenerative disc disease and degenerative facet disease throughout the cervical spine, most pronounced at C5-6 and C6-7. Upper airway is patent. No apical pneumothorax. Calcification posterior to the right lateral mass of C2, nonspecific. This may be related to prior traumatic injury or chondrocalcinosis. IMPRESSION: No acute fracture. This document has been electronically signed by: Bennie Wells MD on 05/16/2025 02:45:42
--- NOTE | ~2025-05-15 | CT_ITS ---
CLINICAL HISTORY: fall, head trauma CT head without contrast Comparison: None provided Findings: There is age-appropriate atrophy. The size and shape of the ventricular system is within normal limits for this degree of atrophy. Mild areas of low-attenuation are identified within the periventricular and deep white matter. Osborne-white differentiation is preserved. No midline shift or mass effect. No intracranial hemorrhage. IMPRESSION: 1. No fracture or intracranial hemorrhage. This document has been electronically signed by: Bennie Wells MD on 05/16/2025 02:41:28
[2025-05-15 23:07] VITALS: BP 122/86; BP 142/92; PULSE 80; PULSE 83; RESP 18; TEMP 36.3; O2SAT 96; O2SAT 97; BMI 40.2
--- NOTE | 2025-05-15 23:19 | PC.NURSE ---
Assumed care of pt, presents with a unwitnessed fall at assisted care facility, pt has a hematoma to the posterior scalp, no blood thinners, c-collar placed by EMS, aaox4, nad, pending provider eval
[2025-05-16 02:33] VITALS: BP 105/51; PULSE 73; RESP 20; TEMP 36.5; O2SAT 98
--- NOTE | 2025-05-16 02:54 | ED.FALL ---
HPI - Fall General Chief Complaint: Fall Stated Complaint: Unwit Fall x2 today, +HS, hematoma R back skull Time Seen by Provider: 05/16/25 01:39 Source: patient, EMS, RN notes reviewed and old records reviewed Mode of arrival: EMS Limitations: no limitations History of Present Illness ED Provider: Dr. Mya Parra HPI Narrative: 79-year-old female with a history of cerebral palsy, wheelchair-bound presenting after an unwitnessed fall that occurred at the independent living facility where she is a resident. Patient reports that she was transferring from her bed to the wheelchair to use the restroom when the wheelchair slipped out from behind her and she fell backwards, hitting her head on the rug. No loss of consciousness. She is unable to ambulate at baseline and was unable to stand up on her own. She was able to call for help though. Had been feeling well prior to the fall. Denies headache, vision changes, neck pain, numbness/tingling/weakness of the extremities that is new from her baseline. She does not use blood thinners. Related Data Home Medications ?Medication ?Instructions ?Recorded ?Confirmed metoprolol succinate 100 mg 1 tab PO DAILY 10/18/20 03/14/25 tablet,extended release 24 hr simvastatin 80 mg tablet 1 tab PO DAILY 10/18/20 03/14/25 acetaminophen 300 mg-codeine 30 mg 1 tab PO TID PRN 03/14/25 03/14/25 tablet cyclobenzaprine 10 mg tablet 10 mg PO BID 03/14/25 03/14/25 meclizine 25 mg tablet 25 mg PO TID PRN dizziness 03/14/25 03/14/25 sulindac 200 mg tablet 200 mg PO BID 03/14/25 03/14/25 Previous Rx's ?Medication ?Instructions ?Recorded pregabalin 300 mg capsule 300 mg PO BID 90 days #180 caps 03/14/25 miscellaneous medical supply 1 ea miscellaneous ONCE #1 ea 04/26/25 miscellaneous medical supply 1 ea miscellaneous ONCE #1 ea 04/26/25 miscellaneous medical supply 1 ea miscellaneous ONCE #1 ea 04/26/25 Allergies Allergy/AdvReac Type Severity Reaction Status Date / Time No Known Allergies (No Known Allergy Verified 05/15/25 23:14 Allergies*) Review of Systems Review of Systems: as per HPI, full review of systems performed and negative but for the above mentioned pertinent positives and negatives. [facility] Past Medical History Medical History Hypertriglyceridemia Folic acid deficiency Vitamin D deficiency Wheelchair dependence Headache Establishing care with new doctor, encounter for Depression Leg swelling Neck pain on right side Right shoulder pain Chronic pain Hyperlipidemia Hypertension Cerebral palsy Surgical History History of orthopedic surgery Family History Family History Mother No problems noted. Father No problems noted. Social History Social History Household Members: None Housing: Apartment Alcohol intake: current Alcohol intake frequency: does not drink Patient Tobacco Use Status: Never used Tobacco Advance Directives: Yes Advance Directives Information Provided: Yes Advance Directives on File: No Do you have a plan to hurt others: No Plan service: No Current occupational status: retired Cognitive needs: Yes (patient in wheelchair due to cerebral palsy) Hearing needs: No Vision needs: Yes (reading glasses) Physical Exam Exam: Exam: GENERAL: Uncomfortable-Appearing, conversant, mild distress due to pain. SKIN: Normal skin color for ethnicity, warm, dry, intact, chronic venous stasis changes bilateral lower extremities. HEENT: Normocephalic, atraumatic, no stridor, airway patent, no raccoon's eyes, no Coppola sign, dentition intact, EOMI. NECK: Soft, supple, full ROM, midline structures nontender, no step-offs, no deformities, no lymphadenopathy. CHEST: Heart regular rate and rhythm, no murmurs, symmetric chest rise and fall, no seatbelt sign, crepitus. PULMONARY: Clear to auscultation bilaterally, no labored breathing, no wheezes/rhales/rhonchi. ABDOMINAL: Soft, nondistended, nontender, positive bowel sounds in all quadrants. : Deferred. MUSCULOSKELETAL: Normal tone, limited range of motion in the bilateral lower extremities secondary to history of cerebral palsy, neurovascularly intact distally, no contusions. NEURO: Alert and oriented x3, CN II through XII intact, equal strength and sensation bilateral upper and lower extremities, no focal neurologic deficits. PSYCHIATRIC: Anxious affect, fluid speech, good eye contact and appropriate demeanor. Vital Signs: Vital Signs: Last Vital Signs Temp 97.7 F 05/16/25 02:33 Pulse 73 05/16/25 02:33 Resp 20 05/16/25 02:33 BP 105/51 L 05/16/25 02:33 Pulse Ox 98 05/16/25 02:33 O2 Del Method Room Air 05/16/25 02:33 BMI result Body Mass Index 40.2 Medical Decision Making Medical Decision Making [facility] Narrative: Patient presents today with chief complaint of trauma. Different diagnosis on this patient includes intracranial hemorrhage, skull fracture, neck injury including fracture or spinal cord pathology. Other diagnoses considered would include chest or abdominal trauma as well as long bone fractures. Based on my physical exam, the ordered imaging modalities are indicated. The patient specifically does not show any signs of central cord syndrome as evidenced by equal strength in the upper extremities with normal two-point discrimination. Sensation is not altered. GCS is appropriate. Patient is neurovascularly intact. There are no signs of vascular emergency. No signs of shock. No respiratory distress. CT does not show evidence of acute fracture or intracranial process. Patient is mentating at her baseline, stable for transfer back to the independent living facility where she is a resident. I encouraged her to follow up with her facility social sciences chair to see if she can get more services from a TIE UP WORKER perspective. She understands and agrees with plan for discharge. Discharged home in stable condition. Differential Diagnosis Differential Diagnoses: The differential diagnosis associated with the presentation includes (As above) Admission/Observation Consideration of admission/observation: Escalation of care including admission/observation considered Independent Interpretation I performed an independent interpretation of an: CT Scan Radiology Impression Discussion of test interpretation with radiology: I have reviewed the radiologist's reading. Independent Historian Clinical information obtained from an independent historian. History obtained from or confirmed by: EMS External Record Review External record reviewed: Inpatient record Chronic Conditions Patient?s care impacted by: Other (Cerebral palsy, wheelchair-bound) Social Determinants Patient?s care significantly limited by Social Determinants of Health including: Other Social Determinant of Health Discharge Plan Discharge Clinical Impression: Unwitnessed fall, Closed head injury, Wheelchair dependence Patient Disposition: Home, Self-Care Instructions: Head Injury (ED), Wheel Chair Transfers (ED) Additional Instructions: Have a conversation with Bryanna Goode about getting more TIE UP WORKER coverage. Your CAT scans did not show any evidence of bleeding in your brain or fractures in your neck however, if you were to develop any new or worsening symptoms, he should return to the hospital immediately. Do not be surprised if you have symptoms of a concussion over the next couple of days. This includes: Headaches, nausea, confusion, difficulty focusing and sometimes blurred vision. This is normal and should improve over time. Prescriptions: No Action miscellaneous medical supply Misc 1 ea miscellaneous ONCE Qty: 1 0RF Rx Instructions: Transport wheelchair to be used daily due to patient wheelchair dependent and cerebral palsy history miscellaneous medical supply Kit 1 ea miscellaneous ONCE Qty: 1 0RF Rx Instructions: Bedside commode use any time the patient needs to use the bathroom miscellaneous medical supply Kit 1 ea miscellaneous ONCE Qty: 1 0RF Rx Instructions: 2/3in Toilet seat riser for elongated toilet with both arm rails. metoprolol succinate 100 mg tablet extended release 24 hr 1 tab PO DAILY simvastatin 80 mg tablet 1 tab PO DAILY cyclobenzaprine 10 mg tablet 10 mg PO BID acetaminophen-codeine 300-30 mg tablet 1 tab PO TID PRN sulindac 200 mg tablet 200 mg PO BID meclizine 25 mg tablet 25 mg PO TID PRN (Reason: dizziness) pregabalin 300 mg capsule 300 mg PO BID 90 Days Qty: 180 0RF Print Language: Nigerien
[2025-05-16 04:28] VITALS: BP 110/56; PULSE 68; RESP 16; TEMP 36.6; O2SAT 99
== END 2025-05-16 04:31 | disposition home or self-care (01) ==
PROVIDERS: Emergency Provider Emergency Medicine; PCP Physician Assistant Medical
DX: S00.03XA Contusion of scalp, initial encounter (principal); W19.XXXA Unspecified fall, initial encounter; Y93.9 Activity, unspecified; Y92.129 Unspecified place in nursing home as the place of occurrence of the external cause; Y99.9 Unspecified external cause status; G80.9 Cerebral palsy, unspecified; E78.1 Pure hyperglyceridemia; E55.9 Vitamin D deficiency, unspecified; R51.9 Headache, unspecified; F32.A Depression, unspecified; E78.5 Hyperlipidemia, unspecified; I10 Essential (primary) hypertension; Z99.3 Dependence on wheelchair
CPT/HCPCS: 70450; 72125; 93005; 99285

== ENCOUNTER → 2025-05-15 23:19 | Outpatient (BNV) | payer MEDICARE, SELFPAY | PROVIDERS: Emergency Provider Emergency Medicine; PCP Physician Assistant Medical; Visit Provider Internal Medicine Cardiovascular Disease | DX: R94.31 Abnormal electrocardiogram [ECG] [EKG] (principal); W19.XXXA Unspecified fall, initial encounter | CPT/HCPCS: 93010 ==

== ENCOUNTER → 2025-05-16 01:39 | Outpatient (BNV) | payer MEDICARE, SELFPAY | PROVIDERS: Emergency Provider Emergency Medicine; PCP Physician Assistant Medical; Visit Provider Radiology Diagnostic Radiology | DX: S09.90XA Unspecified injury of head, initial encounter (principal); W19.XXXA Unspecified fall, initial encounter | CPT/HCPCS: 70450; 72125 ==

== ENCOUNTER 2025-06-22 11:02 | Inpatient (IN) | payer MEDICARE, SELFPAY ==
[2025-06-22] VITALS (10 sets, daily range): BP systolic 99–154; BP diastolic 41–84; PULSE 58–92; RESP 16–19; TEMP 36.3–36.8; O2SAT 87–100; BMI 39.6; BMI 39.9
--- NOTE | ~2025-06-22 | CT_ITS ---
EXAMINATION: CT ANGIOGRAM CHEST CLINICAL INFORMATION: Left-sided chest pain. Shortness of breath.. COMPARISON: March 10, 2022. TECHNIQUE: Multiple axial images were obtained through the chest after the administration of 65 mL of Omnipaque 350 intravenous contrast. Extensive vascular post-processing including two-dimensional and three-dimensional reformatted images were created and reviewed on an independent workstation. SmartPrep technique. This CT examination was performed using dose optimization techniques as appropriate, variously including the following: *Automated exposure control *Adjustment of mA and/or kV according to patient size (this includes techniques or standardized protocols for targeted exams where dose is matched to indication/reason for exam; i.e. extremities or head) *Use of iterative reconstruction technique DLP: 477 mGy-cm FINDINGS: There is IV contrast enhancement within the lumen of the main pulmonary artery or its main left and right branches and subsegmental pulmonary artery branches without gross intraluminal filling defects. No aneurysm or dissection, thoracic aorta. Calcified plaque in the descending thoracic aorta. Bilateral multifocal patchy and confluent pulmonary groundglass. No pleural effusion. No pneumothorax. No gross bronchiectasis. No honeycombing. No gross mediastinal lymphadenopathy. Calcified plaques in the coronary arteries. No pericardial effusion. Heart is not enlarged. No pneumoperitoneum. No pleural effusion. No pneumothorax. No hemothorax. No calcified pleural plaques. S-shaped curvature of the thoracic spine. No acute fracture or listhesis. Brachial right fractures in the posterior lateral aspect of the ribs in the left hemithorax. Moderate to severe degenerative changes in the right glenohumeral joint. Retropharyngeal trajectory of the carotid arteries. The thyroid gland is not enlarged. Elevated right hemidiaphragm. Cholelithiasis. Cystic lesion, right kidney. CT/CT angio chest PE protocol IMPRESSION: No acute pulmonary artery emboli. No aneurysm or dissection, thoracic aorta. Pulmonary edema versus multifocal pneumonia versus pneumonitis. Cholelithiasis.. Fleischner guidelines were followed. Electronically signed by: Loco Hernandez MD 06/22/2025 03:59 PM EDT
--- NOTE | ~2025-06-22 | XR_ITS ---
EXAMINATION: XR CHEST CLINICAL INFORMATION: Chest pain COMPARISON: April 18, 2022 chest x-ray and CT chest March 10, 2022 TECHNIQUE: Frontal view of the chest was obtained. FINDINGS: Low lung volumes are again seen. There is vascular crowding. Heart size is within normal limits. Degenerative changes have progressed in right shoulder with a large medial osteophyte involving the humeral head. Ossified density projects over the region of the left scapula, near the scapular spine. This was present on the prior but has enlarged in size. On CT, it is a subcoracoid region. XR/XR chest 1V IMPRESSION: No acute disease. Low lung volumes. Progressing right shoulder degenerative change Left subcoracoid ossified body. Electronically signed by: Justin Evans MD 06/22/2025 12:48 PM EDT
--- NOTE | 2025-06-22 11:08 | ECG_ITS ---
Test Reason : cp Blood Pressure : */* mmHG Vent. Rate : 95 BPM Atrial Rate : 95 BPM P-R Int : 136 ms QRS Dur : 78 ms QT Int : 348 ms P-R-T Axes : 55 49 30 degrees QTcB Int : 437 ms Sinus rhythm with marked sinus arrhythmia Nonspecific ST abnormality Abnormal ECG When compared with ECG of 15-May-2025 23:19, Non-specific change in ST segment in Lateral leads Referred By: Generic ED Physician Electronically Signed By: LEO DEL RIO
--- NOTE | 2025-06-22 11:09 | ED_ITS ---
HPI - General Adult General Chief complaint: Chest Pain Stated complaint: CP X1DAY Time Seen by Provider: 06/22/25 11:09 Source: patient and EMS Mode of arrival: EMS Limitations: no limitations History of Present Illness ED Provider: Aidee Stiles PA-C HPI narrative: Patient is a 79 year old assigned female at with a history of depression, cerebral palsy (wheelchair bound), HLD, HTN, and heat rashes presenting to the emergency department today with sharp pain under her left breast that radiates into her back. Patient states that over the last day she has had pain under her left breast that radiates into her back and is sharp - worse with deep breathing. Patient denies any other complaints at this time. Related Data Home Medications ?Medication ?Instructions ?Recorded ?Confirmed metoprolol succinate 100 mg 1 tab PO DAILY 10/18/20 tablet,extended release 24 hr simvastatin 80 mg tablet 1 tab PO DAILY 10/18/2002/21 acetaminophen 300 mg-codeine 30 mg 1 tab PO TID PRN 03/14/25 tablet cyclobenzaprine 10 mg tablet 10 mg PO BID 03/14/25 meclizine 25 mg tablet 25 mg PO TID PRN dizziness 0 03/14/25 03/14/25 sulindac 200 mg tablet 200 mg PO BID 03/14/2503/14 Previous Rx's ?Medication ?Instructions ?Recorded miscellaneous medical supply 1 ea miscellaneous ONCE # 1 ea 04/26/25 miscellaneous medical supply 1 ea miscellaneous ONCE # 1 ea 04/26/25 miscellaneous medical supply 1 ea miscellaneous ONCE # 1 ea 04/26/25 pregabalin 300 mg capsule 300 mg PO BID 90 days #180 c aps 06/12/25 Allergies Allergy/AdvReac Type Severity Reaction Status Date / Time No Known Allergies (No Known Allergy Verified 06/22/25 11:15 Allergies*) Review of Systems 2 Constitutional: Constitutional: Reports as per HPI Eyes: Eyes: Reports as per HPI ENT: Reports as per HPI Cardiovascular: Cardiovascular: Reports as per HPI Respiratory: Respiratory: Reports as per HPI Gastrointestinal: Gastrointestinal: Reports as per HPI Genitourinary: Genitourinary: Reports as per HPI Musculoskeletal: Musculoskeletal: Reports as per HPI Integumentary/Breasts: Skin/Breast: Reports as per HPI Neurologic: Reports as per HPI Psychiatric: Psychiatric: Reports as per HPI Endocrine: Endocrine: Reports as per HPI Hematologic/Lymphatic: Hematologic/Lymphatic: Reports as per HPI Allergic/Immunologic: Allergic/Immunologic: Reports as per HPI [facility] Past Medical History Attestation statement: The following information was validated with the patient. Source: old records reviewed and nursing notes reviewed Medical History Hypertriglyceridemia Folic acid deficiency Vitamin D deficiency Wheelchair dependence Headache Establishing care with new doctor, encounter for Depression Leg swelling Neck pain on right side Right shoulder pain Chronic pain Hyperlipidemia Hypertension Cerebral palsy Surgical History History of orthopedic surgery Family History Family History Mother No problems noted. Father No problems noted. Social History Social History Household Members: None Housing: Apartment Alcohol intake: current Alcohol intake frequency: does not drink Patient Tobacco Use Status: Never used Tobacco Smoked in Last 30 Days: No Advance Directives: Yes Advance Directives Information Provided: Yes Advance Directives on File: No Do you have a plan to hurt others: No Plan service: No Current occupational status: retired Cognitive needs: Yes (patient in wheelchair due to cerebral palsy) Hearing needs: No Vision needs: Yes (reading glasses) Physical Exam ED Vital Signs: Vital Signs - 24 hr 06/22/25 11:14 06/22/25 14:38 06/22/25 14:39 Temperature 98.3 F Pulse Rate 92 73 Respiratory Rate 19 17 Blood Pressure 115/84 144/48 H Pulse Oximetry 96 87 L 98 Oxygen Delivery Method Room Air Room Air Nasal Cannula Oxygen Flow Rate 2 BMI result Body Mass Index 39.6 Const General: cooperative, no acute distress, alert and awake Nutritional Appearance: well nourished Orientation/consciousness: patient oriented x3 HENMT Head: Yes normal to inspection and Yes atraumatic Ears: hearing grossly normal bilaterally and external ears normal General nose exam: Normal external nose present, no nasal discharge noted and no epistaxis Face and sinus: Yes normal facial exam, No abrasion and No laceration Mouth: Normal oral and palatal mucosa present, no drooling and no muffled voice Eyes General: appearance normal, both eyes and all related structures Periorbital: periorbital findings normal Eyelids: Yes eyelids normal Conjunctivae: conjunctivae normal Pupils: Equal, round and reactive pupils present EOM: EOMs intact bilaterally Neck Neck: Yes normal visual inspection and Yes full ROM Chest Other: Resp Effort & Inspection: normal respiratory effort and able to speak in complete sentences Neuro General: patient oriented x3, moves all extremities and CN's II-XI intact bilaterally Cranial nerves: Yes Equal, round and reactive pupils present Cognition (Neuro): normal cognition Extrem General: Yes normal to inspection, Yes full ROM and Yes capillary refill normal Psych Appearance: grossly normal Mental Status: mental status grossly normal Affect: normal affect Attitude: cooperative Thought process: Normal thought process present Thought content: Normal thought content present Insight: Good insight present (Psych) Medications Administered Generic Name Dose Route Start Last Admin Trade Name Freq PRN Reason Stop Dose Admin Ceftriaxone Sodium 1 gm/ 50 mls @ 100 mls/hr 06/22/25 16:09 06/22/25 16:24 Sodium Chloride IV 06/22/25 16:38 100 mls/hr ONCE ONE Administration Discontinued Medications Generic Name Dose Route Start Last Admin Trade Name Freq PRN Reason Stop Dose Admin Iohexol 100 ml 06/22/25 15:37 06/22/25 15:37 Iohexol 350 Mg/Ml 100 Ml Infus..Btl IV 06/22/25 15:38 65 ml ONCE ONE Administration Ketorolac Tromethamine 15 mg 06/22/25 11:17 06/22/25 14:26 Ketorolac Tromethamine 15 Mg/Ml Vial IVPUSH 06/22/25 11:18 15 mg ONCE ONE Administration Morphine Sulfate 4 mg 06/22/25 11:17 06/22/25 14:27 Morphine Sulfate 4 Mg/Ml Cartridge IVPUSH 06/22/25 11:18 4 mg ONCE ONE Administration Protocol Ondansetron HCl 4 mg 06/22/25 11:17 06/22/25 14:25 Ondansetron Hcl 4 Mg/2 Ml Vial IVPUSH 06/22/25 11:18 4 mg ONCE ONE Administration Medical Decision Making Medical Decision Making MDM Narrative: Patient is a 79 year old assigned female at with a history of depression, cerebral palsy (wheelchair bound), HLD, HTN, and heat rashes presenting to the emergency department today with sharp pain under her left breast that radiates into her back. Patient's physical exam was as noted in the physical exam portion of this note. Patient has a small skin tag vs. wart in the left breast fold. While in the department the patient's oxygen saturation dropped to 86-87% on room air and she was placed on oxygen at 2 liters via nasal cannula and came up to 95-96%. Patient's blood work showed an elevated d dimer of 506 but otherwise unremarkable. Patient's EKG was unremarkable. Patient's chest x-ray showed no acute process. Patient's CT PE protocol showed multifocal pneumonia vs. pneumonitis. Patient was given IV ceftriaxone. Patient's clinical presentation is most consistent with hypoxia secondary to pneumonia and not sepsis (@1630). Patient was given IV morphine + toradol which she stated helped her pain some. I spoke with the hospitalist team who agreed to admission. I explained my physical exam findings as well as all test results to the patient. I answered all questions asked by the patient. Patient verbalized agreement and understanding with this treatment plan and admission. Differential Diagnosis Differential Diagnoses: The differential diagnosis associated with the presentation includes Pneumonia Pulmonary emboli Chest wall pain Pneumonitis Admission/Observation Consideration of admission/observation: Escalation of care including admission/observation considered Patient admitted as noted in the MDM Rationale portion of this note. Consult Healthcare Provider Management of the patient was discussed with: Hospitalist (agreed to admission as noted in the MDM Rationale portion of this note. ) Lab Data [facility] Lab Attestation statement: I reviewed the patient's lab results. My interpretation of these results are in the MDM Rationale portion of this note. 06/22/25 14:11 06/22/25 14:11 Labs: Lab Results 06/22/25 06/22/25 Range/Units 14:10 14:11 WBC 7.8 (4.8-10.8) X10*3/uL RBC 4.58 (4.20-5.50) X10*6/uL Hgb 13.2 (12.0-16.0) g/dl Hct 41.6 (37.0-47.0) % MCV 90.8 (80.0-98.0) fL MCH 28.8 (27.0-33.0) pg MCHC 31.7 (31.0-35.0) g/dl RDW 13.2 (11.0-16.0) % Plt Count 199 (160-400) X10*3/uL MPV 9.5 (9.4-12.3) fL Immature Gran % (Auto) 0.4 (0.0-0.4) % Neut % (Auto) 70.4 (45-73) % Lymph % (Auto) 19.5 L (20-40) % [place] % (Auto) 6.9 (2-11) % Eos % (Auto) 2.3 (0-4) % Baso % (Auto) 0.5 (0-2) % Lymph # (Auto) 1.5 (1.2-4.9) X10*3/uL [place] # (Auto) 0.5 (0.1-1.2) X10*3/uL Eos # (Auto) 0.2 (0.0-0.4) X10*3/uL Baso # (Auto) 0.0 (0.0-0.2) X10*3/uL Abs Immat Gran (auto) 0.03 (0.00-0.03) X10*3/uL Absolute Neuts (auto) 5.5 (2.0-8.3) x10*3/uL Absolute Nucleated RBC 0.000 (0.0-0.012) X10*3/uL Nucleated RBC % (auto) 0.0 (0.0-0.2) /100WBC D-Dimer High Sensitivty 506 NG/ML Sodium 143 (135-145) mmol/L Potassium 4.1 (3.3-5.1) mmol/L Chloride 110 H (96-108) mmol/L Carbon Dioxide 30 H (22-29) mmol/L Anion Gap 7 L (12-20) BUN 23 H (9-16) mg/dL Creatinine 0.70 (0.5-1.4) mg/dL Estim Creat Clear Calc 73.7 Estimated GFR > 60 Random Glucose 87 (60-115) mg/dL Calcium 9.2 (8.4-10.2) mg/dL Total Bilirubin 0.9 (0.0-1.0) mg/dL AST 21 (5-31) U/L ALT 17 (0-31) U/L Alkaline Phosphatase 112 (39-117) U/L Troponin I High Sens 7.7 (<3.5-17.0) ng/L NT-Pro-B Natriuret Pep 158.0 (<300) pg/mL Total Protein 6.2 L (6.5-8.0) g/dL Albumin 4.0 (3.5-5.0) g/dL Independent Interpretation I performed an independent interpretation of an: EKG, Plain X-Ray and CT Scan Interpretation: My interpretation is in agreement with the radiologist's impression of these imaging studies. L Reason for Exam: cp EXAMINATION: XR CHEST CLINICAL INFORMATION: Chest pain COMPARISON: April 18, 2022 chest x-ray and CT chest March 10, 2022 TECHNIQUE: Frontal view of the chest was obtained. FINDINGS: Low lung volumes are again seen. There is vascular crowding. Heart size is within normal limits. Degenerative changes have progressed in right shoulder with a large medial osteophyte involving the humeral head. Ossified density projects over the region of the left scapula, near the scapular spine. This was present on the prior but has enlarged in size. On CT, it is a subcoracoid region. XR/XR chest 1V IMPRESSION: No acute disease. Low lung volumes. Progressing right shoulder degenerative change Left subcoracoid ossified body. Electronically signed by: Justin Evans MD 06/22/2025 12:48 PM EDT Dictated By: Justin Evans MD Signed By: Electronically signed by Justin Evans MD 06/22/25 1248 Report Number: [id number]: Total DLP = 477.00 mGy-cm Reason for Exam: left sided chest pain, SOB, PE concern EXAMINATION: CT ANGIOGRAM CHEST CLINICAL INFORMATION: Left-sided chest pain. Shortness of breath.. COMPARISON: March 10, 2022. TECHNIQUE: Multiple axial images were obtained through the chest after the administration of 65 mL of Omnipaque 350 intravenous contrast. Extensive vascular post-processing including two-dimensional and three- dimensional reformatted images were created and reviewed on an independent workstation. SmartPrep technique. This CT examination was performed using dose optimization techniques as appropriate, variously including the following: *Automated exposure control *Adjustment of mA and/or kV according to patient size (this includes techniques or standardized protocols for targeted exams where dose is matched to indication/reason for exam; i.e. extremities or head) *Use of iterative reconstruction technique DLP: 477 mGy-cm FINDINGS: There is IV contrast enhancement within the lumen of the main pulmonary artery or its main left and right branches and subsegmental pulmonary artery branches without gross intraluminal filling defects. No aneurysm or dissection, thoracic aorta. Calcified plaque in the descending thoracic aorta. Bilateral multifocal patchy and confluent pulmonary groundglass. No pleural effusion. No pneumothorax. No gross bronchiectasis. No honeycombing. No gross mediastinal lymphadenopathy. Calcified plaques in the coronary arteries. No pericardial effusion. Heart is not enlarged. No pneumoperitoneum. No pleural effusion. No pneumothorax. No hemothorax. No calcified pleural plaques. S-shaped curvature of the thoracic spine. No acute fracture or listhesis. Brachial right fractures in the posterior lateral aspect of the ribs in the left hemithorax. Moderate to severe degenerative changes in the right glenohumeral joint. Retropharyngeal trajectory of the carotid arteries. The thyroid gland is not enlarged. Elevated right hemidiaphragm. Cholelithiasis. Cystic lesion, right kidney. CT/CT angio chest PE protocol IMPRESSION: No acute pulmonary artery emboli. No aneurysm or dissection, thoracic aorta. Pulmonary edema versus multifocal pneumonia versus pneumonitis. Cholelithiasis. Fleischner guidelines were followed. Electronically signed by: Loco Hernandez MD 06/22/2025 03:59 PM EDT Dictated By: Loco Avilez MD Signed By: Electronically signed by Loco Iyer MD 06/22/25 1559 I independently interpreted this EKG and am in agreement with the below findings: Vent. Rate: 95 BPM Atrial Rate: 95 BPM P-R Int: 136 ms QRS Dur: 78 ms QT Int: 348 ms P-R-T Axes: 55 49 30 degrees QTcB Int: 437 ms Sinus rhythm with marked sinus arrhythmia When compared with ECG of 15-May-2025 23:19, Non-specific change in ST segment in Lateral leads DD/ [id number] Radiology Impression Discussion of test interpretation with radiology: I have reviewed the radiologist's reading. Independent Historian Clinical information obtained from an independent historian. History obtained from or confirmed by: EMS (EMS provided additional history and confirmed the history provided by the patient. ) External Record Review External record reviewed: Inpatient record Critical Care Time Critical Care Time Critical Care Time: Yes Total Critical Care Time: 48 Attestation: I spent 48 minutes of Critical Care Time with this patient. This does not include time spent on separately reported billable procedures. Discharge Plan Discharge Clinical Impression: Pneumonia, Hypoxia Patient Disposition: Admitted As Inpatient Print Language: [place]
--- NOTE | 2025-06-22 12:30 | PC.NURSE ---
Unable to obtain iv access, other RN's attempted and unsuccessful. Awaiting U/S attempt
[2025-06-22 14:19] LABS: MANUAL DIFF FLAG NO
--- NOTE | 2025-06-22 14:21 | PC.NURSE ---
IV access obtained via U/S by Russel Velazquez
[2025-06-22 14:29] LABS: Hematocrit 41.6 % (37.0-47.0); Hemoglobin 13.2 g/dl (12.0-16.0); Imm Gran Abs Auto 0.03 X10*3/uL (0.00-0.03); Imm Gran Pct Auto 0.4 % (0.0-0.4); Lymphocytes Absolute Auto 1.5 X10*3/uL (1.2-4.9); Mean Corpuscular HGB Conc 31.7 g/dl (31.0-35.0); Mean Corpuscular Hemoglobin 28.8 pg (27.0-33.0); Mean Corpuscular Volume 90.8 fL (80.0-98.0); NRBC Abs Auto 0.000 X10*3/uL (0.0-0.012); NRBC Pct Auto 0.0 /100WBC (0.0-0.2); Platelet Count 199 X10*3/uL (160-400); Red Blood Count 4.58 X10*6/uL (4.20-5.50); White Blood Count 7.8 X10*3/uL (4.8-10.8)
[2025-06-22 14:32] LABS: D Dimer High Sensitivity 506 NG/ML
[2025-06-22 14:35] LABS: Alanine Aminotransferase 17 U/L (0-31); Albumin Level 4.0 g/dL (3.5-5.0); Alkaline Phosphatase 112 U/L (39-117); Anion Gap 7 (12-20); Aspartate Amino Transferase 21 U/L (5-31); Blood Urea Nitrogen 23 mg/dL (9-16); Calcium 9.2 mg/dL (8.4-10.2); Carbon Dioxide 30 mmol/L (22-29); Chloride 110 mmol/L (96-108); Creatinine Clr Calc Pharmacy 73.7; Estimated Glomerular Filt Rate > 60; Potassium 4.1 mmol/L (3.3-5.1); Sodium 143 mmol/L (135-145); Total Protein 6.2 g/dL (6.5-8.0)
[2025-06-22 14:42] LABS: NT Pro B Type Natriuretic Pept 158.0 pg/mL (<300)
[2025-06-22 14:42] LABS: Troponin-I High Sensitivity 7.7 ng/L (<3.5-17.0)
[2025-06-22] MEDS: iohexoL 350 MG/ML 100 ML INFUS..BTL IV (15:37)
--- NOTE | 2025-06-22 17:12 | PM.IMHP ---
History of Present Illness Date of Service: 06/22/25 Attending physician on admission: Jose Jennings Chief Complaint: left side pain This is a 79-year-old female with a history of cerebral palsy who presents to the emergency department with left side pain. She reports she began having pain under her left breast that started 2 days ago. The pain is worse when she breathes in. She denies any cough, fever, chills. She has been feeling weak in his had postnasal drip. In the emergency department her oxygen saturation dropped to 87% on room air, she required supplemental oxygen to maintain oxygen saturation in the 90s. She had a CTA which showed evidence of multifocal pneumonia versus pneumonitis. She was started on IV antibiotics and admission was requested. Review of Systems Review of Systems: Yes all other systems are reviewed and are negative Constitutional: Constitutional: Denies chills and Denies fever(s) Cardiovascular: Cardiovascular: Reports chest pain, Denies palpitations and Denies dyspnea Respiratory: Respiratory: Reports chest congestion, Denies cough, Reports pain on inspiration and Denies dyspnea Endocrine: Endocrine: Denies palpitations [facility] Medical History Hypertriglyceridemia Folic acid deficiency Vitamin D deficiency Wheelchair dependence Headache Establishing care with new doctor, encounter for Depression Leg swelling Neck pain on right side Right shoulder pain Chronic pain Hyperlipidemia Hypertension Cerebral palsy Family History Mother No problems noted. Father No problems noted. Surgical History History of orthopedic surgery Social History Household Members: None Housing: Apartment Do you presently have visiting nurse or other home services: Yes Alcohol intake: current Alcohol intake frequency: does not drink Patient Tobacco Use Status: Never used Tobacco Smoked in Last 30 Days: No Currently Displaying Signs/Symptoms of Drug Intoxication Withdrawal: No Have you been hit, kicked, punched, or otherwise hurt by someone within the past year? If so, by whom?: No Do you feel safe in your current relationship?: No Current Relationship Is there a partner from a previous relationship who is making you feel unsafe now?: No Are you made to feel afraid or neglected: No Advance Directives: Yes Advance Directives Information Provided: Yes Advance Directives on File: No Advance Directives Date on File: 06/22/25 Do you have a plan to hurt others: No Plan Nutrition Risks: No Nutritional Risk Patient : No : No Poor oral hygiene: No service: No Current occupational status: retired Cognitive needs: Yes (patient in wheelchair due to cerebral palsy) Hearing needs: No Vision needs: Yes (reading glasses) Meds Allergies Allergy/AdvReac Type Severity Reaction Status Date / Time No Known Allergies (No Known Allergy Verified 06/22/25 11:15 Allergies*) Active Medications: Current Medications Acetaminophen (Acetaminophen 325 Mg Tablet) 650 mg PO Q6H PRN PRN Reason: Pain, Mild 1-3,fever,headache Calcium Carbonate (Calcium Carbonate 750 Mg Tab.Chew) 750 mg PO Q4H PRN PRN Reason: Heartburn Enoxaparin Sodium (Enoxaparin Sodium 40 Mg/0.4 Ml Syringe) 40 mg SUBCUT Q24H [facility] Magnesium Hydroxide (Milk Of Magnesia 30 Ml Oral.Susp) 30 ml PO DAILY PRN PRN Reason: Constipation Melatonin (Melatonin 3 Mg Tablet) 6 mg PO BEDTIME PRN PRN Reason: Insomnia Sodium Chloride (0.9 % Sodium Chloride Flush 3 Ml Syringe) 3 ml IVFLUSH QSHIFT [facility] Home Medications ?Medication ?Instructions ?Recorded ?Confirmed ?Last Taken ?Type metoprolol succinate 100 mg 100 mg PO DAILY 10/18/20 06/22/25 06/22/25 10:30 History tablet,extended release 24 hr simvastatin 80 mg tablet 80 mg PO BEDTIME 10/18/20 06/22/25 06/22/25 10:30 History meclizine 25 mg tablet 25 mg PO TID PRN dizziness 03/14/25 06/22/25 06/22/25 10:30 History sulindac 200 mg tablet 200 mg PO BID 03/14/25 06/22/25 06/22/25 10:30 History acetaminophen 325 mg tablet 325 mg PO Q4H PRN Pain 06/22/25 06/22/25 06/22/25 10:30 History Physical Exam Vital Signs and Narrative: Vital Signs: Last Vital Signs Temp 97.8 F 06/22/25 16:49 Pulse 63 06/22/25 16:49 Resp 16 06/22/25 16:49 BP 105/58 L 06/22/25 16:49 Pulse Ox 96 06/22/25 16:49 O2 Del Method Nasal Cannula 06/22/25 16:49 O2 Flow Rate 2 06/22/25 16:49 BMI result Body Mass Index 39.6 Const: General: alert and awake Nutritional Appearance: overweight Orientation/consciousness: patient oriented x3 Resp: Effort & Inspection: normal respiratory effort and able to speak in complete sentences Cardio: Rate: regular rate GI: Inspection: No distended Palpation (GI): Soft to palpation and nontender Neuro: General: patient oriented x3, moves all extremities and CN's II-XI intact bilaterally Extrem: Other: 2+ pitting edema to b/l LE Results Labs 06/22/25 14:11 06/23/25 06:29 Labs: Laboratory Results - last 24 hr 06/22/25 06/22/25 14:10 14:11 MCV 90.8 MCH 28.8 MCHC 31.7 RDW 13.2 Plt Count 199 MPV 9.5 Immature Gran % (Auto) 0.4 Neut % (Auto) 70.4 Lymph % (Auto) 19.5 L [place] % (Auto) 6.9 Eos % (Auto) 2.3 Baso % (Auto) 0.5 Lymph # (Auto) 1.5 [place] # (Auto) 0.5 Eos # (Auto) 0.2 Baso # (Auto) 0.0 Abs Immat Gran (auto) 0.03 Absolute Neuts (auto) 5.5 Absolute Nucleated RBC 0.000 Nucleated RBC % (auto) 0.0 D-Dimer High Sensitivty 506 Anion Gap 7 L Estim Creat Clear Calc 73.7 Estimated GFR > 60 Random Glucose 87 Calcium 9.2 Total Bilirubin 0.9 AST 21 ALT 17 Alkaline Phosphatase 112 Troponin I High Sens 7.7 NT-Pro-B Natriuret Pep 158.0 Total Protein 6.2 L Albumin 4.0 Imaging Radiologist's Impressions: Impressions Chest X-Ray 06/22/25 12:10 IMPRESSION: No acute disease. Low lung volumes. Progressing right shoulder degenerative change Left subcoracoid ossified body. Electronically signed by: Justin Evans MD 06/22/2025 12:48 PM EDT RP Chest CTA 06/22/25 15:22 IMPRESSION: No acute pulmonary artery emboli. No aneurysm or dissection, thoracic aorta. Pulmonary edema versus multifocal pneumonia versus pneumonitis. Cholelithiasis.. Fleischner guidelines were followed. Electronically signed by: Loco Hernandez MD 06/22/2025 03:59 PM EDT RP Assessment and Plan (1) Pneumonia: Qualifiers: Laterality: unspecified laterality Lung location: unspecified part of lung Pneumonia type: due to unspecified organism Qualified Code(s): J18.9 - Pneumonia, unspecified organism Status: Acute Plan This is a 79-year-old female with a history of cerebral palsy, primarily wheelchair-bound, hyperlipidemia, hypertension who presents to the emergency department with left-sided chest pain found to have multifocal pneumonia Multifocal pneumonia possible aspiration check RPP IV ceftriaxone, doxycycline speech therapy evaluation HTN Continue baseline medication HLD Continue baseline medication chronic LE edema BNP low, no acute CHF unable to tolerate diuretics or compression stockings in the past DVT prophylaxis-Lovenox Quality Stroke Does the patient have a stroke diagnosis?: No VTE Prior VTE?: No VTE Risk Level:: Medical - moderate - high VTE Device Contraindication: N/A - Device Ordered VTE Drug Contraindication: N/A - Med Ordered
--- NOTE | 2025-06-22 17:40 | PHA.MEDREC ---
Addendum entered by Chelo Trinh RPh 06/22/25 17:53: reviewed by [facility]. Original Note: Pharmacy Consult ? Medication Reconciliation Pharmacy has completed the medication reconciliation. Spoke with pt and she confirmed her medications. Pt confirmed she is still taking Sulindac 200mg tablet 1 BID and confirmed she has a bunch at home .
--- NOTE | 2025-06-22 18:15 | HO.NURTONUR ---
Pt comes from assisted living facility w/ c/o L under breast pain that started yesterday am and worsened today. Pt denies fevers/chills. Described pain as sharp and radiating to back. CT shows pna. Pt has pmhx of CP but is very indep i s/c. Tolerates po meds whole and thin liquids. Although pt is continent, purewick is in place.
[2025-06-22] MEDS: 0.9 % Sodium Chloride Flush 3 ML SYRINGE IVFLUSH (20:20)
[2025-06-23] VITALS (8 sets, daily range): BP systolic 103–145; BP diastolic 54–79; PULSE 56–83; RESP 14–20; TEMP 35.8–36.4; O2SAT 92–100
[2025-06-23 07:39] LABS: Anion Gap 10 (12-20); Blood Urea Nitrogen 21 mg/dL (9-16); Calcium 8.7 mg/dL (8.4-10.2); Carbon Dioxide 28 mmol/L (22-29); Chloride 111 mmol/L (96-108); Creatinine Clr Calc Pharmacy 76.2; Estimated Glomerular Filt Rate > 60; Potassium 4.5 mmol/L (3.3-5.1); Sodium 144 mmol/L (135-145)
--- NOTE | 2025-06-23 08:28 | P.PNIM_ITS ---
Subjective Subjective Date of Service: 06/23/25 Interval History: Patient is lying in bed comfortably. Complaining of left-sided lateral chest pain, pleuritic in nature, worsens with deep breathing and with cough. Patient's pain is worse with direct palpation of the anterolateral aspect of the chest. No fevers chills or rigors. Remains on O2 Review of Systems Review of Systems: Yes all other systems are reviewed and are negative Physical Exam 2 Exam: Exam: General: A&O x3, oriented to time place person and situation, comfortable, no pain Cardiac: S1, S2 auscultated with no S3/4, no MRG. Well perfused. Respiratory: Reduced breath sounds bilaterally at the bases, with fine crepitations auscultated, mild end expiratory wheezing auscultated at the upper to mid zones bilaterally. On O2 1-2 L NC. No peripheral or central cyanosis GI/ : No abdominal pain on palpation, no masses or distentions. MSK: Normal ambulation without pain at bony prominences or musculature. Direct pain to palpation of the anterolateral aspect of the left chest wall, worse with deep inspiration and with coughing. Neurological: Normal neurological examination on overview, without obvious CN II-XII abnormalities. Vital Signs: Vital Signs: Last Vital Signs Temp 96.8 F 06/23/25 07:45 Pulse 56 06/23/25 07:45 Resp 14 06/23/25 07:45 BP 103/54 L 06/23/25 07:45 Pulse Ox 100 06/23/25 07:45 O2 Del Method Nasal Cannula 06/23/25 07:45 O2 Flow Rate 2 06/23/25 07:45 BMI result Body Mass Index 39.9 Objective Data Active Medications Acetaminophen (Acetaminophen 325 Mg Tablet) 650 mg PO Q6H PRN PRN Reason: Pain, Mild 1-3,fever,headache Atorvastatin Calcium (Atorvastatin Calcium 80 Mg Tablet) 80 mg PO BEDTIME [facility] Last Admin: 06/22/25 20:20 Dose: 80 mg Documented By: BRYSON Calcium Carbonate (Calcium Carbonate 750 Mg Tab.Chew) 750 mg PO Q4H PRN PRN Reason: Heartburn Enoxaparin Sodium (Enoxaparin Sodium 40 Mg/0.4 Ml Syringe) 40 mg SUBCUT Q24H [facility] Last Admin: 06/22/25 18:07 Dose: 40 mg Documented By: MICAH Furosemide (Furosemide 20 Mg/2 Ml Vial) 20 mg IVPUSH DAILY [facility]; Protocol Ceftriaxone Sodium 1 gm/ (Sodium Chloride) 50 mls @ 100 mls/hr IV Q24H [facility] Doxycycline Hyclate 100 mg/ (Sodium Chloride) 250 mls @ 166.67 mls/hr IV Q12H [facility] Last Infusion: 06/23/25 07:29 Dose: Infused Documented By: DOUGLAS Magnesium Hydroxide (Milk Of Magnesia 30 Ml Oral.Susp) 30 ml PO DAILY PRN PRN Reason: Constipation Meclizine HCl (Meclizine Hcl 25 Mg Tablet) 25 mg PO TID PRN PRN Reason: dizziness Melatonin (Melatonin 3 Mg Tablet) 6 mg PO BEDTIME PRN PRN Reason: Insomnia Metoprolol Succinate (Metoprolol Succinate Er 100 Mg Tab.Er.24h) 100 mg PO DAILY [facility]; Protocol Prednisone (Prednisone 20 Mg Tablet) 60 mg PO DAILY [facility] Pregabalin (Pregabalin 150 Mg Capsule) 300 mg PO BID [facility] Last Admin: 06/22/25 20:20 Dose: 300 mg Documented By: BRYSON Sodium Chloride (0.9 % Sodium Chloride Flush 3 Ml Syringe) 3 ml IVFLUSH QSHIFT [facility] Last Admin: 06/22/25 20:20 Dose: 3 ml Documented By: BRYSON Labs 06/22/25 14:11 06/23/25 06:29 Labs: Laboratory Results - last 24 hr 06/22/25 06/22/25 06/23/25 14:10 14:11 06:29 MCV 90.8 MCH 28.8 MCHC 31.7 RDW 13.2 Plt Count 199 MPV 9.5 Immature Gran % (Auto) 0.4 Neut % (Auto) 70.4 Lymph % (Auto) 19.[address] [place] % (Auto) 6.9 Eos % (Auto) 2.3 Baso % (Auto) 0.5 Lymph # (Auto) 1.5 [place] # (Auto) 0.5 Eos # (Auto) 0.2 Baso # (Auto) 0.0 Abs Immat Gran (auto) 0.03 Absolute Neuts (auto) 5.5 Absolute Nucleated RBC 0.000 Nucleated RBC % (auto) 0.0 Hold Purple Top SEE NOTE D-Dimer High Sensitivty 506 Anion Gap 7 L 10 L Estim Creat Clear Calc 73.7 76.2 Estimated GFR > 60 > 60 Random Glucose 87 85 Calcium 9.2 8.7 Total Bilirubin 0.9 AST 21 ALT 17 Alkaline Phosphatase 112 Troponin I High Sens 7.7 NT-Pro-B Natriuret Pep 158.0 Total Protein 6.2 L Albumin 4.0 Assessment and Plan (1) Hypertension: Status: Acute (2) Cerebral palsy: Status: Acute (3) Hypoxia: Status: Acute (4) Acute respiratory failure with hypoxia: Status: Acute (5) CAP (community acquired pneumonia): Status: Acute (6) Costochondral chest pain: Status: Acute (7) Acute exacerbation of CHF (congestive heart failure): Status: Acute Plan 79-year-old female, with a background history of cerebral palsy, wheelchair- bound, HLD, HTN, presents with left anterolateral atypical chest pain, admitted with acute hypoxic respiratory failure 2/2 multifocal pneumonia, acute CHF exacerbation with unknown EF & acute left-sided anterolateral costochondritis. Acute hypoxic respiratory failure Multifactorial etiology as below Continue oxygen as needed Aim for SpO2 > 92% Early mobilization Acapella versus incentive spirometer device Remainder remainder of plan as below Multifocal pneumonia PLAN - Prednisone 60mg OD PO - Ceftriaxone 1g daily IV - Doxycycline 100mg BID IV Possible CHF exacerbation Bilateral Pleural effusions PLAN - Furosemide 20mg IV daily - Encourage PO fluid (water) to avoid hypernatremia - ECHO - Daily weights - I/O q6hrly - BMP repeat this afternoon - Check magnesium Chest pain atypical Acute left anterolateral Costochondritis PLAN - Cyclobenzaprine 5mg TID PO scheduled - Lidocaine cream topically applied - Acetaminophen - Avoiding NSAIDs in setting of pneumonia for now; can be added once wheezing improves Dehydration Borderline hypernatremia Encourage hydration Monitor BMP closely sodium Cerebral Palsy Wheelchair-bound Physical therapy and OT as needed HTN Continue metoprolol 100 mg OD p.o. HLD Continue atorvastatin 80 mg OD p.o. [employer] - VTE: Enoxaparin 40 mg - CODE STATUS: DNR DNI - DIET: Cardiac Total time managing care of this patient today: 35 minutes. Quality Stroke Does the patient have a stroke diagnosis?: No VTE Prior VTE?: No VTE Risk Level:: Medical - moderate - high VTE Device Contraindication: N/A - Device Ordered VTE Drug Contraindication: N/A - Med Ordered
[2025-06-23 08:46] LABS: NT Pro B Type Natriuretic Pept 212.5 pg/mL (<300)
[2025-06-23] MEDS: Furosemide 20 MG/2 ML VIAL IVPUSH (09:08)
[2025-06-23] MEDS: Metoprolol Succinate ER 100 MG TAB.ER.24H PO (09:08)
[2025-06-23] MEDS: 0.9 % Sodium Chloride Flush 3 ML SYRINGE IVFLUSH ×3 (09:09→20:34)
[2025-06-23 10:39] LABS: Chlamydia pneumoniae PCR Not Detected (Not Detect.); Coronavirus 229E PCR Not Detected (Not Detect.); Coronavirus HKU1 PCR Not Detected (Not Detect.); Coronavirus NL63 PCR Not Detected (Not Detect.); Coronavirus OC43 PCR Not Detected (Not Detect.); RSV PCR Not Detected (Not Detect.); Rhino/Enterovirus PCR Not Detected (Not Detect.)
[2025-06-23 10:56] LABS: Influenza A H1 PCR Not Detected (Not Detect.); Influenza A H1-2009 PCR Not Detected (Not Detect.); Influenza A H3 PCR Not Detected (Not Detect.); SARS-CoV-2 PCR Not Detected (Not Detect.)
[2025-06-23 15:23] LABS: Anion Gap 11 (12-20); Blood Urea Nitrogen 21 mg/dL (9-16); Calcium 8.9 mg/dL (8.4-10.2); Carbon Dioxide 27 mmol/L (22-29); Chloride 109 mmol/L (96-108); Creatinine Clr Calc Pharmacy 80.9; Estimated Glomerular Filt Rate > 60; Potassium 4.2 mmol/L (3.3-5.1); Sodium 143 mmol/L (135-145)
--- NOTE | 2025-06-24 00:55 | PM.EVENT ---
Event Note Date of Service: 06/24/25 Event Note: Received message from nursing patient complaining of chronic shoulder pain and in the past has been using codeine. There are no narcotics currently on patient's med rec. Patient's age of 79 and systolics been running 103-110. This job specification writer offered Toradol IV as she received a dose yesterday with good effect. Patient agreed. Reviewed rationale for not ordering narcotics at this time with nursing. Also ordering heat packs she can be used p.r.n.. Time Spent With Patient Time: Total time managing care of this patient today ____ minutes.
[2025-06-24 06:46] LABS: Anion Gap 12 (12-20); Blood Urea Nitrogen 25 mg/dL (9-16); Calcium 9.1 mg/dL (8.4-10.2); Carbon Dioxide 26 mmol/L (22-29); Chloride 109 mmol/L (96-108); Creatinine Clr Calc Pharmacy 78.5; Estimated Glomerular Filt Rate > 60; Potassium 4.0 mmol/L (3.3-5.1); Sodium 143 mmol/L (135-145)
[2025-06-24 07:47] VITALS: BP 156/71; PULSE 70; RESP 16; TEMP 36.3; O2SAT 96
--- NOTE | 2025-06-24 08:14 | P.PNIM_ITS ---
Subjective Subjective Date of Service: 06/24/25 Interval History: Breathing has improved compared to yesterday. Still coughing, however improved. Review of Systems Review of Systems: Yes all other systems are reviewed and are negative Physical Exam 2 Exam: Exam: General: A&O x3, oriented to time place person and situation, comfortable, no pain Cardiac: S1, S2 auscultated with no S3/4, no MRG. Well perfused. Respiratory: Reduced breath sounds bilaterally at the bases, with fine crepitations auscultated, mild end expiratory wheezing auscultated at the upper to mid zones bilaterally. No peripheral or central cyanosis. On room air GI/ : No abdominal pain on palpation, no masses or distentions. MSK: Normal ambulation without pain at bony prominences or musculature. Direct pain to palpation of the anterolateral aspect of the left chest wall, worse with deep inspiration and with coughing. Neurological: Normal neurological examination on overview, without obvious CN II-XII abnormalities. Vital Signs: Vital Signs: Last Vital Signs Temp 97.4 F 06/24/25 07:47 Pulse 70 06/24/25 07:47 Resp 16 06/24/25 07:47 BP 156/71 H 06/24/25 07:47 Pulse Ox 96 06/24/25 07:47 O2 Del Method Room Air 06/24/25 07:47 O2 Flow Rate 2 06/23/25 15:32 BMI result Body Mass Index 39.9 Objective Data Active Medications Acetaminophen (Acetaminophen 325 Mg Tablet) 650 mg PO Q6H PRN PRN Reason: Pain, Mild 1-3,fever,headache Atorvastatin Calcium (Atorvastatin Calcium 80 Mg Tablet) 80 mg PO BEDTIME [facility] Last Admin: 06/23/25 20:33 Dose: 80 mg Documented By: BRYSON Calcium Carbonate (Calcium Carbonate 750 Mg Tab.Chew) 750 mg PO Q4H PRN PRN Reason: Heartburn Cyclobenzaprine HCl (Cyclobenzaprine Hcl 5 Mg Tablet) 5 mg PO TID [facility] Last Admin: 06/23/25 20:33 Dose: 5 mg Documented By: BRYSON Enoxaparin Sodium (Enoxaparin Sodium 40 Mg/0.4 Ml Syringe) 40 mg SUBCUT Q24H [facility] Last Admin: 06/23/25 18:00 Dose: 40 mg Documented By: YOGESH Furosemide (Furosemide 20 Mg/2 Ml Vial) 20 mg IVPUSH DAILY [facility]; Protocol Last Admin: 06/23/25 09:08 Dose: 20 mg Documented By: YOGESH Ceftriaxone Sodium 1 gm/ (Sodium Chloride) 50 mls @ 100 mls/hr IV Q24H [facility] Last Infusion: 06/23/25 16:53 Dose: Infused Documented By: YOGESH Doxycycline Hyclate 100 mg/ (Sodium Chloride) 250 mls @ 166.67 mls/hr IV Q12H [facility] Last Infusion: 06/24/25 07:35 Dose: Infused Documented By: YOGESH Lidocaine HCl (Lidocaine 4 % Cream Kit) 1 appl TOPICAL Q8H [facility]; Protocol Last Admin: 06/24/25 01:09 EST Dose: Not Given Documented By: BRYSON Non-Admin Reason: Med Not Available Magnesium Hydroxide (Milk Of Magnesia 30 Ml Oral.Susp) 30 ml PO DAILY PRN PRN Reason: Constipation Meclizine HCl (Meclizine Hcl 25 Mg Tablet) 25 mg PO TID PRN PRN Reason: dizziness Melatonin (Melatonin 3 Mg Tablet) 6 mg PO BEDTIME PRN PRN Reason: Insomnia Metoprolol Succinate (Metoprolol Succinate Er 100 Mg Tab.Er.24h) 100 mg PO DAILY [facility]; Protocol Last Admin: 06/23/25 09:08 Dose: 100 mg Documented By: YOGESH Prednisone (Prednisone 20 Mg Tablet) 60 mg PO DAILY [facility] Last Admin: 06/23/25 09:08 Dose: 60 mg Documented By: YOGESH Pregabalin (Pregabalin 150 Mg Capsule) 300 mg PO BID [facility] Last Admin: 06/23/25 20:34 Dose: 300 mg Documented By: BRYSON Sodium Chloride (0.9 % Sodium Chloride Flush 3 Ml Syringe) 3 ml IVFLUSH QSHIFT [facility] Last Admin: 06/23/25 20:34 Dose: 3 ml Documented By: BRYSON Labs 06/22/25 14:11 06/24/25 05:48 Labs: Laboratory Results - last 24 hr 06/22/25 06/23/25 06/24/25 19:50 15:04 05:48 Hold Purple Top SEE NOTE Anion Gap 11 L 12 Estim Creat Clear Calc 80.9 78.5 Estimated GFR > 60 > 60 Random Glucose 146 H 113 Calcium 8.9 9.1 Respiratory Panel Garcia See Note Adenovirus (Rapid PCR) Not Detected B.pert (TEM-PCR) Not Detected B.parapertussis DNA PCR Not Detected C. pneumoniae DNA (PCR) Not Detected Coronavirus OC43 (PCR) Not Detected Coronavirus HKU1 (PCR) Not Detected Coronavirus 229E (PCR) Not Detected Coronavirus NL63 (PCR) Not Detected Human Metapneumovir PCR Not Detected Influenza A (RT-PCR) Not Detected Influenza A (H1) PCR Not Detected Influ A (H1/09) PCR Not Detected Influenza A (H3) PCR Not Detected Influenza B (RT-PCR) Not Detected M. pneumoniae (PCR) Not Detected Parainfluenza 1 (PCR) Not Detected Parainfluenza 2 (PCR) Not Detected Parainfluenza 3 (PCR) Not Detected Parainfluenza 4 (PCR) Not Detected RSV (PCR) Not Detected Entero/Rhino (PCR) Not Detected SARS-CoV-2 RNA (RT-PCR) Not Detected Assessment and Plan (1) Hypertension: Status: Acute (2) Acute exacerbation of CHF (congestive heart failure): Status: Acute (3) Cerebral palsy: Status: Acute (4) Chronic pain: Status: Acute (5) Pneumonia: Status: Acute (6) Hypoxia: Status: Acute (7) Acute respiratory failure with hypoxia: Status: Acute (8) CAP (community acquired pneumonia): Status: Acute Plan 79-year-old female, with a background history of cerebral palsy, wheelchair- bound, HLD, HTN, presents with left anterolateral atypical chest pain, admitted with acute hypoxic respiratory failure 2/2 multifocal pneumonia, acute CHF exacerbation with unknown EF & acute left-sided anterolateral costochondritis. Acute hypoxic respiratory failure Multifactorial etiology as below Continue oxygen as needed Aim for SpO2 > 92% Early mobilization Acapella versus incentive spirometer device Remainder remainder of plan as below Multifocal pneumonia PLAN - Prednisone 60mg OD PO - Ceftriaxone 1g daily IV - Doxycycline 100mg BID IV Possible CHF exacerbation Bilateral Pleural effusions PLAN - Furosemide 20mg IV daily - Encourage PO fluid (water) to avoid hypernatremia - ECHO - Daily weights - I/O q6hrly - BMP repeat this afternoon - Check magnesium Chest pain atypical Acute left anterolateral Costochondritis PLAN - Cyclobenzaprine 5mg TID PO scheduled - Lidocaine cream topically applied - Acetaminophen - Received toradol with good effect Dehydration Borderline hypernatremia Encourage hydration Monitor BMP closely sodium Cerebral Palsy Wheelchair-bound Physical therapy and OT as needed HTN Continue metoprolol 100 mg OD p.o. HLD Continue atorvastatin 80 mg OD p.o. QUALITY METRICS - VTE: Enoxaparin 40 mg - CODE STATUS: DNR DNI - DIET: Cardiac Total time managing care of this patient today: 35 minutes. Quality Stroke Does the patient have a stroke diagnosis?: No VTE Prior VTE?: No VTE Risk Level:: Medical - moderate - high VTE Device Contraindication: N/A - Device Ordered VTE Drug Contraindication: N/A - Med Ordered
[2025-06-24] MEDS: Furosemide 20 MG/2 ML VIAL IVPUSH (08:39)
[2025-06-24] MEDS: Metoprolol Succinate ER 100 MG TAB.ER.24H PO (08:39)
[2025-06-24] MEDS: 0.9 % Sodium Chloride Flush 3 ML SYRINGE IVFLUSH ×3 (08:40→20:24)
[2025-06-24 12:38] VITALS: BP 144/78; PULSE 72; RESP 16; TEMP 36; O2SAT 95
--- NOTE | 2025-06-24 14:05 | MHC.SLORD ---
Speech Language Pathology Order Status: Pt sleeping soundly when AEROSPACE PROJECT ENGINEER arrived. RN consulted, pt is tolerating diet as ordered, AEROSPACE PROJECT ENGINEER to follow up tomorrow if evaluation necessary.
[2025-06-24] MEDS: Albuterol/Iprat 2.5/0.5MG 3 ML AMPUL.NEB INHALE ×2 (15:25→20:19)
[2025-06-24 15:37] VITALS: PULSE 72; RESP 16
[2025-06-24 15:40] VITALS: BP 149/77; PULSE 84; RESP 18; TEMP 36; O2SAT 95
--- NOTE | 2025-06-24 15:56 | MHC.CM.PN ---
PT REPORTS SHE LIVES ALONE AT THE [facility] SHE HAS A JOB SERVICE CONSULTANT 3X/WEEK (A TOTAL OF 6 HOURS) SHE USES A WHEEL CHAIR, COMMODE, TOILET RISER AND HAS A CHAIR LIFT. SHE HAS A MOLST ON FILE, COPY OF HCP REQUESTED PCP: NORRIS KAUFMAN IMM DELIVERED DCP: HOME, RESUME JOB SERVICE CONSULTANT SERVICES BLS TRANSPORT
[2025-06-24] MEDS: Lidocaine 4 % Cream KIT 1 APPL TOPICAL (16:07)
[2025-06-24] MEDS: guaiFEN/Codeine SF 200/20/10ML 10 ML LIQUID PO (18:02)
[2025-06-24 18:59] VITALS: BP 132/77; PULSE 82; RESP 18; TEMP 36; O2SAT 94
[2025-06-24 20:21] VITALS: PULSE 76; RESP 18
[2025-06-25] VITALS (10 sets, daily range): BP systolic 126–174; BP diastolic 60–81; PULSE 65–78; RESP 16–20; TEMP 36–36.7; O2SAT 92–97; BMI 39.9
[2025-06-25 06:18] LABS: Anion Gap 10 (12-20); Blood Urea Nitrogen 30 mg/dL (9-16); Calcium 8.8 mg/dL (8.4-10.2); Carbon Dioxide 26 mmol/L (22-29); Chloride 110 mmol/L (96-108); Creatinine Clr Calc Pharmacy 89.3; Estimated Glomerular Filt Rate > 60; Potassium 4.0 mmol/L (3.3-5.1); Sodium 142 mmol/L (135-145)
--- NOTE | 2025-06-25 07:00 | CA_ITS ---
Transthoracic Echocardiogram Patient (Last, First, Middle): Claudia Godfrey C Gender: Female Date of : 1945 Age: 79 Procedure Date: 06/25/2025 Procedure Type: Transthoracic Echocardiogram Location: S3E Height: 157.48 cm Weight: 98.88 kg BSA: 1.98 m2 Heart Rate: bpm BP: 155 / 72 mmHg Mate First: BRITNEY Referring MD: Jose Jennings MD Symptoms: chf exacerbation Study Quality: Fair, contrast Conclusions: - Normal left ventricular cavity size. There is normal left ventricular wall thickness. The left ventricular systolic function is hyperdynamic. The visually estimated ejection fraction is >70%. - E/E prime ratio is between 8 and 15 consistent with indeterminate filling pressures. - Normal right ventricular cavity size and systolic function. - There is mild dilatation of the ascending aorta measuring 4.00 cm. Findings Procedure Information Contrast agent, definity, is being given per protocol without apparent complications. Left Ventricle Normal left ventricular cavity size. There is normal left ventricular wall thickness. The left ventricular systolic function is hyperdynamic. The visually estimated ejection fraction is >70%. There is no evidence of regional wall motion abnormalities. Abnormal diastolic function is noted. Spectral Doppler is indicative of an impaired relaxation filling pattern. E/E prime ratio is between 8 and 15 consistent with indeterminate filling pressures. Right Ventricle Normal right ventricular cavity size and systolic function. Atria The left atrium is normal in size. The right atrium is normal in size. Aortic Valve There is a normal trileaflet aortic valve. There is mild calcification of the aortic valve. There is no aortic valve stenosis. There is no aortic valve regurgitation. Mitral Valve Normal mitral valve structure and function. There is no mitral valve regurgitation. There is no mitral valve stenosis. Pulmonic Valve The pulmonic valve is normal. There is no pulmonic valve regurgitation. Tricuspid Valve Normal tricuspid valve structure. There is no tricuspid valve regurgitation. Normal right atrial pressure. There is no evidence of pulmonary hypertension. Great Vessels There is mild dilatation of the ascending aorta measuring 4.00 cm. The visualized portions of the pulmonary artery and branches are normal. Venous The inferior vena cava is normal in size and collapses greater than 50% with inspiration. Pericardium/Pleural There is no evidence of pericardial effusion. Prior Study Comparison No prior study available for comparison. Measurements 2D Linear Measurements IVSd: 0.90 0.6-0.9/0.6-1.0 cm LVIDd: 3.22 3.9-5.3/4.2-5.9 cm LVIDd Index: 1.63 2.4-3.2/2.2-3.1 cm/m2 LVIDs: 2.08 2.0-3.6 cm LVPWd: 0.87 0.7-1.1 cm LA Diam: 3.60 2.7-3.8/3.0-4.0 cm LAIDs Index: 1.82 1.5-2.3 cm/m2 LV Mass: 93.96 67-162/88-224 g LV Mass Index: 47.45 43-95/49-115 g/m2 LVOT Diam: 2.00 3.0+(-)1.3 cm 2D Systolic Function EF 4C: 75.30 >55% EF 2C: 71.50 >55% EF BiP: 73.50 >55% Mitral Valve MV Pk E: 0.92 MV PK A: 1.21 MV Decel Time: 259.00 E/A: 0.80 E'Lateral: 8.27 E'Medial: 6.74 E/E' Med: 13.60 E/E' Lat: 11.10 PHT: 76.00 MVA PHT: 2.89 Decel [place]: 3.54 Aortic Valve AoV Pk Evan: 1.55 AoV Mn Evan: 1.07 AoV VTI: 0.34 AoV Pk Grad: 10.00 Aov Mn Grad: 5.00 SID Cont.VTI: 2.88 LVOT LVOT Pk Evan: 1.33 LVOT Mn Evan: 0.98 LVOT VTI: 0.31 LVOT Pk Grad: 7.00 LVOT Mn Grad: 4.00 LVOT Diam: 2.00 LVOT Area: 3.14 Diastolic Function MV Pk E: 0.92 MV Pk A: 1.21 E/A: 0.80 E'Medial: 6.74 E/E' Med: 13.60 E' Laterial: 8.27 E/E' Lat: 11.10 Right Ventricle TAPSE (mm): 20.00 TVS' Evan: 15.10 Tricuspid Valve TR Pk Evan: 1.82 TR Pk Grad: 13.00 RA Press: 3.00 RVSP: 16.00 Great Vessels Aorta Sinus of Valsalva: 3.19 2.0-3.5 cm Ao Asc: 4.00 2.1-3.4 cm Ao Arch: 3.50 Updated in Other Vendor System with Status of Final Irvin Watkins MD electronically signed on 06/26/2025 6:26:12 PM with status of Final
[2025-06-25] MEDS: Albuterol/Iprat 2.5/0.5MG 3 ML AMPUL.NEB INHALE ×4 (07:39→19:54)
--- NOTE | 2025-06-25 09:02 | P.PNIM_ITS ---
Subjective Subjective Date of Service: 06/25/25 Interval History: Pt has near self limited aspiration event 2/ not fully having aspiration precautions, thankfully it was self limited I answered her questions about her health SHe passsed swallow eval - hence diet advanced BP slightly higher - she responded to oral BP meds will try to deescalate abx based on HDS tomorrow Review of Systems Review of Systems: Yes all other systems are reviewed and are negative Physical Exam 2 Exam: Exam: General: slow speech, appears clinically hypovolemic Cardiac: NSR Respiratory: dec breath sounds at bases, L>R, Chest pain redemostrated to palpation GI/ : No abdominal pain on palpation, no masses or distentions. Vital Signs: Vital Signs: Last Vital Signs Temp 98.1 F 06/25/25 07:18 Pulse 65 06/25/25 07:39 Resp 17 06/25/25 07:39 BP 168/81 H 06/25/25 07:18 Pulse Ox 97 06/25/25 07:18 O2 Del Method Room Air 06/25/25 07:18 O2 Flow Rate 2 06/23/25 15:32 BMI result Body Mass Index 39.9 Objective Data Active Medications Acetaminophen (Acetaminophen 325 Mg Tablet) 650 mg PO Q6H PRN PRN Reason: Pain, Mild 1-3,fever,headache Last Admin: 06/25/25 06:25 Dose: 650 mg Documented By: JOSE Albuterol/Ipratropium (Albuterol/Iprat 2.5/0.5mg 3 Ml Ampul.Neb) 3 ml INHALE RQ4H WHILE AWAKE [facility] Last Admin: 06/25/25 07:39 Dose: 3 ml Documented By: [place] Atorvastatin Calcium (Atorvastatin Calcium 80 Mg Tablet) 80 mg PO BEDTIME [facility] Last Admin: 06/24/25 20:20 Dose: 80 mg Documented By: JOSE Calcium Carbonate (Calcium Carbonate 750 Mg Tab.Chew) 750 mg PO Q4H PRN PRN Reason: Heartburn Cyclobenzaprine HCl (Cyclobenzaprine Hcl 5 Mg Tablet) 5 mg PO TID [facility] Last Admin: 06/24/25 20:20 Dose: 5 mg Documented By: JOSE Doxycycline Monohydrate (Doxycycline Monohydrate 100 Mg Capsule) 100 mg PO Q12H [facility] Enoxaparin Sodium (Enoxaparin Sodium 40 Mg/0.4 Ml Syringe) 40 mg SUBCUT Q24H [facility] Last Admin: 06/24/25 17:24 Dose: 40 mg Documented By: YOGESH Furosemide (Furosemide 20 Mg/2 Ml Vial) 20 mg IVPUSH DAILY [facility]; Protocol Last Admin: 06/24/25 08:39 Dose: 20 mg Documented By: YOGESH Guaifenesin/Codeine Phosphate (Guaifen/Codeine Sf 200/20/10ml 10 Ml Liquid) 10 ml PO Q6H PRN PRN Reason: Cough Last Admin: 06/24/25 18:02 Dose: 10 ml Documented By: YOGESH Ceftriaxone Sodium 1 gm/ (Sodium Chloride) 50 mls @ 100 mls/hr IV Q24H [facility] Last Infusion: 06/24/25 17:07 Dose: Infused Documented By: YOGESH Lidocaine HCl (Lidocaine 4 % Cream Kit) 1 appl TOPICAL Q8H [facility]; Protocol Last Admin: 06/25/25 00:01 Dose: Not Given Documented By: JOSE Non-Admin Reason: Patient Asleep Magnesium Hydroxide (Milk Of Magnesia 30 Ml Oral.Susp) 30 ml PO DAILY PRN PRN Reason: Constipation Meclizine HCl (Meclizine Hcl 25 Mg Tablet) 25 mg PO TID PRN PRN Reason: dizziness Melatonin (Melatonin 3 Mg Tablet) 6 mg PO BEDTIME PRN PRN Reason: Insomnia Metoprolol Succinate (Metoprolol Succinate Er 100 Mg Tab.Er.24h) 100 mg PO DAILY [facility]; Protocol Last Admin: 06/24/25 08:39 Dose: 100 mg Documented By: YOGESH Prednisone (Prednisone 20 Mg Tablet) 60 mg PO DAILY [facility] Last Admin: 06/24/25 08:39 Dose: 60 mg Documented By: YOGESH Pregabalin (Pregabalin 150 Mg Capsule) 300 mg PO BID [facility] Last Admin: 06/24/25 20:20 Dose: 300 mg Documented By: JOSE Sodium Chloride (0.9 % Sodium Chloride Flush 3 Ml Syringe) 3 ml IVFLUSH QSHIFT [facility] Last Admin: 06/24/25 20:24 Dose: 3 ml Documented By: JOSE Labs 06/22/25 14:11 06/25/25 05:41 Labs: Laboratory Results - last 24 hr 06/25/25 05:41 Anion Gap 10 L Estim Creat Clear Calc 89.3 Estimated GFR > 60 Random Glucose 98 Calcium 8.8 Assessment and Plan (1) Acute exacerbation of CHF (congestive heart failure): Status: Acute (2) Cerebral palsy: Status: Acute (3) Chronic pain: Status: Acute (4) Pneumonia: Status: Acute Plan Pt is a 79 yo F with PMH of CP, wheelchair-bound, HLD, HTN who presented with SOB/CHAMBERLAIN and noted to have Resp distress likely 2/2 AECOPD vs A/C asp pneumonitis (2/2 CP). AHRD likely 2/2 AECOPD vs A/C asp pneumonitis (baseline CP) Pt has already received 3.5 days of IV abx , hence any labwork like BC X2, MRSA etc would be unyielding Abx - She has received 3.T days of Ceftriaxone and Doxycycline - will switch Ceftriaxone to Augmentin WIll check MRSA nares- if -ve, can DC Doxycycline COPD rx wih steroids, abx and nebs humphrey and prn Advised acapella valve- she endorses difficulty using it Pt high risk of Asp - passed official swallow eval - Pulm hygeine , ASp precautions Pleural effusions - without obv BNP elevation , the crackles which appear to be baseline for her TTE ordered and awaiting read For now , we will rx with lasix Chest pain atypical - likely Acute L AL Costochondritis - Cyclobenzaprine 5mg TID PO scheduled - Lidocaine cream topically applied - Acetaminophen Dehydration / Borderline hypernatremia - resolving with IVF Cerebral Palsy , Wheelchair-bound Physical therapy and OT as needed HTN Continue metoprolol 100 mg OD p.o. HLD Continue atorvastatin 80 mg OD p.o. DVT prophylaxis Lovenox 40mg Disposition - Pt needs continued care, observation , vital check, and monitiring, and high asp risk This note is constructed using voice recognition software. While every effort has been made to ensure accuracy, visiting teacher errors may have been included. Total time managing care of this patient today: 35 minutes. Quality Stroke Does the patient have a stroke diagnosis?: No VTE Prior VTE?: No VTE Risk Level:: Medical - moderate - high VTE Device Contraindication: N/A - Device Ordered VTE Drug Contraindication: N/A - Med Ordered
[2025-06-25] MEDS: Furosemide 20 MG/2 ML VIAL IVPUSH (09:36)
[2025-06-25] MEDS: Metoprolol Succinate ER 100 MG TAB.ER.24H PO (09:37)
[2025-06-25] MEDS: 0.9 % Sodium Chloride Flush 3 ML SYRINGE IVFLUSH ×3 (09:44→20:23)
--- NOTE | 2025-06-25 10:46 | MHC.SL.SWA ---
Speech Pathologist Impression: Mild oropharyngeal dysphagia secondary to CP Risk of Aspiration Due to: Dysphasia Diet Status: Continue on NDD3 diet w/Thin liquids, straws ok. Pills whole with liquid or as pt prefers. Pt needs 1:1 assist for all PO. Liquid Consistency and Strategies for Safe Swallow: Liquid Intake Recommendation: Thin Liquid Intake Strategies: Solid Food Consistency: Dietary Recommendations: Chopped/Advanced (NDD3) Additional Modifications to Solid Foods: Recommend NDD3 with THIN liquids (straws ok), pills whole with liquid. D/t involuntary movements of extremities and head, pt requires total 1:1 assistance with tray set up and feeding. Aspiration precautions. Sent Melfa Message w/ recommendations to MD, RN. OPERATIONAL INTELLIGENCE OFFICER will continue to follow. Oral Medication Intake: Whole with Liquid Please contact the pharmacy regarding appropriate crushable or liquid drug formulations that are available whenever modified delivery is recommended. Compensatory Strategies and Precautions to be Taken for Safe Swallow: Supervision While Eating and Drinking for Safe Swallow: Total Assistance (1:1) Foods to Avoid: Hard, difficult to chew solids Swallowing Recommended Treatments: Recommendation for Speech: Inpatient Speech Therapy Comment: Pt has CP, with mild to moderate dysarthria at baseline, mild dysphagia historically. Pt able to move jaw, lips, tongue and pharynx with adequate efficiency. Pt needs 1:1 assist for feeding at all times. Pt tolerated soft solids/thin liquids by straw with adequate oropharyngeal coordination, no overt s/s of aspiration with PO intake. Pt takes meds whole with liquid. Recc NDD3 diet as ordered, thin liquids, aspiration precautions, 1:1 assist with all PO intake. MD and RN notified of findings via secure text. White board in pt room updated. Frequency/Duration: Followup as indicated Date Range for Service Req: Timeline to reassess: Sales Vice President Clinican/Clinical Fellow: No Supervisory Statement: I have reviewed and agree with the student/clinical fellow's documentation: N/A Speech Language Pathologist: Eri Cullen M.S., CCC-OPERATIONAL INTELLIGENCE OFFICER
--- NOTE | 2025-06-25 12:23 | HO.WOUND ---
Wound Consult: Initial 79 yr old female admitted to [facility] on 06/23/25 - See progress notes and H&P for detailed history. Wound consult placed for groin. Patient agreeable to assessment, personal aide at bedside. Patient at times incontinent with deep skin folds. Bilateral groin is intact with moist pink skin. Bilateral breast with moist pink skin, right breast more than left with fungal appearing rash with satellite lesions, patient reports itch to the area. TT to provider for antifungal powder. Recommendations: 1. Turn and Reposition every 2 hours and as needed for patient comfort. Use pillows or wedges to support off loading positions. 2. Off Load all bony prominences with use of pillows and heel boots if needed. Apply Preventative foams where needed. 3. Monitor for incontinence and moisture control, use barrier creams when needed for prevention and treatment. 4. Provide adequate and supplemental nutrition. 5. Order or Continue low air loss mattress. 6. When applicable maintain blood glucose levels per Providers order. Bilateral breasts: assess all skin folds daily. routine gentle cleansing of skin folds, avoid scrubbing, pat area dry. avoid placing products in skin folds that hold moisture against the skin. apply antifungal medication per provider orders, use only a light dusting to prevent caking. insert interdry ag into skin folds leaving 2-3 exposed to promote moisture wicking and evaporation Bilateral groin: Cleanse with PH balance spray or wipes, pat dry. ?Apply thin layer of barrier cream to affected area. Apply twice daily and Reapply thin layer PRN after each episode of incontinence. Re-consult wound care Nurse for wound deterioration or wound changes.
--- NOTE | 2025-06-25 12:51 | PC.NURSE ---
Approximately 1230- patient was heard coughing loudly and persistently. This typewriter tester and RN Ivon Munguia arrived to bedside. Patient was assisted to sit up at a higher angle. Patient continued with strong cough. Face was red, but patient was able to speak. No abdominal thrusts were needed. Patient was attempting to eat lunch and reports taking too large of a bite. SpO2 remained stable between 92-95% on room air. BP slightly elevated after incident. All other vital signs stable. Dr. Myers notified and arrived to bedside. No new orders given. Patient resting comfortably in bed with head of bed elevated. Extra pillows and blankets placed behind patient for further support. GISELLE Early at bedside assisting patient with meal. Speech therapist Eri Uribe notified.
[2025-06-25] MEDS: Miconazole Nitrate 2% Powder 85 GM Bottle 1 APPL TOPICAL ×2 (16:03→21:06)
[2025-06-26] VITALS (7 sets, daily range): BP systolic 125–156; BP diastolic 60–100; PULSE 60–84; RESP 17–20; TEMP 36.1–36.6; O2SAT 65–97; BMI 44.9
[2025-06-26 06:20] LABS: Anion Gap 11 (12-20); Blood Urea Nitrogen 29 mg/dL (9-16); Calcium 9.1 mg/dL (8.4-10.2); Carbon Dioxide 27 mmol/L (22-29); Chloride 108 mmol/L (96-108); Creatinine Clr Calc Pharmacy 90.9; Estimated Glomerular Filt Rate > 60; Potassium 4.0 mmol/L (3.3-5.1); Sodium 142 mmol/L (135-145)
--- NOTE | 2025-06-26 07:33 | PC.NURSE ---
Patient's SpO2 charted as 65 at 0338. Patient denies respiratory issues overnight and no complaints this morning. Respirations even and unlabored. SpO2 93% upon first assessment. Patient reports having slept well overnight. Per report from previous RN, no issues overnight with patient.
[2025-06-26] MEDS: Albuterol/Iprat 2.5/0.5MG 3 ML AMPUL.NEB INHALE ×3 (07:41→15:32)
[2025-06-26] MEDS: Furosemide 20 MG/2 ML VIAL IVPUSH (08:35)
[2025-06-26] MEDS: Miconazole Nitrate 2% Powder 85 GM Bottle 1 APPL TOPICAL (08:37)
[2025-06-26] MEDS: Metoprolol Succinate ER 100 MG TAB.ER.24H PO (08:37)
[2025-06-26] MEDS: 0.9 % Sodium Chloride Flush 3 ML SYRINGE IVFLUSH (08:38)
[2025-06-26 09:43] LABS: MRSA Nasal PCR POSITIVE (Negative); SA Nasal PCR POSITIVE (Negative)
--- NOTE | 2025-06-26 12:53 | MHC.SL.SWA ---
Speech Pathologist Impression: Mild oropharyngeal dyphagia Risk of Aspiration Due to: poor positioning, limited dentition, hx of PNA Dysphasia Diet Status: Recommend CONTINUE on diet of NDD3, Thin liquids with 1:1 feeding assistance, medications per patient's preference Liquid Consistency and Strategies for Safe Swallow: Liquid Intake Recommendation: Thin Liquid Intake Strategies: Solid Food Consistency: Dietary Recommendations: Chopped/Advanced (NDD3) Additional Modifications to Solid Foods: Oral Medication Intake: Whole with Liquid/ Per patient's preference Please contact the pharmacy regarding appropriate crushable or liquid drug formulations that are available whenever modified delivery is recommended. Compensatory Strategies and Precautions to be Taken for Safe Swallow: Sitting Upright (90 deg) Small Bites and Sips Alternate Liquids/Solids Rate of Ingestion Change Supervision While Eating and Drinking for Safe Swallow: Total Assistance (1:1) Foods to Avoid: Hard, difficult to chew solids Swallowing Recommended Treatments: Compens. Strategy Educat. Recommendation for Speech: Inpatient Speech Therapy Comment: Patient met in room for dysphagia treatment. Patient with choking episode yesterday during lunch, per RN note: Approximately 1230- patient was heard coughing loudly and persistently. This principal technical writer and RN Ivon Munguia arrived to bedside. Patient was assisted to sit up at a higher angle. Patient continued with strong cough. Face was red, but patient was able to speak. No abdominal thrusts were needed. Patient was attempting to eat lunch and reports taking too large of a bite. SpO2 remained stable between 92-95% on room air. BP slightly elevated after incident. All other vital signs stable. Dr. Myers notified and arrived to bedside. No new orders given. Patient resting comfortably in bed with head of bed elevated. Extra pillows and blankets placed behind patient for further support. GISELLE Early at bedside assisting patient with meal. Per discussion with RN prior to patient, positioning and self-feeding likely factors of this episode. Steps are being taken to ensure patient positioning and assistance with feeding. Patient tolerating breakfast, however noted difficulties with Faroese toast and ASSISTANT NURSE MANAGER smashing banana further. Patient given turkey sandwich, megan crackers, and pudding this date- along with thin liquids. Patient reporting no difficulties with swallowing this morning. Patient typically does not wear dentures during PO intake, consuming PO edentulous. Patient encouraged to keep upper denture in to assist with mastication of advanced solids; patient agreeable. Patient with occasional prolonged mastication, adequate cohesion and clearance of all solids given. Patient with cough x1; noted turning red but no distress reported- likely baseline respiratory. Patient with no other overt s/sx of penetration/aspiration. Patient's HOB not elevated to 90 degrees, pillows in place to assist with positioning. Encouraged patient to lean forward and reposition self to midline when positioning decreases. Patient able to reposition self and understand when repositioning is needed. Patient may benefit from meals OOB in chair for better positioning. Patient able to feed self but unable to control bolus size d/t spastic movements/physical impairment d/t cerebral palsy. Patient educated on compensatory strategies and diet recommendations. Patient demonstrated understanding and in agreement with POC. Recommend CONTINUE with diet of NDD3, Thin liquids with 1:1 feeding assistance to ensure controlled bite sizes and use of other compensatory strategies (small sips/bites, adequate positioning/upright as much as possible, alternate liquids/solids, slow rate of feeding). RN updated in person on diet recommendations. Frequency/Duration: Followup as indicated Date Range for Service Req: Timeline to reassess: Client Server Programmer Clinican/Clinical Fellow: No Supervisory Statement: I have reviewed and agree with the student/clinical fellow's documentation: N/A Speech Language Pathologist: Gali Givens M.A., CCC-LEARNING DISABLED TEACHER
--- NOTE | 2025-06-26 13:52 | MHC.CM.PN ---
DP: PT HAS BEEN MEDICALLY CLEARED FOR DC HOME WITH RESUMPTION OF [facility] FOR SN VISITS. BLS TRANSPORT BOOKED FOR 4 PM [facility]IA [facility]. RN AWARE. [facility] UPDATED ON TODAY'S DC.
--- NOTE | 2025-06-26 14:55 | HO.PM.IMPN ---
Subjective Subjective Date of Service: 06/26/25 Physical Exam Vital Signs: Vital Signs: Last Vital Signs Temp 97.5 F 06/26/25 07:43 Pulse 70 06/26/25 11:29 Resp 18 06/26/25 11:29 BP 145/75 H 06/26/25 10:58 Pulse Ox 95 06/26/25 07:43 O2 Del Method Room Air 06/26/25 07:43 O2 Flow Rate 2 06/23/25 15:32 BMI result Body Mass Index 44.9 Objective Data Active Medications Acetaminophen (Acetaminophen 325 Mg Tablet) 650 mg PO Q6H PRN PRN Reason: Pain, Mild 1-3,fever,headache Last Admin: 06/25/25 06:25 Dose: 650 mg Documented By: JOSE Albuterol/Ipratropium (Albuterol/Iprat 2.5/0.5mg 3 Ml Ampul.Neb) 3 ml INHALE RQ4H WHILE AWAKE ON LICENSE OF [facility] Last Admin: 06/26/25 11:27 Dose: 3 ml Documented By: [place] Amoxicillin/Clavulanate Potassium (Amoxicillin/Potassium Clav 875 Mg Tablet) 875 mg PO Q12H ON LICENSE OF [facility] Last Admin: 06/26/25 08:37 Dose: 875 mg Documented By: LIZABETH Atorvastatin Calcium (Atorvastatin Calcium 80 Mg Tablet) 80 mg PO BEDTIME ON LICENSE OF [facility] Last Admin: 06/25/25 20:22 Dose: 80 mg Documented By: JOSE Calcium Carbonate (Calcium Carbonate 750 Mg Tab.Chew) 750 mg PO Q4H PRN PRN Reason: Heartburn Cyclobenzaprine HCl (Cyclobenzaprine Hcl 5 Mg Tablet) 5 mg PO TID ON LICENSE OF [facility] Last Admin: 06/26/25 08:35 Dose: 5 mg Documented By: LIZABETH Doxycycline Monohydrate (Doxycycline Monohydrate 100 Mg Capsule) 100 mg PO Q12H ON LICENSE OF [facility] Last Admin: 06/26/25 05:22 Dose: 100 mg Documented By: JOSE Enoxaparin Sodium (Enoxaparin Sodium 40 Mg/0.4 Ml Syringe) 40 mg SUBCUT Q24H ON LICENSE OF [facility] Last Admin: 06/25/25 17:13 Dose: 40 mg Documented By: LIZABETH Furosemide (Furosemide 20 Mg/2 Ml Vial) 20 mg IVPUSH DAILY ON LICENSE OF [facility]; Protocol Last Admin: 06/26/25 08:35 Dose: 20 mg Documented By: LIZABETH Guaifenesin/Codeine Phosphate (Guaifen/Codeine Sf 200/20/10ml 10 Ml Liquid) 10 ml PO Q6H PRN PRN Reason: Cough Last Admin: 06/24/25 18:02 Dose: 10 ml Documented By: YOGESH Lidocaine HCl (Lidocaine 4 % Cream Kit) 1 appl TOPICAL Q8H ON LICENSE OF [facility]; Protocol Last Admin: 06/26/25 08:38 Dose: Not Given Documented By: LIZABETH Non-Admin Reason: Patient Refused Magnesium Hydroxide (Milk Of Magnesia 30 Ml Oral.Susp) 30 ml PO DAILY PRN PRN Reason: Constipation Meclizine HCl (Meclizine Hcl 25 Mg Tablet) 25 mg PO TID PRN PRN Reason: dizziness Melatonin (Melatonin 3 Mg Tablet) 6 mg PO BEDTIME PRN PRN Reason: Insomnia Metoprolol Succinate (Metoprolol Succinate Er 100 Mg Tab.Er.24h) 100 mg PO DAILY ON LICENSE OF [facility]; Protocol Last Admin: 06/26/25 08:37 Dose: 100 mg Documented By: LIZABETH Miconazole Nitrate (Miconazole Nitrate 2% Powder 85 Gm Bottle) 1 appl TOPICAL BID ON LICENSE OF [facility]; Protocol Last Admin: 06/26/25 08:37 Dose: 1 appl Documented By: LIZABETH Prednisone (Prednisone 20 Mg Tablet) 40 mg PO DAILY ON LICENSE OF [facility] Last Admin: 06/26/25 08:37 Dose: 40 mg Documented By: LIZABETH Pregabalin (Pregabalin 150 Mg Capsule) 300 mg PO BID ON LICENSE OF [facility] Last Admin: 06/26/25 08:37 Dose: 300 mg Documented By: LIZABETH Sodium Chloride (0.9 % Sodium Chloride Flush 3 Ml Syringe) 3 ml IVFLUSH QSHIFT ON LICENSE OF [facility] Last Admin: 06/26/25 08:38 Dose: 3 ml Documented By: LIZABETH Labs 06/22/25 14:11 06/26/25 05:38 Labs: Laboratory Results - last 24 hr 06/25/25 06/26/25 22:23 05:38 Anion Gap 11 L Estim Creat Clear Calc 90.9 Estimated GFR > 60 Random Glucose 95 Calcium 9.1 Nasal Screen MRSA (PCR) POSITIVE A Nasal S. aureus Screen POSITIVE A Nasal MRSA/S.aureus Interp SEE NOTE Quality Stroke Does the patient have a stroke diagnosis?: No VTE Prior VTE?: No VTE Risk Level:: Medical - moderate - high VTE Device Contraindication: N/A - Device Ordered VTE Drug Contraindication: N/A - Med Ordered
--- NOTE | 2025-06-26 16:36 | P.DS_ITS ---
DS: Providers Provider Date of Service: 06/26/25 Date of admission: 06/23/25 09:41 Date of discharge: 06/26/25 Primary care physician: Latonia Richardson PA-C Consults: 06/25/25 11:33 Consult to Wound Care Routine Consulting Provider: [facility] W[facility] Care Management Reason for consultation: Redness to groin. DS: Diagnosis Discharge Diagnosis (1) Acute exacerbation of CHF (congestive heart failure): Status: Acute (2) Cerebral palsy: Status: Acute (3) Chronic pain: Status: Acute (4) Pneumonia: Status: Acute DS: Summary Hospital Course Hospital Course: Pt is a 79 yo F with PMH of CP, wheelchair-bound, HLD, HTN who presented with SOB/CHAMBERLAIN and noted to have Resp distress likely 2/2 AECOPD vs A/C asp pneumonitis (2/2 CP). AHRD likely 2/2 AECOPD vs A/C asp pneumonitis (baseline CP) MRSA pneumonia on doxycycline Patient presented to the ED with acute onset SOB/CHAMBERLAIN and was noted to have acute hypoxic respiratory distress likely in the setting of a COPD versus acute on chronic aspiration pneumonitis-patient is on muscle relaxants given her cerebral palsy. Patient underwent swallow eval which she passed. They recommended diet of NDD3, Thin liquids with 1:1 feeding assistance to ensure controlled bite sizes and use of other compensatory strategies (small sips/bites, adequate positioning/upright as much as possible, alternate liquids/solids, slow rate of feeding). RN updated in person on diet recommendations. Patient to complete 5 more days of antibiotics with Augmentin and doxycycline. Pt has already received 3.5 days of IV abx , hence any labwork like BC X2, MRSA etc would be unyielding Abx - She has received 3.T days of Ceftriaxone and Doxycycline - will switch Ceftriaxone to Augmentin COPD rx wih steroids, abx and nebs humphrey and prn Advised acapella valve- she endorses difficulty using it Pt high risk of Asp likely in the setting of muscle relaxants which she is prescribed secondary to her cerebral palsy- passed official swallow eval - Pulm hygeine , ASp precautions Cerebral palsy-chronic stable- continue home med Pleural effusions - without obv BNP elevation , the crackles which appear to be baseline for her, TTE done, awaiting read-PCP to follow-up She is being discharged on Lasix given her symptomatic improvement with Lasix Chest pain atypical - likely Acute L AL Costochondritis in the setting of chronic cough-she continued to endorse atypical chest pain and was reassured and workup negative for ACS - Cyclobenzaprine 5mg TID PO scheduled - Lidocaine cream topically applied - Acetaminophen Patient to follow up with PCP outpatient Dehydration / Borderline hypernatremia - resolved with IVF Cerebral Palsy , Wheelchair-bound Physical therapy and OT as needed HTN- Continue metoprolol 100 mg OD p.o. HLD -Continue atorvastatin 80 mg OD p.o. DVT prophylaxis Lovenox 40mg Disposition - Pt needs continued care, observation , vital check, and monitoring, and high asp risk This note is constructed using voice recognition software. While every effort has been made to ensure accuracy, box hinge and lock attacher errors may have been included. Patient was evaluated and deemed hemodynamically stable for discharge. I have answered her questions regarding her dyspnea and orthopnea and likely in the setting of anxiety. Reassurance given. Offered to start SSRI. Patient deferred Time Attestation Discharge Coordination Time (in mins): 45 Quality: Safe Use of Opioids Does Pt have an Active Cancer Diagnosis on the Problem List?: No Quality: Stroke Does the patient have a stroke diagnosis?: No Physical Exam Exam: Exam: General: slow speech, appears clinically hypovolemic Cardiac: NSR Respiratory: dec breath sounds at bases, L>R, Chest pain redemostrated to palpation GI/ : No abdominal pain on palpation, no masses or distentions. Vital Signs: Vital Signs: Last Vital Signs Temp 97.8 F 06/26/25 15:17 Pulse 76 06/26/25 15:35 Resp 20 06/26/25 15:35 BP 137/66 06/26/25 15:17 Pulse Ox 93 06/26/25 15:17 O2 Del Method Room Air 06/26/25 15:17 O2 Flow Rate 2 06/23/25 15:32 BMI result Body Mass Index 44.9 DS: Data Data Completed and Pending Labs on day of discharge: Laboratory Results - last 24 hr 06/25/25 06/26/25 22:23 05:38 Sodium 142 Potassium 4.0 Chloride 108 Carbon Dioxide 27 Anion Gap 11 L BUN 29 H Creatinine 0.57 Estim Creat Clear Calc 90.9 Estimated GFR > 60 Random Glucose 95 Calcium 9.1 Nasal Screen MRSA (PCR) POSITIVE A Nasal S. aureus Screen POSITIVE A Nasal MRSA/S.aureus Interp SEE NOTE Discharge Plan Discharge Anticipated Discharge Date/Time: 06/26/25 15:47 Patient Disposition: Home Health Service Discharge Diagnosis: AHRD likely 2/2 AECOPD vs A/C asp pneumonitis (baseline CP) Referrals: Mary SARMIENTO [Outside] - 1 Week Referral Note: resumption of home services Latonia Richardson PA-C [Primary Care Provider, Internal Medicine] - 1 Week Discharge Medications: New amoxicillin-pot clavulanate 875-125 mg Tablet 1 tab PO Q12H 5 Days Qty: 10 0RF doxycycline monohydrate 100 mg Capsule 100 mg PO Q12H 5 Days Qty: 10 0RF ipratropium-albuterol 0.5 mg-3 mg(2.5 mg base)/3 mL Solution For Nebulization 3 ml inhalation RQ4H WHILE AWAKE 30 Days Qty: 180 3RF cyclobenzaprine 5 mg Tablet 5 mg PO TID 30 Days Qty: 90 0RF prednisone 20 mg Tablet 40 mg PO DAILY 5 Days Qty: 10 0RF lidocaine-transparent dressing [LMX 4 Plus] 4 % Kit 1 ea topical Q8H Qty: 1 0RF Protocol: Apply to: Apply to: left lateral and anterior chest miconazole nitrate [Micro-Guard] 2 % Powder 1 appl topical BID Qty: 85 0RF Protocol: Apply to: Apply to: affected areas guaifenesin 100 mg/5 mL liquid 200 mg PO Q4H PRN (Reason: cough) Qty: 118 0RF Continued pregabalin 300 mg capsule 300 mg PO BID 90 Days Qty: 180 3RF metoprolol succinate 100 mg tablet extended release 24 hr 100 mg PO DAILY simvastatin 80 mg tablet 80 mg PO BEDTIME acetaminophen 325 mg Tablet 325 mg PO Q4H PRN (Reason: Pain) sulindac 200 mg tablet 200 mg PO BID meclizine 25 mg tablet 25 mg PO TID PRN (Reason: dizziness) Discharge Orders: Discharge Order (Routine); Ordered 06/26/25 Ordered By: Natacha Myers Diet: Low salt diet Activity on Discharge: As tolerated Stand Alone Forms: Patient Portal Discharge page Print Language: Khmer Care Plan Goals: Follow up with PCP Follow up with pulmonology outpatient Patient to complete antibiotic course Patient to use nebulizers as instructed Patient advised to come back to the ED if she has any issues Health Concerns: See above Plan of Treatment: See above Assessment: See above Patient Instructions: COPD (Chronic Obstructive Pulmonary Disease) (DC)
--- NOTE | 2025-06-26 17:07 | PC.NURSE ---
AIR QUALITY SPECIALIST came to help D/C patient, AIR QUALITY SPECIALIST going to pharmacy to pick up worker her meds. Unfortunately for some reason the AIR QUALITY SPECIALIST did not have money on her for the co pay for Medications, states she will come back tomorrow morning to pick up worker meds.
== END 2025-06-26 16:56 | disposition home health service (06) | DRG 177 ==
LOC: HO.ED 16:37 → HO.EDOVER 17:03 → HO.S3 18:04
PROVIDERS: Hospitalist; Physician Assistant Medical; Admitting Provider Physician Assistant Medical; Emergency Provider Emergency Medicine; PCP Physician Assistant Medical; Visit Provider Student in an Organized Health Care Education/Training Program
DX: J15.212 Pneumonia due to Methicillin resistant Staphylococcus aureus (principal); J96.01 Acute respiratory failure with hypoxia; J91.8 Pleural effusion in other conditions classified elsewhere; E87.0 Hyperosmolality and hypernatremia; J44.1 Chronic obstructive pulmonary disease with (acute) exacerbation; J44.0 Chronic obstructive pulmonary disease with (acute) lower respiratory infection; J69.0 Pneumonitis due to inhalation of food and vomit; Z99.3 Dependence on wheelchair; Z66 Do not resuscitate; M94.0 Chondrocostal junction syndrome [Tietze]; G80.9 Cerebral palsy, unspecified; E86.0 Dehydration; E78.5 Hyperlipidemia, unspecified; I11.0 Hypertensive heart disease with heart failure; I50.9 Heart failure, unspecified; Z20.822 Contact with and (suspected) exposure to COVID-19; Z79.899 Other long term (current) drug therapy
CPT/HCPCS: 36415; 71045; 71275; 80048; 80053; 83880; 84484; 85025; 85379; 87633; 87640; 87641; 92526; 92610; 93005; 93306; 99221; 99285; J0696; J1271; J1650; J1885; J1938; J2270; J2405; Q9957; Q9967

== ENCOUNTER → 2025-06-22 11:08 | Outpatient (BNV) | payer MEDICARE, SELFPAY | PROVIDERS: PCP Physician Assistant Medical; Visit Provider Radiology Diagnostic Radiology | DX: R07.89 Other chest pain (principal); R06.02 Shortness of breath; K80.20 Calculus of gallbladder without cholecystitis without obstruction | CPT/HCPCS: 71275 ==

== ENCOUNTER → 2025-06-22 11:08 | Outpatient (BNV) | payer MEDICARE, SELFPAY | PROVIDERS: Admitting Provider Physician Assistant Medical; Emergency Provider Emergency Medicine; PCP Physician Assistant Medical; Visit Provider Internal Medicine | DX: I49.9 Cardiac arrhythmia, unspecified (principal) | CPT/HCPCS: 93010 ==

== ENCOUNTER 2025-06-23 09:41 | Outpatient (BNV) | payer MEDICARE, SELFPAY | END 2025-06-25 07:00 | PROVIDERS: Admitting Provider Physician Assistant Medical; Emergency Provider Emergency Medicine; PCP Physician Assistant Medical; Visit Provider Internal Medicine Cardiovascular Disease | DX: I51.89 Other ill-defined heart diseases (principal); I77.810 Thoracic aortic ectasia | CPT/HCPCS: 93306 ==

== ENCOUNTER → 2025-06-23 09:41 | Outpatient (BNV) | payer MEDICARE, SELFPAY | PROVIDERS: Admitting Provider Physician Assistant Medical; Emergency Provider Emergency Medicine; PCP Physician Assistant Medical; Visit Provider Physician Assistant Medical | DX: I50.9 Heart failure, unspecified (principal); G80.9 Cerebral palsy, unspecified; G89.29 Other chronic pain; J18.9 Pneumonia, unspecified organism | CPT/HCPCS: 99233; 99239 ==